=== PATIENT | male | born 1975 | race Caucasian/White ===

== ENCOUNTER 2019-10-04 15:15 | Emergency (ER) | payer OTHER, SELFPAY ==
[2019-10-04 15:29] VITALS: BP 119/69; PULSE 99; RESP 16; TEMP 37; O2SAT 97
--- NOTE | 2019-10-04 15:46 | ED.EYEPROB ---
HPI - Eye Problem General Chief complaint: Eye Problems Stated complaint: eye problems Time Seen by Provider: 10/04/19 15:33 Source: patient and RN notes reviewed Mode of arrival: ambulatory Limitations: no limitations History of Present Illness HPI Narrative: Patient presents today complaining of a possible foreign body to his right eye. Approximately 2 hours ago, he was using a saw and believes he may have gotten sawdust in his eye. Denies vision changes or photophobia. He tried to flush with Visine and water without relief of symptoms. States the area of foreign body does not change. Visual acuity: Left eye: 20/30, right eye: 20/40 chief complaint: foreign body Related Data Allergies Allergy/AdvReac Type Severity Reaction Status Date / Time No Known Allergies Allergy Verified 10/04/19 15:21 Review of Systems Review of Systems: Narrative: CONSTITUTIONAL: Denies body aches, fever, chills, or sweats. EYES: Denies visual changes, redness, or discharge. Foreign body sensation right eye ENT: Denies rhinorrhea, congestion, sore throat, or otalgia. CARDIOVASCULAR: Denies chest pain, palpitations, or edema. RESPIRATORY: Denies cough or dyspnea. GASTROINTESTINAL: Denies abdominal pain, nausea, vomiting, or diarrhea. GENITOURINARY: Denies dysuria or hematuria. SKIN: Denies rash, itching, or wounds. MUSCULOSKELETAL: Denies back pain, joint pain, or myalgia. NEUROLOGIC: Denies headache, numbness, tingling, or weakness. PSYCH: Denies depression or anxiety. PMFSH Social History Social History Gender identity (if verbalized by the patient): Male Comments At time of signature, I have reviewed and agree with nursing past medical, surgical, social and family history unless otherwise noted. Please see nursing chart for further information. There is no relevant family history pertinent to the presenting complaint Exam Narrative: Exam Narrative: GENERAL: Well-appearing, well-nourished, and in no acute distress. HEAD: Normocephalic, atraumatic. EYES: EOMI. No redness or drainage. Conjunctivae normal. Punctate corneal abrasion to 6 oclock position of iris with fluorescein uptake. No foreign body noted. See procedure note. ENT: Mucous membranes pink and moist. NECK: Normal AROM. Supple. No lymphadenopathy. CHEST: No respiratory distress. EXTREMITIES: Normal range of motion. No edema. SKIN: Warm, dry, no rash. Capillary refill normal. Normal skin turgor. NEURO: No focal deficits. Alert and oriented x3. Gait steady. PSYCH: Normal affect. No signs of depression or anxiety. Course Vital Signs Vital signs: Vital Signs Temperature 98.6 F 10/04/19 15:29 Pulse Rate 99 10/04/19 15:29 Respiratory Rate 16 10/04/19 15:29 Blood Pressure 119/69 10/04/19 15:29 Pulse Oximetry 97 10/04/19 15:29 Temperature 98.6 F 10/04/19 15:29 Pulse Rate 99 10/04/19 15:29 Respiratory Rate 16 10/04/19 15:29 Blood Pressure 119/69 10/04/19 15:29 Pulse Oximetry 97 10/04/19 15:29 Reviewed. Pt has been instructed to follow up with his PCP regarding his elevated blood pressure today. Procedures Other Procedure Procedure 1: Other Procedure: Right eye was anesthetized with 1 drop of tetracaine and anesthesia was achieved. The eye was flushed with eye wash. Lid was inverted and examined. Moistened Qtip was used to sweep underneath the upper eyelid with 0 foreign bodies resulting. Cornea was dyed with fluorescein and 1 abrasions or ulcerations were noted. Pt tolerated procedure well. MDM - Eye Problem Differential Diagnosis Differential diagnosis: Likely corneal abrasion, conjunctivitis and corneal ulcer Critical Care Time Critical Care Time Critical Care Time: No Discharge Plan Discharge Clinical Impression: Corneal abrasion Qualifiers: Encounter type: initial encounter Laterality: right Qualified Code(s): S05.01XA - Injury of conjunctiva and corneal abrasion without foreign body, right eye, ini
== END 2019-10-04 15:59 | disposition home or self-care (01) ==
PROVIDERS: Emergency Provider Nurse Practitioner
DX: S05.01XA Injury of conjunctiva and corneal abrasion without foreign body, right eye, initial encounter (principal); X58.XXXA Exposure to other specified factors, initial encounter
CPT/HCPCS: 99213; A9270; G0463

== ENCOUNTER 2021-01-06 09:37 | Emergency (ER) | payer OTHER, SELFPAY ==
[2021-01-06 09:57] VITALS: BP 133/87; PULSE 59; RESP 18; TEMP 36.2; O2SAT 98
--- NOTE | 2021-01-06 10:37 | ED.SKABFB ---
HPI - Skin/Abscess/Foreign Bdy General Chief complaint: Skin/Abscess/Foreign Body Stated complaint: Infected Groin Area Time Seen by Provider: 01/06/21 10:37 Source: patient Mode of arrival: ambulatory Limitations: no limitations History of Present Illness HPI narrative: Victor Hugo Peacock is a 45 yo male with a PMH of heroin addiction hepatitis C, HTN, high cholesterol, [facility] with complaints of odor in the genital area states that he is broken out in that area. Has has red shiny area on the left perineal/inguinal area the patient perceives being odiferous;, used an antifungal for the area and has been picking on the area; he also has a 16-day-old open track jonathan on his left inner forearm. Patient is presently in recovery and is seeking treatment for skin rash in inguinal area and urine that smells Related Data Allergies Allergy/AdvReac Type Severity Reaction Status Date / Time No Known Allergies Allergy Verified 01/06/21 10:21 Review of Systems Review of Systems: CONSTITUTIONAL: Denies fever, chills, sweats. EYES: Denies visual changes, redness, discharge. ENT: Denies rhinorrhea, congestion, sore throat, otalgia. CARDIOVASCULAR: Denies chest pain, palpitations, edema. RESPIRATORY: Denies dyspnea, wheezing, cough GASTROINTESTINAL: Denies abdominal pain, nausea, vomiting, diarrhea. GENITOURINARY: Denies dysuria, hematuria, abnormal discharge. Has odor to urine, shiny coloration of inguinal area SKIN: Denies rash or itching. NEUROLOGIC: Denies numbness, or focal weakness. PSYCHIATRIC: Denies anxiety or depression. PMFSH Past Medical History Medical History Hepatitis C Opiate addiction Social History Social History (Updated 01/06/21 @ 11:00 by Damari Palomares CNP) Smoking packs per day: 1 Smoking cigarettes per day: 20.0 Smoking status: Current every day smoker Tobacco type: cigarettes Alcohol intake: former Substance use: former Substance use type: opiates Other substance usage details: Fentanyl and other Gender identity (if verbalized by the patient): Male Comments At time of signature, I agree with nursing past medical, surgical, social and family history. There is no relevant family history pertinent to the presenting complaint. Exam Narrative: GENERAL: This is a well-nourished, well-developed patient, in moderate distress. HEAD: normocephalic, atraumatic. EYES: Sclera clear/white. Vision is grossly intact. EARS: External ears normal,. Hearing grossly intact. NOSE: External nose normal without nasal discharge, nares without redness, no rhinorrhea. THROAT: Mucous membranes moist, NECK: Neck supple, non-tender CARDIOVASCULAR: Regular rate and rhythm without murmurs, gallops, or rubs. RESPIRATORY: Coarse to auscultation. Breath sounds equal bilaterally. No wheezes, rales, or rhonchi. GASTROINTESTINAL: Abdomen soft, non-tender, SKIN: warm, intact with scaly foul-smelling rash in the left inguinal area NEURO: awake, alert, and oriented to person, place and time. There were no obvious focal neurologic abnormalities. Steady gait EXTREMITIES: Normal range of motion. BACK: Nontender without deformity Course Course Emergency Course: Patient here for skin reaction genital area smelly UA negative started on nystatin, hydrocortisone cream 2.5% Cipro twice daily Follow-up with primary care physician Vital Signs Vital signs: Vital Signs Temperature 97.2 F L 01/06/21 09:57 Pulse Rate 59 L 01/06/21 09:57 Respiratory Rate 18 01/06/21 09:57 Blood Pressure 133/87 01/06/21 09:57 Pulse Oximetry 98 01/06/21 09:57 Temperature 97.2 F L 01/06/21 09:57 Pulse Rate 59 L 01/06/21 09:57 Respiratory Rate 18 01/06/21 09:57 Blood Pressure 133/87 01/06/21 09:57 Pulse Oximetry 98 01/06/21 09:57 MDM - Skin/Abscess/Foreign Bdy Lab Data Labs: Urine Glucose Negative
== END 2021-01-06 11:35 | disposition home or self-care (01) ==
PROVIDERS: Emergency Provider Nurse Practitioner
DX: R30.0 Dysuria (principal); L20.89 Other atopic dermatitis; F17.210 Nicotine dependence, cigarettes, uncomplicated; I10 Essential (primary) hypertension; E78.00 Pure hypercholesterolemia, unspecified; Z86.19 Personal history of other infectious and parasitic diseases
CPT/HCPCS: 81003; 99213; G0463

== ENCOUNTER 2021-02-02 09:43 | Emergency (ER) | payer OTHER, SELFPAY ==
--- NOTE | ~2021-02-02 | CT_ITS ---
EXAMINATION: CT brain wo con INDICATION: Psychosis, hallucinations COMPARISON: None TECHNIQUE: Standard unenhanced head CT. The dose-length product (DLP) was 605.33 mGy-cm. The mA was a djusted according to patient size. Iterative reconstruction technique was employed. FINDINGS: There is no intracranial hemorrhage, acute infarction, or abnormal mass lesion. The ventric les are normal. There is no abnormal mass effect or midline shift. The garg-white matter differentiat ion is normal. The basal cisterns are patent. The orbits are normal. The paranasal sinuses, mastoids and calvarium are normal. IMPRESSION: 1. No acute intracranial abnormality. Reviewed, dictated and finalized at location B. GY INFRASTRUCTURE ENGINEER
--- NOTE | ~2021-02-02 | XR_ITS ---
EXAMINATION: XR chest 2V DATE: 02/02/2021 11:16 INDICATION: Psychosis. Anxiety. TECHNIQUE: Frontal and lateral views of the chest were obtained. COMPARISON: Chest 2 views 07/02/2018 FINDINGS: The chest demonstrates clear lungs without pneumonia, pleural effusion, or pneumothorax. Th e heart size is normal. IMPRESSION: 1. No acute cardiopulmonary disease. Reviewed, dictated and finalized at location A. RESS PACKER
[2021-02-02 09:59] VITALS: BP 152/105; PULSE 100; RESP 20; TEMP 36.8; O2SAT 99
--- NOTE | 2021-02-02 10:04 | ED.GENADULT ---
HPI - General Adult General Chief complaint: Psychiatric Symptoms <JOSE Faustin Last Filed: 02/02/21 22:16> Stated complaint: anxiety <JOSE Faustin Last Filed: 02/02/21 22:16> Time Seen by Provider: 02/02/21 10:02 <JOSE Faustin Last Filed: 02/02/21 22:16> History of Present Illness HPI narrative: Patient is a 45-year-old male with history of substance abuse who comes emergency room today with concerns for hallucinations. Patient reports that since yesterday he has been having auditory hallucinations. He can hear voices telling him to go places and the voices are threatening to kill him. Says that for the last 2 nights he can feel someone trying to pull down his pants. He feels like someone is trying to control his mind. He thinks someone is drugging him. He does endorse being suicidal. He says that he is feeling suicidal because the voices are driving him nuts . When asked if he has a specific plan he just says the voices . He denies any homicidal ideation. Says that he last used fentanyl about 8 weeks ago. Says he last use being about 2 weeks ago. Says his only recent drug use was marijuana. Does not use alcohol. Does smoke cigarettes. Does not have any known chronic medical conditions. <JOSE Faustin Last Filed: 02/02/21 22:16> Related Data Home medications: Home Medications Medication Instructions Recorded Confirmed No Home Medications 02/02/21 02/02/21 <JOSE Faustin Last Filed: 02/02/21 22:16> Allergies/adverse reactions: Allergies Allergy/AdvReac Type Severity Reaction Status Date / Time No Known Allergies Allergy Verified 02/02/21 10:09 <JOSE Faustin Last Filed: 02/02/21 22:16> Review of Systems Constitutional: Constitutional: Reports as per HPI, Denies fever(s), Denies night sweats and Denies weakness <JOSE Faustin Last Filed: 02/02/21 22:16> Cardiovascular: Cardiovascular: Denies chest pain, Denies edema, Denies leg edema, Denies dyspnea and Denies orthopnea <Anthony MatyTarsha Quiroga PA-C Last Filed: 02/02/21 22:16> Respiratory: Respiratory: Denies cough and Denies dyspnea <Anthony MatyTarsha Quiroga PA-C Last Filed: 02/02/21 22:16> Gastrointestinal: Gastrointestinal: Denies abdominal pain, Denies constipation, Denies diarrhea, Denies nausea and Denies vomiting <Anthony MatyTarsha Quiroga PA-C - Last Filed: 02/02/21 22:16> Musculoskeletal: Musculoskeletal: Denies abnormal gait, Denies back pain, Denies numbness and Denies tingling <Anthony MatyTarsha Quiroga PA-C Last Filed: 02/02/21 22:16> Neurologic: Denies Abnormal speech present, Denies abnormal gait, Denies numbness, Denies tingling and Denies weakness <Anthony MatyTarsha Quiroga PA-C Last Filed: 02/02/21 22:16> Psychiatric: Psychiatric: Reports as per HPI, Reports anxiety and Reports paranoia <Anthony MatyTarsha Quiroga PA-C Last Filed: 02/02/21 22:16> [facility] Past Medical History Medical History: Medical History Hepatitis C Opiate addiction <Anthony MatyTarsha Quiroga PA-C Last Filed: 02/02/21 22:16> Social History Social History: Social History (Updated 01/06/21 @ 11:00 by Damari Palomares CNP) Smoking packs per day: 1 Smoking cigarettes per day: 20.0 Smoking status: Current every day smoker Tobacco type: cigarettes Alcohol intake: former Substance use: former Substance use type: marijuana and IV drugs Other substance usage details: Fentanyl and other Gender identity (if verbalized by the patient): Male <Anthony Quiroga PA-C Last Filed: 02/02/21 22:16> Exam Const: General: cooperative, alert, awake, Physically active, anxious and other (Frequently tearful.) <Anthony Quiroga PA-C Last Filed: 02/02/21 22:16> Orientation/consciousness: patient oriented x3 <Anthony Quiroga PA-C - Last Filed: 02/02/21 22:16> H
--- NOTE | 2021-02-02 10:47 | ECG_ITS ---
Measurements Intervals [place] Rate: 99 P: 41 CO: 131 QRS: -18 QRSD: 86 T: 43 QT: 348 QTc: 447 Interpretive Statements SINUS RHYTHM VOLTAGE CRITERIA FOR LVH BASELINE ARTIFACT- I, II, V2-V3 BORDERLINE ECG Electronically Signed On 02-02-2021 15:24:41 NEWSPAPER CLIPPER by Alcides Zaman D.O.
[2021-02-02] MEDS: OLANZapine 5 MG TABLET 10 MG PO (11:17)
[2021-02-02 11:31] LABS: Basophils Percent Auto 0.3 % (0.2-1.2); Eosinophils Absolute Auto 0.1 K/mm3 (0-0.3); Eosinophils Percent Auto 0.8 % (0-4.4); Hematocrit 50.3 % (42.0-52.0); Hemoglobin 16.6 g/dL (14.0-18.0); Immature Granulocyte Absolute 0.07 K/mm3 (0.00-0.031); Immature Granulocyte Percent A 0.6 % (0-0.5); Lymphocytes Absolute Auto 2.43 K/mm3 (0.9-3.2); Lymphocytes Percent Auto 20.9 % (18.3-44.2); Mean Corpuscular Volume 84.8 fl (80-100); Mean Platelet Volume 9.1 fl (7.4-10.4); Monocytes Absolute Auto 0.7 K/mm3 (0.1-0.6); Monocytes Percent Auto 5.6 % (2.6-8.5); Neutrophils Absolute Auto 8.3 K/mm3 (1.3-6.7); Neutrophils Percent Auto 71.8 % (45.5-73.1); Platelet Count Result 317 k/mm3 (150-375); Red Blood Count 5.93 M/mm3 (4.6-6.20); Red Cell Distribution Width 14.8 % (11.5-14.5); White Blood Count 11.6 K/mm3 (4.5-10.0)
[2021-02-02 11:36] LABS: Barbiturate Screen Urine Negative (Negative); Benzodiazepines Screen Urine Negative (Negative)
[2021-02-02 11:37] LABS: Add Urine Microscopic? YES; Appearance Urine Cloudy (Clear); Bilirubin Urine Negative (Negative); Blood Urine Negative (Negative); Color Urine Amber (Yellow); Glucose Urine UA Negative (Negative); Ketones Urine Negative (Negative); Leukocyte Esterase Ur Negative LEU/UL (Negative); Mucus Urine Heavy /lpf; Nitrate Urine Negative (Negative); Protein Urine 1+ mg/dL (Negative); Specific Grav Ur 1.033 (1.001-1.035); WBC Urine 0-3 /hpf
[2021-02-02 11:38] LABS: Cannabinoid Screen Urine Positive (Negative); Cocaine Screen Urine Negative (Negative); Methadone Screen Urine Negative (Negative); Opiate Screen Urine Negative (Negative); Phencyclidine Screen Urine Negative (Negative)
[2021-02-02 11:45] LABS: Alanine Aminotransferase 94 U/L (4-50); Albumin Level 4.7 g/dL (3.5-5.1); Alkaline Phosphatase 119 U/L (38-126); Anion Gap 8 mmol/L (8-16); Aspartate Amino Transferase 53 U/L (17-59); Bilirubin,Total 0.5 mg/dL (0.2-1.3); Blood Urea Nitrogen 16 mg/dL (9-20); Calcium 9.9 mg/dL (8.4-10.2); Carbon Dioxide 29 mmol/L (22-30); Chloride 103 mmol/L (98-107); Estimated CRCL calculation 126 ml/min; Estimated Glomerular Filt Rate > 60; Glucose 106 mg/dL (65-110); Potassium 4.3 mmol/L (3.4-5.0); Sodium 140 mmol/L (137-145)
[2021-02-02 11:48] LABS: Acetaminophen < 10 ug/mL (10-30); Ethanol < 10 mg/dL (<10); Salicylate < 1.0 mg/dL (2-20)
[2021-02-02 12:13] LABS: Amphetamine Screen Urine Positive (Negative)
[2021-02-02 13:25] LABS: EDCOVIDSCREEN Negative (Negative)
--- NOTE | 2021-02-02 18:01 | PC.NURSE ---
Patient in room stating he needs something for anxiety and to help him sleep. PATY Ford notified.
[2021-02-02] MEDS: LORazepam (*CRX) 1 MG TABLET PO (18:20)
--- NOTE | 2021-02-02 19:38 | PC.NURSE ---
report received from Aguila RN, assumed care at this time. pt sleeping at this time. sitter at bedside.
[2021-02-03] MEDS: IBUPROFEN 600 MG TABLET PO (00:16)
[2021-02-03 00:19] VITALS: BP 107/58; PULSE 72; RESP 16; TEMP 36.3; O2SAT 99
--- NOTE | 2021-02-03 02:18 | PC.NURSE ---
spoke with Christ from [facility]. no capacity.
[2021-02-03 07:29] VITALS: BP 100/63; PULSE 84; RESP 18; O2SAT 98
--- NOTE | 2021-02-03 07:32 | PC.NURSE ---
ordered patient meal tray
--- NOTE | 2021-02-03 08:37 | PC.NURSE ---
Pt becoming agitated at this time. Asking where his van his and insisting that someone goes and checks on his van. pt attempting to walk out and his yelling and then starts crying. accusing staff of lying to him. VORB for 1mg PO ativan.
--- NOTE | 2021-02-03 08:46 | PC.NURSE ---
when given the medication pt insists on seeing the package. pt places pill in his mouth and then spits it out and states you lied to me, this says lorazapam not ativan! this RN explained that it is the same thing. pt finally agrees to take medication.
--- NOTE | 2021-02-03 08:50 | PC.NURSE ---
Pt attempting to leave at this time. Security following pt to the parking lot and [place] [employer] called. Pt agrees to walk back in on his own. Pt still yelling and cursing at staff, making threatening statements. VORB for 2 mg Ativan IM and 5 mg Haldol IM
[2021-02-03] MEDS: LORazepam (*CRX) 1 MG TABLET PO (08:51)
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
[2021-02-03] MEDS: HALOPERIDOL LACTATE 5 MG/ML VIAL IV PUSH (09:14)
[2021-02-03] MEDS: LORazepam INJ (*CRX) 2 MG/ML VIAL IV PUSH (09:14)
--- NOTE | 2021-02-03 09:15 | PC.NURSE ---
Pt agrees to let nurse give injection with out a fight. PD in presence at this time.
--- NOTE | 2021-02-03 09:23 | PC.NURSE ---
Pt on the phone with his mother at this time. Security near pt at this time
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
--- NOTE | 2021-02-03 11:09 | PC.NURSE ---
allie called to check status of placement. reported that [facility] is the only facility that we have heard from
--- NOTE | 2021-02-03 11:38 | PC.NURSE ---
Faxed pt chart to [facility]
[2021-02-03 13:59] VITALS: BP 103/67; PULSE 80; RESP 18; O2SAT 98
--- NOTE | 2021-02-03 13:59 | PC.NURSE ---
Pt awake, calm at this time. Pt requesting meal. Tray ordered for pt and crackers given at this time.
--- NOTE | 2021-02-03 16:52 | PC.NURSE ---
called Amrit to get an update on status of pt admission. Logan stated that he will be presenting pts chart to psychiatrist soon and will call back
--- NOTE | 2021-02-03 17:07 | PC.NURSE ---
ordered pt a dinner tray
[2021-02-03 17:13] VITALS: BP 133/96; PULSE 105; RESP 18; O2SAT 99
--- NOTE | 2021-02-03 17:32 | PC.NURSE ---
Amrit called back and states sorry for the hold up but our facility is full now full, our ER is blowing up
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
[2021-02-03] MEDS: ACETAMINOPHEN 500 MG TABLET 1000 MG PO ×2 (18:27→23:23)
--- NOTE | 2021-02-03 19:24 | PC.NURSE ---
sleeping resp even unlabored observer at door
--- NOTE | 2021-02-03 23:29 | PC.NURSE ---
c/o lower back pain 09/30 ordered hospital bed for patient tylenol 1000mg given
[2021-02-03] MEDS: MELATONIN 5 MG TABLET 10 MG PO (23:59)
--- NOTE | 2021-02-04 01:11 | PC.NURSE ---
2330 pt placed in hosp bed
--- NOTE | 2021-02-04 03:18 | PC.NURSE ---
Sleeping resp even unlabored observer at door.
--- NOTE | 2021-02-04 06:14 | PC.NURSE ---
[facility] called back unable to take patient
--- NOTE | 2021-02-04 07:39 | PC.NURSE ---
Pt given meal tray at this time
--- NOTE | 2021-02-04 07:40 | PC.NURSE ---
[facility] called and they state they will send someone out at 1230 today to reevaluate pt.
[2021-02-04 07:46] VITALS: BP 134/88; PULSE 82; RESP 18; O2SAT 98
--- NOTE | 2021-02-04 07:54 | PC.NURSE ---
Pt states he is not currently having any hallucinations and states he does not want to kill himself but when asked if he wants to hurt anyone else he states if you cross me i will
--- NOTE | 2021-02-04 08:15 | PC.NURSE ---
0800- Patients behavior escalating. Yelling, cursing very loud. Disruptive to the Dept. I need take a shit. I need to smoke, I am leaving here, and you cannot stop me . This RN attempted to de escalate the behavior, pt not rationale. Pt continues to scream, I want to smoke, I want my clothes, I want my cigarettes and you cannot stop me . Patient standing in door way of his room still. Offered pt nicotine patch, I don't want any fucking patch . Pt started to walk out of his room. you cannot fucking stop me, I need to take a shit, I want to smoke, and you cannot stop me . Told patient his room is next to a bathroom. The patient continued to walk out the EMS doors. Pt continued yelling and screaming. Pt walked towards the woman pavilion, asked pt to return to ED. He continued to yell profanities. He then came back into the ED. PD was notified that this patient again attempted to elope.
[2021-02-04] MEDS: LORazepam INJ (*CRX) 2 MG/ML VIAL IM (08:33)
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
[2021-02-04] MEDS: NICOTINE (*PBKC) 14 MG PATCH 1 PATCH TRANSDERM (09:15)
--- NOTE | 2021-02-04 10:17 | PC.NURSE ---
Pt yelling out i need something for this fucking back pain Pt states siobhan been laying here in this fucking bed for 3 fucking days and you havent done anything This RN calmly asked pt to please stop yelling. pt screams I dont' give a fuck the only way i get attention is if i fucking yell, and dont give me no naproxen or tylenol becuase it doesn't fucking work this RN notified MD of pt request. order for 30 mg IM toradol.
[2021-02-04] MEDS: KETOROLAC 30 MG/ML VIAL (*BKC) IM (10:25)
--- NOTE | 2021-02-04 10:58 | PC.NURSE ---
Pt again yelling in room. This RN to doorway to ask pt to stop yelling. Pt states Im gonna fucking leave. Im refusing treatment. you cant fucking keep my here against my will, get out out my way Pt exits rooms and walks toward ambulance doors. Pt exits ER and security follow. Antonio BALL called. Pt walked across [facility] and into the neighborhood across the street.
--- NOTE | 2021-02-04 13:14 | PC.NURSE ---
1053- Patients behavior escalating again. Pt yelling , screaming cursing at staff & sitter. you can't fucking hold me here, I am leaving. Pt. continuously restating this yelling louder. Patient ambulated out of room, screaming ' I'm getting the fuck out of here, you cannot make me stay'. ROGER Gerard attempting multiple times to de-escalate the patient, he continued to walk out the EMS doors of the ED. Pt witnessed walking across the parking lot towards [place] [address] , crossed the road , went into the neighborhood across the road , walked/ran until unable to see any longer. This RN, Rajani RN, security x 2 witness patient leaving the premises. [employer] made aware.
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
--- NOTE | 2021-02-04 14:30 | PC.NURSE ---
PT mother Arely Gordon called checking in on the patient. She was made aware the patient eloped the dept, and PD are looking for him. I told her [employer] was going to contact [employer] to do a welfare check on her & to notify her of his elopement. PT mother states she just got home.
== END 2021-02-04 21:46 ==
PROVIDERS: Emergency Medicine; Physician Assistant Medical; Emergency Provider Emergency Medicine
DX: R45.851 Suicidal ideations (principal); R44.0 Auditory hallucinations; F17.210 Nicotine dependence, cigarettes, uncomplicated; Z20.822 Contact with and (suspected) exposure to COVID-19
CPT/HCPCS: 36415; 70450; 71046; 80053; 80307; 81001; 84443; 85025; 87426; 93005; 96372; 96374; 96375; 99285; A9270; C9803; J1630; J1885; J2060

== ENCOUNTER 2021-09-27 14:03 | Emergency (ER) | payer OTHER, SELFPAY ==
[2021-09-27 14:11] VITALS: BP 138/74; PULSE 95; RESP 16; TEMP 37; O2SAT 99
--- NOTE | 2021-09-27 14:20 | ED.WOUNDLAC ---
HPI - Wound/Laceration General Chief Complaint: Wound/Laceration Stated Complaint: staph infection left arm Time Seen by Provider: 09/27/21 14:20 Source: patient Mode of arrival: ambulatory Limitations: no limitations History of Present Illness HPI narrative: 46-year-old male presents with infection to left upper arm for approximately 4 days. States he attempted to drain himself with a toothpick. Only got a small amount of drainage. Also applied. With no relief. States that pressure and pain is increased today. Denies fever chills. Range of motion normal to left arm. All systems reviewed and negative except as noted above. Related Data Allergies Allergy/AdvReac Type Severity Reaction Status Date / Time No Known Allergies Allergy Verified 02/02/21 10:09 Review of Systems Review of Systems: CONSTITUTIONAL: Denies fever, chills, or sweats. EYES: Denies visual changes, redness, or discharge. ENT: Denies rhinorrhea, congestion, sore throat, or otalgia. CARDIOVASCULAR: Denies chest pain, palpitations, or edema. RESPIRATORY: Denies cough or dyspnea. GASTROINTESTINAL: Denies abdominal pain, nausea, vomiting, or diarrhea. GENITOURINARY: Denies dysuria or hematuria. SKIN: Reports pain, redness, swelling to L upper arm. MUSCULOSKELETAL: Denies back pain, joint pain, or myalgia. NEUROLOGIC: Denies headache, numbness, or weakness. PSYCHIATRIC: Denies anxiety or depression. All other systems reviewed are negative, except as documented in HPI. PMFSH Past Medical History Medical History Hepatitis C Opiate addiction Social History Social History (Updated 01/06/21 @ 11:00 by Damari Palomares CNP) Smoking packs per day: 1 Smoking cigarettes per day: 20.0 Smoking status: Current every day smoker Tobacco type: cigarettes Alcohol intake: former Substance use: former Substance use type: marijuana and IV drugs Other substance usage details: Fentanyl and other Gender identity (if verbalized by the patient): Male Comments At time of signature, agree with nursing past medical, surgical, social and family history. There is no relevant family history pertinent to the presenting complaint. Exam Narrative: GENERAL: This is a well-nourished, well-developed patient, in no apparent distress. HEAD: normocephalic, atraumatic. EYES: PERRL. Sclera clear/white. Vision is grossly intact. EARS: External ears normal NOSE: External nose normal NECK: Neck supple, non-tender without lymphadenopathy, masses or thyromegaly. CARDIOVASCULAR: Regular rate and rhythm without murmurs, gallops, or rubs. RESPIRATORY: Clear to auscultation. Breath sounds equal bilaterally. No wheezes, rales, or rhonchi. SKIN: warm, Dry, intact with no suspicious lesions or rash, good texture and turgor. abscess L upper arm approx. 14cm x 11cm. fluctuant. NEURO: awake, alert, and oriented to person, place and time. There were no obvious focal neurologic abnormalities. EXTREMITIES: No joint tenderness, effusion, or edema noted. No calf tenderness. Negative Homans sign bilaterally. Course Course Level of Care: Express Care Visit Vital Signs Vital signs: Vital Signs Temperature 37.0 C 09/27/21 14:11 Pulse Rate 95 09/27/21 14:11 Respiratory Rate 16 09/27/21 14:11 Blood Pressure 138/74 09/27/21 14:11 Pulse Oximetry 99 09/27/21 14:11 Oxygen Delivery Room Air 09/27/21 14:11 Temperature 37.0 C 09/27/21 14:11 Pulse Rate 95 09/27/21 14:11 Respiratory Rate 16 09/27/21 14:11 Blood Pressure 138/74 09/27/21 14:11 Pulse Oximetry 99 09/27/21 14:11 Oxygen Delivery Room Air 09/27/21 14:11 reviewed Procedures Abscess I/D upper extremity: Date of Incision: 09/27/21 Time of Incision: 15:00 Side (if applicable): left Sedation/analgesia: none Local Anesthetic: lidocaine 2% (5ml) Amount of anesthesia used (mL): 5 Techn
--- NOTE | 2021-09-27 14:50 | PC.NURSE ---
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 wound cx obtained.
== END 2021-09-27 15:08 | disposition home or self-care (01) ==
PROVIDERS: Emergency Provider Nurse Practitioner Family
DX: L02.414 Cutaneous abscess of left upper limb (principal); F17.210 Nicotine dependence, cigarettes, uncomplicated
CPT/HCPCS: 10060; 87070; 87075; 87076; 87205; 99213; G0463

== ENCOUNTER 2021-09-29 08:26 | Emergency (ER) | payer OTHER, SELFPAY ==
--- NOTE | 2021-09-29 08:29 | ED.GENADULT ---
HPI - General Adult General Chief complaint: Wound/Laceration Stated complaint: wound care Time Seen by Provider: 09/29/21 08:28 History of Present Illness HPI narrative: 46-year-old male patient presents to the [facility] for a follow-up of the abscess to the left upper arm. Patient states about 2 days ago he came in and the abscess was opened and drained and packed he was instructed to take out the packing and repacking in 48 hours. Patient states he came in today because he was unable to reach the wound and pack it himself. Patient states his pain is gone and states he is feeling much better. Denies taking anything for pain. Continues to take the clindamycin and did call the surgeon for follow-up but cannot get in until towards the end of September. Patient denies any fevers, body aches or chills. Related Data Allergies Allergy/AdvReac Type Severity Reaction Status Date / Time No Known Allergies Allergy Verified 02/02/21 10:09 Review of Systems Review of Systems: CONSTITUTIONAL: Denies fever, chills, or sweats. EYES: Denies visual changes, redness, or discharge. ENT: Denies rhinorrhea, congestion, sore throat, or otalgia. CARDIOVASCULAR: Denies chest pain, palpitations, or edema. RESPIRATORY: Denies cough or dyspnea. GASTROINTESTINAL: Denies abdominal pain, nausea, vomiting, or diarrhea. GENITOURINARY: Denies dysuria or hematuria. SKIN: Denies rash or itching. Positive abscess to left upper arm MUSCULOSKELETAL: Denies back pain, joint pain, or myalgia. NEUROLOGIC: Denies headache, numbness, or weakness. PSYCHIATRIC: Denies anxiety or depression. [facility] Past Medical History Medical History Hepatitis C Opiate addiction Social History Social History Smoking packs per day: 1 Smoking cigarettes per day: 20.0 Smoking status: Current every day smoker Tobacco type: cigarettes Alcohol intake: former Substance use: former Substance use type: marijuana and IV drugs Other substance usage details: Fentanyl and other Gender identity (if verbalized by the patient): Male Comments At the time of my signature I agree with nursing past medical history, surgical, social, and family history. There is no relevant family history pertinent to the presenting complaint. Exam Narrative: GENERAL: Well-appearing, well-nourished, and in no acute distress. HEAD: Normocephalic, atraumatic. EYES: PERRLA and EOMI. ENT: Nares clear, no rhinorrhea or epistaxis. Mucous membranes moist. NECK: Supple. No lymphadenopathy CHEST: Clear to auscultation. No respiratory distress. HEART: Regular rate and rhythm. No murmur heard. Normal peripheral pulses. ABDOMEN: Soft, nontender, nondistended, normal active bowel sounds. EXTREMITIES: Normal range of motion. No edema. SKIN: Warm, dry, no rash. Patient has small incision noted to the left upper bicep area. The packing was removed and there was still some brownish and yellowish discharge noted that was removed. The area around redness measures approximately 7 x 3 cm. No warmth noted to the touch. NEURO: No focal deficits. Alert and oriented x3. Course Course Level of Care: Express Care Visit Vital Signs Vital signs: Vital Signs Temperature 36.5 C 09/29/21 08:43 Pulse Rate 88 09/29/21 08:43 Respiratory Rate 20 09/29/21 08:43 Blood Pressure 110/65 09/29/21 08:43 Pulse Oximetry 96 09/29/21 08:43 Oxygen Delivery Room Air 09/29/21 08:43 Temperature 36.5 C 09/29/21 08:43 Pulse Rate 88 09/29/21 08:43 Respiratory Rate 20 09/29/21 08:43 Blood Pressure 110/65 09/29/21 08:43 Pulse Oximetry 96 09/29/21 08:43 Oxygen Delivery Room Air 09/29/21 08:43 Vital signs reviewed Procedures Other Procedure Procedure 1: Other Procedure: Packing was removed from the wound to the left upper arm. There was some discharge that was removed from th
[2021-09-29 08:43] VITALS: BP 110/65; PULSE 88; RESP 20; TEMP 36.5; O2SAT 96
--- NOTE | 2021-09-29 09:09 | PC.NURSE ---
provider cleaned wound and removed and replaced packing and redressed wound with gauze and clark.
== END 2021-09-29 09:14 | disposition home or self-care (01) ==
PROVIDERS: Emergency Provider Nurse Practitioner Family
DX: Z48.01 Encounter for change or removal of surgical wound dressing (principal); F17.210 Nicotine dependence, cigarettes, uncomplicated; Z86.19 Personal history of other infectious and parasitic diseases
CPT/HCPCS: 99212; G0463

== ENCOUNTER 2022-01-23 10:08 | Emergency (ER) | payer OTHER, SELFPAY ==
[2022-01-23 10:17] VITALS: BP 117/71; PULSE 100; RESP 18; TEMP 36.6; O2SAT 99
--- NOTE | 2022-01-23 10:38 | ED.SKABFB ---
HPI - Skin/Abscess/Foreign Bdy General Chief complaint: Extremity Problem,Nontraumatic Stated complaint: left swollen leg Time Seen by Provider: 01/23/22 10:25 Source: patient Mode of arrival: ambulatory Limitations: no limitations History of Present Illness HPI narrative: Patient presents today complaining of redness and swelling to his left foot, lower leg, and portion of his upper leg. States that for 1 week he scrubbed his leg with a scouring pad of coal tar, causing some abrasions. Yesterday he noted some swelling to the leg him today that swelling and redness was significantly worse. Reports pain radiates into the groin area. History of MRSA. Currently rates his pain 07/01. Related Data Home Medications Medication Instructions Recorded Confirmed No Home Medications 01/23/22 01/23/22 Allergies Allergy/AdvReac Type Severity Reaction Status Date / Time No Known Allergies Allergy Verified 01/23/22 10:14 Review of Systems Review of Systems: CONSTITUTIONAL: Denies body aches, fever, chills, or sweats. EYES: Denies visual changes, redness, or discharge. ENT: Denies rhinorrhea, congestion, sore throat, or otalgia. CARDIOVASCULAR: Denies chest pain, palpitations, or edema. RESPIRATORY: Denies cough or dyspnea. GASTROINTESTINAL: Denies abdominal pain, nausea, vomiting, or diarrhea. GENITOURINARY: Denies dysuria or hematuria. SKIN: + Redness and swelling to the left leg MUSCULOSKELETAL: Denies back pain, joint pain, or myalgia. NEUROLOGIC: Denies headache, numbness, tingling, or weakness. PSYCH: Denies depression or anxiety. [facility] Past Medical History Medical History Hepatitis C Opiate addiction Social History Social History Smoking packs per day: 1 Smoking cigarettes per day: 20.0 Smoking status: Current every day smoker Tobacco type: cigarettes Alcohol intake: former Substance use: former Substance use type: marijuana and IV drugs Other substance usage details: Fentanyl and other Gender identity (if verbalized by the patient): Male Comments At time of signature, I have reviewed and agree with nursing past medical, surgical, social and family history unless otherwise noted. Please see nursing chart for further information. There is no relevant family history pertinent to the presenting complaint Exam Narrative: GENERAL: Well-appearing, well-nourished, and in no acute distress. HEAD: Normocephalic, atraumatic. EYES: EOMI. No redness or drainage. Conjunctivae normal. ENT: Mucous membranes pink and moist. NECK: Normal AROM. CHEST: No respiratory distress. EXTREMITIES: Left le to 4+ pedal edema. 2+ pitting to the lower leg with weeping. Ulceration with purulent discharge to the medial ankle. Erythema from the mid thigh to the toes. Distal sensation intact. Capillary refill normal. Pedal pulses strong with Doppler. Difficult to palpate due to edema. Range of motion of toes and ankle limited due to edema. SKIN: Warm, dry, no rash. Capillary refill normal. Normal skin turgor. NEURO: No focal deficits. Alert and oriented x3. Gait steady. PSYCH: Normal affect. No signs of depression or anxiety. Course Course Emergency Course: Patient will transfer to the emergency department for further evaluation. Level of Care: Express Care Visit Vital Signs Vital signs: Vital Signs Temperature 97.8 F 01/23/22 10:17 Pulse Rate 100 01/23/22 10:17 Respiratory Rate 18 01/23/22 10:17 Blood Pressure 117/71 01/23/22 10:17 Pulse Oximetry 99 01/23/22 10:17 Oxygen Delivery Room Air 01/23/22 10:17 Temperature 97.8 F 01/23/22 10:17 Pulse Rate 100 01/23/22 10:17 Respiratory Rate 18 01/23/22 10:17 Blood Pressure 117/71 01/23/22 10:17 Pulse Oximetry 99 01/23/22 10:17 Oxygen Delivery Room Air 01/23/22 10:17 Revi
== END 2022-01-23 10:51 | disposition short-term general hospital (02) ==
PROVIDERS: Emergency Provider Nurse Practitioner
DX: L03.116 Cellulitis of left lower limb (principal); F17.210 Nicotine dependence, cigarettes, uncomplicated; Z86.19 Personal history of other infectious and parasitic diseases
CPT/HCPCS: 99212; G0463

== ENCOUNTER 2022-01-23 13:11 | Observation (INO) | payer OTHER, SELFPAY ==
--- NOTE | ~2022-01-23 | US_ITS ---
EXAMINATION: US venous doppler [facility] DATE: 01/23/2022 17:20 INDICATION: swelling, redness . TECHNIQUE: Grayscale images without and with compression and Doppler images of the left lower extremi ty veins were obtained. COMPARISON: None FINDINGS: The left common femoral vein, profunda femoral vein, femoral vein, popliteal vein and greater sapheno us vein are patent. Subcutaneous edema in the leg. Posterior tibial and peroneal veins not visualized . Enlarged left inguinal lymph nodes. IMPRESSION: 1. Posterior tibial and peroneal veins not visualized. 2. Otherwise patent left lower extremity veins. No evidence of deep venous thrombosis in visualized v eins. 3. Left inguinal lymphadenopathy. 4. Leg edema. Reviewed, dictated and finalized at location K. IMPRESSION: 1. Posterior tibial and peroneal veins not visualized. 2. Otherwise patent left lower extremity veins. No evidence of deep venous thro mbosis in visualized veins. 3. Left inguinal lymphadenopathy. 4. Leg edema.
[2022-01-23 14:11] VITALS: BP 121/86; PULSE 107; RESP 18; TEMP 36.5; O2SAT 100
[2022-01-23 14:54] LABS: Basophils Percent Auto 0.3 % (0.2-1.2); Eosinophils Percent Auto 0.4 % (0-4.4); Hematocrit 40.6 % (42.0-52.0); Immature Granulocyte Absolute 0.05 K/mm3 (0.00-0.031); Immature Granulocyte Percent A 0.5 % (0-0.5); Lymphocytes Absolute Auto 1.07 K/mm3 (0.9-3.2); Lymphocytes Percent Auto 10.3 % (18.3-44.2); Mean Corpuscular Volume 84.2 fl (80-100); Monocytes Absolute Auto 0.6 K/mm3 (0.1-0.6); Monocytes Percent Auto 5.9 % (2.6-8.5); Neutrophils Absolute Auto 8.5 K/mm3 (1.3-6.7); Neutrophils Percent Auto 82.6 % (45.5-73.1); Platelet Count Result 232 k/mm3 (150-375); Red Blood Count 4.82 M/mm3 (4.6-6.20); Red Cell Distribution Width 13.5 % (11.5-14.5); White Blood Count 10.3 K/mm3 (4.5-10.0)
[2022-01-23 15:12] LABS: Alanine Aminotransferase 41 U/L (6-50); Albumin Level 3.9 g/dL (3.5-5.1); Alkaline Phosphatase 109 U/L (38-126); Anion Gap 11 mmol/L (8-16); Aspartate Amino Transferase 43 U/L (17-59); Bilirubin,Total 0.4 mg/dL (0.2-1.3); Blood Urea Nitrogen 25 mg/dL (9-20); Calcium 8.6 mg/dL (8.4-10.2); Carbon Dioxide 27 mmol/L (22-30); Chloride 94 mmol/L (98-107); Estimated CRCL calculation 100 ml/min; Estimated Glomerular Filt Rate > 60; Glucose 113 mg/dL (65-110); Potassium 3.9 mmol/L (3.4-5.0); Sodium 132 mmol/L (137-145)
[2022-01-23 15:22] LABS: CRP 21.7 mg/dL (<1.0)
[2022-01-23 16:43] VITALS: BP 132/72; PULSE 104; RESP 18; TEMP 37.2; O2SAT 97
--- NOTE | 2022-01-23 17:07 | ED.EXTPRO ---
HPI - Extremity Problem General Chief complaint: Extremity Problem,Nontraumatic <JOSE Leroy Last Filed: 01/23/22 20:29> Stated complaint: SWELLING LEFT LOWER LEG <JOSE Leroy Last Filed: 01/23/22 20:29> Time Seen by Provider: 01/23/22 16:44 <JOSE Leroy Last Filed: 01/23/22 20:29> History of Present Illness HPI Narrative: Patient is a 46-year-old male with a history of MRSA here for evaluation of left lower extremity pain, swelling and redness over the past several days. Patient states that he was working out on a roof and got cold tar on his legs, he was scrubbing the areas with steel wool trying to get the tar off, resulting in several small abrasions to his leg. Over the past week, he has noticed redness and swelling to his leg develop around the abrasions in addition to fluid weeping out of the abrasions. He was sent here from urgent care due to severity of cellulitis. Denies fevers or chills, nausea or vomiting. He has a history of MRSA cellulitis and sepsis; reportedly required 3 weeks of IV vancomycin. <JOSE Leroy Last Filed: 01/23/22 20:29> Related Data Home medications: Home Medications Medication Instructions Recorded Confirmed No Home Medications 01/23/22 01/23/22 <JOSE Leroy Last Filed: 01/23/22 20:29> Allergies/Adverse reactions: Allergies Allergy/AdvReac Type Severity Reaction Status Date / Time No Known Allergies Allergy Verified 01/23/22 10:14 <JOSE Leroy Last Filed: 01/23/22 20:29> Review of Systems Review of Systems: Gen: Denies fevers or chills Eyes: Denies eye pain or visual change ENT: Denies congestion Respiratory: Denies shortness of breath or cough CV: Denies chest pain or palpitations GI: Denies abdominal pain nausea, emesis or diarrhea denies burning, urgency, frequency or hematuria Musculoskeletal: Reports left lower extremity pain redness and swelling. Neuro: Denies numbness, tingling, weakness or focal weakness Skin: Denies rash Except as documented, all other systems reviewed and negative <Amanda Garay PA-C - Last Filed: 01/23/22 20:29> [facility] Past Medical History Medical History: Medical History (Updated 01/23/22 @ 18:17 by Amanda Garay PA-C) Hepatitis C Opiate addiction <Amanda Garay PA-C - Last Filed: 01/23/22 20:29> Surgical History Surgical History: Surgical History H/O arthroscopic knee surgery <Amanda Garay PA-C - Last Filed: 01/23/22 20:29> Family History Family History: Family History (Updated 01/23/22 @ 19:14 by Nicky Hardwick NP) Father Hypertension <Amanda Garay PA-C - Last Filed: 01/23/22 20:29> Social History Social History: Social History (Updated 01/23/22 @ 19:15 by Nicky Hardwick NP) 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 Smoking packs per day: 1 Smoking cigarettes per day: 20.0 Years smoked: 30 Smoking pack-years: 30.00 Smoking status: Current some day smoker Tobacco type: cigarettes Alcohol intake: never Substance use: former Substance use type: opiates Other substance usage details: Fentanyl and other Has the Lack of Transportation Kept You From Medical Appointments or From Getting Medications?: No Within the Past 12 Months, Were You Worried Whether Your Food Would Run Out Before You Got Money to Buy More?: Never True What is Your Housing Situation Today?: I Have Housing Are You Worried That in the Next 2 Months, You May Not Have Your Own Housing to Live In?: Decline to Answer Do You Have Trouble Paying Your Heating Or Electricity Bill?: Decline to Answer Do You Have Trouble Paying For Medicines?: Decline to Answer Are You Currently Unemployed and Looking for Work?: Decline to Answer Highest Level of Educat
[2022-01-23] MEDS: SODIUM CHLORIDE 0.9% IV 1,000 ML 999 ML IV CONT (17:30)
[2022-01-23 17:53] LABS: Lactic Acid Reflex 1.4 mmol/L (0.7-2.0)
[2022-01-23 18:04] LABS: SARS-CoV-2 RNA PCR Negative
[2022-01-23 18:37] VITALS: BP 143/77; PULSE 98; RESP 18; TEMP 36.9; O2SAT 98
--- NOTE | 2022-01-23 19:13 | PM.IMHP ---
H&P: HPI History of Present Illness Date/Time: 01/23/22 19:13 Chief Complaint: Swelling to left leg Narrative: This is a 46-year-old male patient who has a history of MRSA and has had multiple abscesses. The patient has a history of IV drug use. The patient came to the emergency room today because of left lower extremity pain swelling and redness over the last several days. The patient stated he was working on a roof and got coal tar on his legs. The patient was rubbing the areas with steel wool trying to get them off. The patient stated that he also used other chemicals to get the tore off. The patient stated it was doing well and then he had stepped on a tack. The patient's was sent here from urgent care due to the severity of the cellulitis. Patient's white count was 10.3. H&H is 13.0 and 40.6. C reactive protein is 21.7. The patient is afebrile. Venous Doppler study was read as following 1. Posterior tibial and peroneal veins not visualized. 2. Otherwise patent left lower extremity veins. No evidence of deep venous thrombosis in visualized veins. 3. Left inguinal lymphadenopathy. 4. Leg edema. The patient was started on vancomycin. The patient is being admitted to observation status on the date of service of 01/23/2022 Review of Systems Review of Systems: see hpi All systems reviewed & are unremarkable except as noted in HPI and below Constitutional: Constitutional: Reports as per HPI and Reports no additional constitutional complaints Eyes: Eyes: Reports as per HPI and Reports no additional eye complaints ENT: Reports system reviewed and no additional complaints, except as documented and Reports Normal hearing present Cardiovascular: Cardiovascular: Reports no additional cardiovascular complaints Respiratory: Respiratory: Reports no additional respiratory complaints and Reports no additional respiratory complaints Gastrointestinal: Gastrointestinal: Reports as per HPI and Reports no additional gastrointestinal complaints Musculoskeletal: Musculoskeletal: Reports no additional musculoskeletal complaints Integumentary/Breasts: Skin/Breast: Reports system reviewed and no additional complaints, except as docu and Reports as per HPI Neurologic: Reports system reviewed and no additional complaints, except as documented, Reports as per HPI and Reports Normal hearing present Psychiatric: Psychiatric: Reports no additional psychiatric complaints and Reports as per HPI Endocrine: Endocrine: Reports no additional endocrine complaints Hematologic/Lymphatic: Hematologic/Lymphatic: Reports no additional hematologic/lymphatic complaints Allergic/Immunologic: Allergic/Immunologic: Reports no additional allergic/immunologic complaints PMFSH Past Medical History Medical History (Updated 01/24/22 @ 00:15 by Nicky Hardwick NP) Hepatitis C Opiate addiction Surgical History Surgical History H/O arthroscopic knee surgery Family History Family History Father Hypertension Social History Social History (Updated 01/24/22 @ 00:10 by Nicky Hardwick NP) Social History: The patient smoked 1 pack a cigarettes a day. He is single and does not have any children. 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 The patient has a history of IV drug use. 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 Code status full code Smoking packs per day: 1 Smoking cigarettes per day: 20.0 Years smoked: 30 Smoking pack-years: 30.00 Smoking status: Current some day smoker Tobacco type: cigarettes Alcohol intake: never Substance use: former Substance use type: opiates Other substance usage details: Fentanyl and other Has the Lack of Transportation Kept You From Medical Appointments or From Getting Medications?: No Within the Past 12 Months, Were You Worried Whether Your Food Would Run Out Before You
[2022-01-23 20:49] VITALS: PULSE 88; RESP 18; O2SAT 98
--- NOTE | 2022-01-23 21:36 | PC.NURSE ---
This patient, Victor Hugo Peacock, was admitted to Medical Room 341-01. Patient/family oriented to hospital policies and general routines including ID bracelet, bed and alarms, visiting hours, pain management, procedures, bathroom and other care routines, personal items, smoking policy, room service/diet, and visiting hours. Information on how to activate the Rapid Response Team has been discussed. Patient/Family are encouraged to report perceived risks to care and to ask questions if they do not understand what they are told or what they should do.
[2022-01-23 21:59] VITALS: BP 102/52; PULSE 92; RESP 20; TEMP 37.1; O2SAT 100
[2022-01-23 22:01] VITALS: BMI 41.3
[2022-01-24 05:47] VITALS: BP 146/89; PULSE 84; RESP 18; TEMP 36.6; O2SAT 95
[2022-01-24 06:15] LABS: Basophils Percent Auto 0.3 % (0.2-1.2); Eosinophils Percent Auto 0.4 % (0-4.4); Hematocrit 35.8 % (42.0-52.0); Hemoglobin 11.6 g/dL (14.0-18.0); Immature Granulocyte Absolute 0.04 K/mm3 (0.00-0.031); Immature Granulocyte Percent A 0.5 % (0-0.5); Lymphocytes Absolute Auto 0.98 K/mm3 (0.9-3.2); Lymphocytes Percent Auto 12.4 % (18.3-44.2); Mean Corpuscular HGB Conc 32.4 g/dl (32-36); Mean Corpuscular Hemoglobin 26.5 pg (26-34); Mean Corpuscular Volume 81.9 fl (80-100); Mean Platelet Volume 9.2 fl (7.4-10.4); Monocytes Absolute Auto 0.6 K/mm3 (0.1-0.6); Monocytes Percent Auto 8.1 % (2.6-8.5); Neutrophils Absolute Auto 6.2 K/mm3 (1.3-6.7); Neutrophils Percent Auto 78.3 % (45.5-73.1); Platelet Count Result 207 k/mm3 (150-375); Red Blood Count 4.37 M/mm3 (4.6-6.20); Red Cell Distribution Width 13.4 % (11.5-14.5); White Blood Count 7.9 K/mm3 (4.5-10.0)
[2022-01-24 06:41] LABS: Alanine Aminotransferase 32 U/L (6-50); Albumin Level 3.1 g/dL (3.5-5.1); Alkaline Phosphatase 77 U/L (38-126); Anion Gap 10 mmol/L (8-16); Aspartate Amino Transferase 30 U/L (17-59); Bilirubin,Total 0.3 mg/dL (0.2-1.3); Blood Urea Nitrogen 11 mg/dL (9-20); Calcium 7.8 mg/dL (8.4-10.2); Carbon Dioxide 26 mmol/L (22-30); Chloride 96 mmol/L (98-107); Estimated CRCL calculation 129 ml/min; Estimated Glomerular Filt Rate > 60; Glucose 141 mg/dL (65-110); Magnesium 1.7 mg/dL (1.6-2.3); Potassium 3.1 mmol/L (3.4-5.0); Sodium 132 mmol/L (137-145)
[2022-01-24 09:04] LABS: Barbiturate Screen Urine Negative (Negative); Benzodiazepines Screen Urine Negative (Negative)
[2022-01-24 09:09] LABS: Amphetamine Screen Urine Positive (Negative); Cannabinoid Screen Urine Negative (Negative); Cocaine Screen Urine Negative (Negative); Methadone Screen Urine Negative (Negative); Opiate Screen Urine Negative (Negative); Phencyclidine Screen Urine Negative (Negative)
[2022-01-24] MEDS: POTASSIUM CHLORIDE 20 MEQ PACKET (FOR LIQUID) 40 MEQ PO (09:29)
--- NOTE | 2022-01-24 13:27 | PM.IMPN ---
Progress Note: A&P Assessment and Plan (1) Cellulitis of left leg: Code(s): L03.116 - Cellulitis of left lower limb Status: Acute Assessment and Plan: -the patient was started on Zosyn and vancomycin. The patient has had a history of MRSA in the past. And he has a history of IV drug use. -blood cultures are pending -the patient has mild leukocytosis. -he is afebrile. He is nontoxic-appearing 01/24/2022 interval history: 46-year-old male with history of MRSA, please see drug abuse patient is positive for methamphetamine and cannabis, also has had multiple abscesses presented with a redness swelling of left lower extremity and diagnosed with cellulitis, lower extremity Doppler negative for DVT and patient is being treated with Zosyn and vancomycin, blood culture have drawn, patient has erythema is receding as well as swelling has improved, states the pain is better compared to when he arrived, will continue to monitor and further recommendation to follow (2) Hepatitis C: Code(s): B19.20 - Unspecified viral hepatitis C without hepatic coma Status: Acute Assessment and Plan: -the patient stated that he started the treatment but never completed it. A urine drug screen has been ordered. Subjective Date/time seen: 01/24/22 13:27 Swelling to left leg HPI-Narrative: This is a 46-year-old male patient who has a history of MRSA and has had multiple abscesses.? The patient has a history of IV drug use.? The patient came to the emergency room today because of left lower extremity pain swelling and redness over the last several days.? 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 The patient was rubbing? the areas with? steel wool trying to get them off.? The patient stated that he also used other chemicals to get the tore off.? The patient stated it was doing well and then he had stepped on a tack.? The patient's was sent here from urgent care due to the severity of the cellulitis.? Patient's white count was 10.3.? H&H is 13.0 and 40.6.? C reactive protein is 21.7.? The patient is afebrile.? Venous Doppler study was read as following 1. Posterior tibial and peroneal veins not visualized. 2. Otherwise patent left lower extremity veins. No evidence of deep venous thrombosis in visualized veins. 3. Left inguinal lymphadenopathy. 4. Leg edema. The patient was started on vancomycin. The patient is being admitted to observation status on the date of service of 01/23/2022 01/24/2022 interval history: 46-year-old male with history of MRSA, please see drug abuse patient is positive for methamphetamine and cannabis, also has had multiple abscesses presented with a redness swelling of left lower extremity and diagnosed with cellulitis, lower extremity Doppler negative for DVT and patient is being treated with Zosyn and vancomycin, blood culture have drawn, patient has erythema is receding as well as swelling has improved, states the pain is better compared to when he arrived, will continue to monitor and further recommendation to follow Review of Systems Review of Systems: All systems reviewed & are unremarkable except as noted in HPI and below Constitutional: Constitutional: Reports as per HPI and Reports no additional constitutional complaints Objective Data Vital Signs Vital Signs: Vital Signs - 24 hr 01/23/22 14:11 01/23/22 16:43 01/23/22 18:37 Temperature 97.7 F 98.9 F 98.4 F Pulse Rate 107 H 104 H 98 Respiratory Rate 18 18 18 Blood Pressure 121/86 132/72 143/77 H Pulse Oximetry 100 97 98 Oxygen Delivery Room Air 01/23/22 20:49 01/23/22 21:34 01/23/22 21:59 Temperature 98.8 F Pulse Rate 88 92 Respiratory Rate 18 20 Blood Pressure 102/52 L Pulse Oximetry 98 100 Oxygen Delivery Room Air 01/24/22 05:47 01/24/22 08:00 Temperature 97.8 F Pulse Rate 84 Respiratory Rate 18 Blood Pressure 146/89 H Pulse Oximetry 95 Oxygen Delivery Room Air In
[2022-01-24 14:00] VITALS: BP 122/72; PULSE 88; RESP 20; TEMP 36.7; O2SAT 99
[2022-01-24 19:57] VITALS: BP 117/63; PULSE 85; RESP 18; TEMP 37.1; O2SAT 99
[2022-01-24 20:00] VITALS: PULSE 85; RESP 18; O2SAT 99
[2022-01-24 20:02] VITALS: O2SAT 99
[2022-01-25 05:17] VITALS: BP 123/75; PULSE 74; RESP 20; TEMP 36.6; O2SAT 97
--- NOTE | 2022-01-25 08:30 | PM.DS ---
DS: Admitting Diagnosis Discharge Date 01/25/22 Admitting Diagnosis lower extremity cellulitis DS: Summary Hospital Course Reason for hospitalization: Swelling to left leg Narrative: This is a 46-year-old male patient who has a history of MRSA and has had multiple abscesses.? The patient has a history of IV drug use.? The patient came to the emergency room today because of left lower extremity pain swelling and redness over the last several days.? 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 The patient was rubbing? the areas with? steel wool trying to get them off.? The patient stated that he also used other chemicals to get the tore off.? The patient stated it was doing well and then he had stepped on a tack.? The patient's was sent here from urgent care due to the severity of the cellulitis.? Patient's white count was 10.3.? H&H is 13.0 and 40.6.? C reactive protein is 21.7.? The patient is afebrile.? Venous Doppler study was read as following 1. Posterior tibial and peroneal veins not visualized. 2. Otherwise patent left lower extremity veins. No evidence of deep venous thrombosis in visualized veins. 3. Left inguinal lymphadenopathy. 4. Leg edema. The patient was started on vancomycin. The patient is being admitted to observation status on the date of service of 01/23/2022 Hospital Course: ?46-year-old male with history of MRSA,? please see drug abuse patient is positive for methamphetamine and cannabis, also? has had multiple abscesses presented with a redness swelling of left lower extremity and diagnosed with cellulitis, lower extremity Doppler negative for DVT and patient is being treated with Zosyn and vancomycin,? blood culture have drawn,? patient has erythema is receding as well as swelling has improved, states the pain is better compared to when he arrived, will continue to monitor and further recommendation to follow Patient insisting to be discharged it is my is persistent and blood culture preliminary positive for Gram-positive cocci in cluster this can vegitate to heart, and may need IV abx, however patient does not want to be treated and left AMA Time Spent with Patient Time attestation: Total time spent providing and/or coordinating discharge services: Exam Narrative: left AMA DS: Data Data Completed and Pending Labs on day of discharge: Labs from last 24 hours 01/24/22 08:41 Urine Opiates Screen Negative Urine Methadone Screen Negative Ur Barbiturates Screen Negative Ur Phencyclidine Scrn Negative Ur Amphetamine Screen Positive A U Benzodiazepines Scrn Negative Urine Cocaine Screen Negative U Cannabinoids Screen Negative Preliminary micro results at discharge 01/23/22 17:31 Blood Culture - Preliminary Blood 01/23/22 17:31 Blood Culture - Preliminary Blood Discharge Plan Discharge Consulting providers: Amanda Garay Patient Disposition: Left Against Medical Advice Patient Instructions: How to Stop Smoking (DC) Discharge Medications: No Action No Home Medications Date of admission: 01/23/22 18:03 Primary Care Provider: PHYSICIAN NOT ON STAFF,NONSTAFF Admitting Provider: Marleni Carmen Attending physician on admission: Marleni Carmen Condition: Serious
== END 2022-01-25 08:00 | disposition left against medical advice (07) ==
LOC: ANHED 18:17 → ANH3MED 22:02
PROVIDERS: Emergency Medicine; Nurse Practitioner; Physician Assistant; Admitting Provider Hospitalist; Emergency Provider Emergency Medicine; Visit Provider Family Medicine
DX: L03.116 Cellulitis of left lower limb (principal); B95.8 Unspecified staphylococcus as the cause of diseases classified elsewhere; B19.20 Unspecified viral hepatitis C without hepatic coma; R59.0 Localized enlarged lymph nodes; F11.21 Opioid dependence, in remission; F15.90 Other stimulant use, unspecified, uncomplicated; F12.90 Cannabis use, unspecified, uncomplicated; F17.210 Nicotine dependence, cigarettes, uncomplicated; Z20.822 Contact with and (suspected) exposure to COVID-19; Z86.14 Personal history of Methicillin resistant Staphylococcus aureus infection; Z86.19 Personal history of other infectious and parasitic diseases
CPT/HCPCS: 36415; 80053; 80307; 83605; 83735; 84443; 85025; 86140; 87040; 87147; 87181; 87186; 93971; 96361; 96365; 96366; 96367; 99285; A9270; G0378; G0379; J2543; J3370; J7030; U0003; U0005

== ENCOUNTER 2022-11-02 08:15 | Emergency (ER) | payer OTHER, SELFPAY ==
[2022-11-02 08:24] VITALS: BP 143/87; PULSE 76; RESP 16; TEMP 35.6; O2SAT 98
--- NOTE | 2022-11-02 08:40 | ED.SKABFB ---
HPI - Skin/Abscess/Foreign Bdy General Chief complaint: Skin/Abscess/Foreign Body Stated complaint: skin rash Time Seen by Provider: 11/02/22 08:39 Source: patient and RN notes reviewed Mode of arrival: ambulatory Limitations: no limitations History of Present Illness HPI narrative: 47-year-old male presents with concern for rash in itchy eyes. Reports 2 days ago he was weed eating in an area that had poison darron and he then developed an itchy face, eyes, watery eyes. Reports for small amount time he felt itchy throat, nose. Reports he took bleach back today which helps with some of the itching. He otherwise denies [id number] intervention. Denies any wheezing or shortness of breath MD complaint: rash Related Data Allergies Allergy/AdvReac Type Severity Reaction Status Date / Time No Known Allergies Allergy Verified 11/02/22 08:40 Review of Systems Review of Systems: CONSTITUTIONAL: Denies malaise, chills, sweats, or fever. EYES: Reports red itchy eyes ENT: Denies rhinorrhea, congestion, swollen lips, swollen tongue CARDIOVASCULAR: Denies chest pain, palpitations, or edema. RESPIRATORY: Denies cough or dyspnea. GASTROINTESTINAL: Denies abdominal pain, nausea, vomiting SKIN: Reports itchy face MUSCULOSKELETAL: Denies joint pain or myalgia. NEUROLOGIC: Denies headache. All systems reviewed & are unremarkable except as noted in HPI and below PMFSH Past Medical History Medical History (Updated 11/02/22 @ 08:47 by Priscilla Martinez NP) Hepatitis C Opiate addiction Surgical History Surgical History H/O arthroscopic knee surgery Family History Family History Father Hypertension Social History Social History (Updated 01/24/22 @ 00:10 by Nicky Hardwick NP) Social History: The patient smoked 1 pack a cigarettes a day. He is single and does not have any children. 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 The patient has a history of IV drug use. He does not have a durable power bankruptcy attorney for healthcare. Code status full code Smoking packs per day: 1 Smoking cigarettes per day: 20.0 Years smoked: 30 Smoking pack-years: 30.00 Smoking status: Current some day smoker Tobacco type: cigarettes Alcohol intake: never Substance use: former Substance use type: opiates Other substance usage details: Fentanyl and other Lack of Transportation: No Lack of Food: Never True Current Housing: I Have Housing Concerned About Future Housing: Decline to Answer Difficulty Paying Gas/Electric Bills: Decline to Answer Difficulty Paying for Meds: Decline to Answer Currently Unemployed: Decline to Answer Education: Decline to Answer Difficulty w/ Childcare or Family Care: No Gender identity (if verbalized by the patient): Male Spiritual care concerns: No Comments At time of signature, agree with nursing past medical, surgical, social and family history. There is no relevant family history pertinent to the presenting complaint Exam Narrative: GENERAL: Well-appearing, well-nourished, and in no acute distress. HEAD: Normocephalic, atraumatic. EYES: PERRLA and EOMI. Sclera and conjunctivae mildly injected without drainage ENT: Mucous membranes moist. Oropharynx without edema, erythema or lesions. NECK: Supple. No lymphadenopathy CHEST: Clear to auscultation. No respiratory distress. HEART: Regular rate and rhythm. SKIN: Warm, dry. Mild red rash noted to the face NEURO: Alert and oriented x3. PSYCH: Normal mood and affect Course Course Emergency Course: Patient is aware of diagnosis, understands and agrees to treatment plan. Anticipatory guidance given. Patient agrees to follow-up as directed and is aware of reasons to seek care at the emergency department. Portions of this record may have been created with voice recognition software Level of Care: Express Car
== END 2022-11-02 09:01 | disposition home or self-care (01) ==
PROVIDERS: Emergency Provider Nurse Practitioner; PCP Family Medicine
DX: L25.9 Unspecified contact dermatitis, unspecified cause (principal); H57.89 Other specified disorders of eye and adnexa; F17.210 Nicotine dependence, cigarettes, uncomplicated
CPT/HCPCS: 99213; G0463

== ENCOUNTER 2022-11-03 02:47 | Emergency (ER) | payer OTHER, SELFPAY ==
[2022-11-03 02:51] VITALS: BP 149/91; PULSE 97; RESP 18; TEMP 36.7; O2SAT 97
--- NOTE | 2022-11-03 03:13 | ED.GENADULT ---
HPI - General Adult General Chief complaint: Eye Problems Stated complaint: poison darron in eye History of Present Illness HPI narrative: This is a 47-year-old male presenting ED with chief complaint of itchiness. Patient was weeding 3 days ago he believes he was exposed to some sort of poison darron or sumac. He has severe itching along his face eyes and nose. He has seen in urgent care earlier today and was given a 5 day course of prednisone. Patient is requesting eyedrops and a longer taper of steroids which she has received in the past with good effect. The patient denies visual changes or eye pain. No chest pain difficulty breathing abdominal pain or evidence of infection. Related Data Allergies Allergy/AdvReac Type Severity Reaction Status Date / Time No Known Allergies Allergy Verified 11/03/22 02:50 PMFSH Past Medical History Medical History Hepatitis C Opiate addiction Surgical History Surgical History H/O arthroscopic knee surgery Family History Family History Father Hypertension Social History Social History Social History: The patient smoked 1 pack a cigarettes a day. He is single and does not have any children. 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 The patient has a history of IV drug use. He does not have a durable power contracts attorney for healthcare. Code status full code Smoking packs per day: 1 Smoking cigarettes per day: 20.0 Years smoked: 30 Smoking pack-years: 30.00 Smoking status: Current some day smoker Tobacco type: cigarettes Alcohol intake: never Substance use: former Substance use type: opiates Other substance usage details: Fentanyl and other Lack of Transportation: No Lack of Food: Never True Current Housing: I Have Housing Concerned About Future Housing: Decline to Answer Difficulty Paying Gas/Electric Bills: Decline to Answer Difficulty Paying for Meds: Decline to Answer Currently Unemployed: Decline to Answer Education: Decline to Answer Difficulty w/ Childcare or Family Care: No Gender identity (if verbalized by the patient): Male Spiritual care concerns: No Exam Narrative: APPEARANCE: No apparent distress. Head: atraumatic. EYES: EOMI, No conjunctival injection NOSE: Atraumatic NECK: Trachea midline RESPIRATORY: No increased rate of breathing CARDIOVASCULAR: RRR, ABDOMINAL: Non-distended MUSCULOSKELETAl: No obvious deformities NEURO: Alert. Moving 4/4 extremities SKIN:: Mild erythema around the eyes and nose without blisters, induration or evidence of infection. PSYCHIATRIC: Normal affect Course Vital Signs Vital signs: Vital Signs Temperature 98.1 F 11/03/22 02:51 Pulse Rate 97 11/03/22 02:51 Respiratory Rate 18 11/03/22 02:51 Blood Pressure 149/91 H 11/03/22 02:51 Pulse Oximetry 97 11/03/22 02:51 Temperature 98.1 F 11/03/22 02:51 Pulse Rate 97 11/03/22 02:51 Respiratory Rate 18 11/03/22 02:51 Blood Pressure 149/91 H 11/03/22 02:51 Pulse Oximetry 97 11/03/22 02:51 Medical Decision Making MDM Narrative Medical decision making narrative: -Presentation: 47-year-old presenting with itchiness the face. 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
== END 2022-11-03 03:56 | disposition home or self-care (01) ==
PROVIDERS: Emergency Provider Emergency Medicine
DX: L23.7 Allergic contact dermatitis due to plants, except food (principal); Z86.19 Personal history of other infectious and parasitic diseases; F17.210 Nicotine dependence, cigarettes, uncomplicated
CPT/HCPCS: 99283

== ENCOUNTER 2023-08-29 10:34 | Emergency (ER) | payer OTHER, SELFPAY ==
[2023-08-29 10:42] VITALS: BP 129/73; PULSE 80; RESP 20; TEMP 36.6; O2SAT 97
--- NOTE | 2023-08-29 10:53 | ED.SKABFB ---
HPI - Skin/Abscess/Foreign Bdy General Chief complaint: Eye Problems Stated complaint: Wasp Sting on Eye Time Seen by Provider: 08/29/23 10:50 Source: patient and RN notes reviewed Mode of arrival: ambulatory Limitations: no limitations History of Present Illness HPI narrative: 48-year-old male presents concern for wasp sting to his left eye. He reports he got stung yesterday. Reports redness, swelling, stinging. Denies vision changes. Denies swollen lips, swollen tongue, trouble breathing. He took Viri LEARY complaint: insect bite/sting Related Data Home Medications Medication Instructions Recorded Confirmed glecaprevir 100 mg-pibrentasvir 40 1 tablet PO DAILY 08/29/23 08/29/23 mg tablet (Mavyret) omeprazole 40 mg capsule,delayed 40 mg PO DAILY 08/29/23 08/29/23 release varenicline 0.5 mg tablet 0.5 mg PO BID 08/29/23 08/29/23 Allergies Allergy/AdvReac Type Severity Reaction Status Date / Time No Known Allergies Allergy Verified 11/03/22 02:50 Review of Systems Review of Systems: CONSTITUTIONAL: Denies malaise, chills, sweats, or fever. EYES: Denies vision changes or discharge. ENT: Denies rhinorrhea, congestion, swollen lips, swollen tongue CARDIOVASCULAR: Denies chest pain, palpitations, or edema. RESPIRATORY: Denies cough or dyspnea. GASTROINTESTINAL: Denies abdominal pain, nausea, vomiting SKIN: Reports redness, swelling, itching to the right eye MUSCULOSKELETAL: Denies joint pain or myalgia. NEUROLOGIC: Denies headache. All systems reviewed & are unremarkable except as noted in HPI and below PMFSH Past Medical History Medical History Hepatitis C Opiate addiction Surgical History Surgical History H/O arthroscopic knee surgery Family History Family History Father Hypertension Social History Social History Social History: The patient smoked 1 pack a cigarettes a day. He is single and does not have any children. 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 The patient has a history of IV drug use. He does not have a durable power business attorney for healthcare. Code status full code Smoking packs per day: 1 Smoking cigarettes per day: 20.0 Years smoked: 30 Smoking pack-years: 30.00 Smoking status: Current some day smoker Tobacco type: cigarettes Alcohol intake: never Substance use: former Substance use type: opiates Other substance usage details: Fentanyl and other Lack of Transportation: No Lack of Food: Never True Current Housing: I Have Housing Concerned About Future Housing: Decline to Answer Difficulty Paying Gas/Electric Bills: Decline to Answer Difficulty Paying for Meds: Decline to Answer Currently Unemployed: Decline to Answer Education: Decline to Answer Difficulty w/ Childcare or Family Care: No Gender identity (if verbalized by the patient): Male Spiritual care concerns: No Comments At time of signature, agree with nursing past medical, surgical, social and family history. There is no relevant family history pertinent to the presenting complaint Exam Narrative: GENERAL: Well-appearing, well-nourished, and in no acute distress. HEAD: Normocephalic, atraumatic. EYES: PERRLA, conjunctivae and sclera clear bilaterally, and EOMI. Left upper and lower eyelid is erythematous, slightly edematous ENT: Mucous membranes moist. Oropharynx without edema, erythema or lesions. NECK: Supple. No lymphadenopathy CHEST: Clear to auscultation. No respiratory distress. HEART: Regular rate and rhythm. SKIN: Warm, dry. Patches of erythema and edema NEURO: Alert and oriented x3. PSYCH: Normal mood and affect Course Course Emergency Course: IM methylprednisolone given Patient is aware of diagnosis, understands and agrees to kaila
[2023-08-29] MEDS: methylPREDNISolone SOD SUCC 125 MG VIAL IM (11:06)
== END 2023-08-29 11:20 | disposition home or self-care (01) ==
PROVIDERS: Emergency Provider Nurse Practitioner; PCP Internal Medicine
DX: T63.461A Toxic effect of venom of wasps, accidental (unintentional), initial encounter (principal); F17.210 Nicotine dependence, cigarettes, uncomplicated
CPT/HCPCS: 96372; 99213; G0463; J2919

== ENCOUNTER 2024-06-14 05:07 | Emergency (ER) | payer OTHER, SELFPAY ==
--- NOTE | ~2024-06-14 | CT_ITS ---
CT facial bones w con Ordering provider: Austin Montoya III, DO History: . abscess . Comparison: None. Technique: Thin slice axial CT of the facial bones was performed without contrast. Coronal and sagit sofía reformatted images were also obtained. . Automated exposure control and iterative reconstruction technique were employed. The dose-length product was 717.93 mGy-cm. 75 mL Omnipaque 350 was given IV . FINDINGS: PARANASAL SINUSES: Mucosal thickening of both maxillary sinuses is noted. Otherwise, Well aerated. BONES: .Dental caries is seen in multiple teeth which include the left third and 6th in the upper ja w and right last tooth in the upper jaw. Dental care is is also seen in the lower jaw involving the t hird, fifth, 6 and seventh teeth on the left side and the second and fourth teeth on the right side. The largest cavity is seen in the upper jaw in the 3rd tooth on the left side which may be an abscess . Old fracture in the right nasal bone is noted. ORBITS AND SUPERFICIAL SOFT TISSUES: The optic globes and orbits are normal. Subcutaneous edema is se en anterior to the lower residual and the left side of the face and upper neck which is most likely i nflammatory. Small abscess formation is seen in the subcutaneous tissues seen anterior to the left th ird tooth otherwise, which measures 1.8 x 1 x 1.5 cm. Otherwise, The superficial soft tissues are nor mal. Left submandibular lymph nodes are seen with the largest measures 1.2 x 0.8 cm. Slightly enlarged lym ph nodes are also seen in the right submandibular area measures 1.1 cm. VISUALIZED MASTOIDS: Well aerated. LIMITED VISUALIZED BRAIN PARENCHYMA: Normal. IMPRESSION: Old right nasal bone fracture. An abscess is seen in the lower jaw subcutaneous tissue area adjacent to the tooth #3 with inflammato ry changes in the subcutaneous tissue. Multiple tooth caries are noted in both upper and lower jaws. Enlarged submandibular lymph nodes. Reviewed, dictated and finalized at location A. IMPRESSION: Old right nasal bone fracture. An abscess is seen in the lower jaw subcutaneous tissue area adjacent to the to oth #3 with inflammatory changes in the subcutaneous tissue. Multiple tooth car ies are noted in both upper and lower jaws. Enlarged submandibular lymph nodes.
[2024-06-14 05:08] VITALS: BP 175/103; PULSE 99; RESP 17; TEMP 36.6; O2SAT 99
--- OUTSIDE RECORDS SUMMARY | 2024-06-14 05:09 | XMS_ITS | Clinical Summary ---
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 Role Phone Unavailable Primary Care Provider Unavailabl e Allergies No known active allergies Medications No known medications Encounters Date Type Department Care Team Description 06/09/2024 External Device Data [facility] Provider, Abstract 05/31/2024 External Device Data [facility] Provider, Abstract 05/18/2024 External Device Data [facility] Provider, Abstract 04/27/2024 External Device Data [facility] Provider, Abstract 04/20/2024 External Device Data [facility] Provider, Abstract 04/14/2024 External Device Data [facility] Provider, Abstract 04/14/2024 External Device Data [facility] Provider, Abstract 04/07/2024 External Device Data [facility] Provider, Abstract from Last 3 Months Social History Tobacco Use Types Packs/Day Years Used Date Smoking Tobacco: Every Day Cigarettes Smokeless Tobacco: Never Tobacco Cessation:Ready to Q uit: Not Asked; Counseling Given: Not Answered Alcohol Use Standard Drinks/Week Comments Never 0 (1 standard drink = 0.6 oz pur e alcohol) Feeling Safe Answer Date Recorded Are you in a relationship wi th someone who hurts you emotionally and/or physically? No 07/17/2023 Sex and Gender Information Value Date Recorded Sex Assigned at Not on file Legal Sex Male 9:51 AM CDT Gender Identity Not on file Sexual Orientation Not on file Last Filed Vital Signs Vital Sign Reading Time Taken Comments Blood Pressure 101/84 07/17/2023 11:15 AM CDT Pulse 86 07/17/2023 11:15 AM CDT Temperature 36.9 C (98.5 F) 07/17/2023 9:56 AM CDT Respiratory Rate 14 07/17/2023 11:15 AM CDT Oxygen Saturation 99% 07/17/2023 11:15 AM CDT Inhaled Oxygen Concentration - - Weight 104.3 kg (230 lb) 07/17/2023 9:55 AM CDT Height 166.4 cm (5' 5.5) 07/17/2023 9:55 AM CDT Body Mass Index 37.69 07/17/2023 9:55 AM CDT Plan of Treatment Health Maintenance Due Date Last Done Comments Pre-Diabetes and Diabetes Screening 1973 DTAP/TDAP/TD VACCINES (1 - Tdap) 1992 HEPATITIS B VACCINES (1 of 3 - 19+ 3-dose series) 06/23 COLORECTAL SCREENING 2018 Colorectal Cancer Screening 2018 FIT-DNA Q 3 years 2018 FIT/FOBT Q 1 year 2018 Flex Sig/CT Colonography Q 5 years 2018 ZOSTER VACCINE (1 of 2) 07/14/2023 INFLUENZA VACCINE (#1) 2023 Insurance [facility] MEDICAID
--- OUTSIDE RECORDS SUMMARY | 2024-06-14 05:09 | XMS_ITS | Clinical Summary ---
Author Organization [facility]6 Address [address] [place] [address] Care Team Providers Care Hot Braider Name Role Phone Marychuy Lambert WINE MANAGER-SAND TECHNICIAN Primary Care Provider + Source Comments [facility],non-owned Affiliates and Associated Physician Practices is amultiple site organization consisting of ambulatory clinics and hospital sitesin [place], [place], [place] and [place]. This disclosure is being madepursuant to the Care Everywhere program and may not contain all information available regarding this patient. Last updated 17.[facility] Allergies No known active allergies Medications * Be aware that medications may not be up to date on this document. Alwaysverify current medications with the patient. Medication Sig Dispensed Refills Start Date End Date Status AMINO ACIDS PO Take by mouth once daily Active Active Problems Problem Noted Date Diagnosed Date Metabolic dysfunction-associated steatohepatitis (MASH) 01/12/2024 Cigarette nicotine dependence without complicati on 11/10/2023 Class 2 severe obesity with serious comorbidity and body mass index (BMI) of 39.0 to 39.9 in adult 11/10/2023 Osteoarthritis of right knee 11/10/2023 Chronic hepatitis C without hepatic coma 024 Overview (01/12/2024): 07/25/23 Fibroscan CAP 312, LSM 5.9 kPa completed 8 weeks of mavyret 10/03/23 01/12/2024 Fibroscan CAP 284 LSM 4.6 kPa Family History Medical History Relation Name Comments Arthritis - Osteo Father Dementia Father High Blood Pressure Mother Relation Name Status Comments Father Alive Mother Alive Social History Tobacco Use Types Packs/Day Years Used Date Smoking Tobacco: Every Day Cigarettes Smokeless Tobacco: Never Tobacco Cessation:Ready to Q uit: Not Asked; Counseling Given: Not Answered Alcohol Use Standard Drinks/Week Comments Not Currently 0 (1 standard drink = 0.6 oz pur e alcohol) Sex and Gender Information Value Date Recorded Sex Assigned at Not on file Gender Identity Not on file Sexual Orientation Not on file Last Filed Vital Signs Vital Sign Reading Time Taken Comments Blood Pressure 136/89 01/12/2024 8:48 AM CDT Pulse 80 01/12/2024 8:48 AM CDT Temperature 36.8 C (98.3 F) 01/12/2024 8:48 AM CDT Respiratory Rate 18 01/12/2024 8:48 AM CDT Oxygen Saturation 96% 01/12/2024 8:48 AM CDT Inhaled Oxygen Concentration - - Weight 112 kg (247 lb) 01/12/2024 8:48 AM CDT Height 165.1 cm (5' 5) 01/12/2024 8:48 AM CDT Body Mass Index 41.1 01/12/2024 8:48 AM CDT Plan of Treatment Upcoming Encounters Date Type Department Care Team (Late st Contact Info) Description 07/12/2024 9:30 AM CDT Procedure visit [facility] [address] [place] [address] [phone] 07/12/2024 10:00 AM CDT Office Visit [facility] [address] [place] [address] [phone] Dolores Marrero M, WINE MANAGER-SAND TECHNICIAN [address] [place] [address] [place] [address] Health Maintenance Due Date Last Done Comments COLOGUARD (AGES 45-75) - COLON CA SCREENING 1973 COLON MONITORING 1973 COLONOSCOPY - COLON CA SCREENING 1973 CT COLONOGRAPHY - COLON CA SCREENING 1973 Colorectal Cancer Screening 1973 FIT - COLON CA SCREENING 1973 FLEX SIG - COLON CA SCREENING 1973 LIPID TESTING 1973 DTAP/TDAP/TD VACCINES (1 - Tdap) 1992 HEPATITIS B VACCINE (1 of 3 - 19+ 3-dose series) 1992 PNEUMOCOCCAL VACCINE 50+ (1 of 2 - PCV) 1992 ZOSTER VACCINE (1 of 2) 07/14/2023 COVID-19 VACCINE (2 - season) 2023 10/02/2020 INFLUENZA VACCINE (#1) 2023 DEPRESSION SCREENING 03/24/2024 SCREENING FOR DIABETES 10/05/2026 10/06/2023, 2023 HIV SCREENING Completed 07/25/2023 HEPATITIS C SCREENING Completed 01/12/2024 , 01/12/2024, 01/12/2024, Additional history exists HIB VACCINE Aged Out No longer eligi ble based on patient's age to complete this topic HPV VACCINE Aged Out No longer eligi ble based on patient's age to complete this topic MENINGOCOCCAL (Group B) VACCINE SHARED DECISION-MAKING Aged Out No longer eligible based on patient's age to complete this topic MENINGOCOCCAL GROUPS A/C/Y/W VACCINE Aged Out No longer eligible based on patient's age to complete this topic Goals Goal Patient Goal Type Associated Problems Recent Progress Patient-Stated? Author Medication Management General On track( 024 9:13 AM CDT) Diandra Donovan, RN Note: Expected end date: Ongoing Interventions: Take all medications as prescribed Let your doctor know right away about any changes in your medications Make sure to request a refill of your medication at least one week prior to your last dose Procedures Procedure Name Priority Date/Time Associated Diagnosis Comments COMPREHENSIVE METABOLIC PANEL Routine 10/06/2023 10:38 AM CDT Chronic hepatitis C without hepatic coma HEPATITIS C RNA QUANTITATIVE Routine 10/06/2023 10:38 AM CDT Chronic hepatitis C without hepatic coma HIV-1 HIV-2 ANTIBODY + HIV P24 AG PANEL Routine 07/25/2023 1:13 PM CDT Chronic hepatitis C without hepatic coma from Last 3 Months or Most Recently Relevant to Health Maintenance Results * HEPATITIS C RNA QUANTITATIVE (10/06/2023 10:38 AM CDT) Hepatitis C RNA PCR, Interp Not detected Not detected 10/07/2023 5:24 AM CDT [facility] Blood BLOOD SPECIMEN / Unknown Lab Venipuncture / Unknown 10/06/2023 10:38 AM CDT 10/06/2023 11:03 AM CDT Narrative [facility] - 10/07/2023 5:24 AM CDT The Hepatitis C viral (HCV) RNA analysis utilized a serum sample, real-time reverse fundraising coordinator PCR, and is reported as Not Detected, Detected (<12 IU/mL), Quantity (IU/mL) or >30,000,000 IU/mL. The limit of quantitation of the assay is 12 IU/mL (100% of samples with this HCV RNA level were detected). The linear range is from 12 IU/mL to 30,000,000 IU/mL. Values less than 12 IU/mL are reported as Detected (<12 IU/mL). Values greater than 30,000,000 IU/mL are reported as >30,000,000 IU/mL. The detection/quantitation of HCV RNA in serum is based on the isolation of HCV RNA with reverse fundraising coordinator of genomic HCV RNA followed by real-time PCR in the presence of an unrelated RNA internal control. The internal control ensures that RNA is isolated, and that no general significant inhibitors of the RT-PCR process are present. The analysis was performed using a U.S. FDA approved test methodology. Dolores Marrero WINE MANAGER-SAND TECHNICIAN LAB - CHEMIS TRY ORDERABLES [facility] [address] [place] [address], [facility] [phone] * (ABNORMAL) COMPREHENSIVE METABOLIC PANEL (10/06/2023 10:38 AM CDT) BUN 24 7 - 26 mg/dL 10/06/2023 12:09 PM [facility] Creatinine 1.00 0.71 - 1.16 mg/dL 10/06/2023 12:09 PM [facility] Sodium 140 136 - 145 mmol/L 10/06/2023 12:09 PM [facility] Potassium 4.2 3.5 - 4.5 mmol/L 10/06/2023 12:09 PM [facility] Chloride 107 98 - 107 mmol/L 10/06/2023 12:09 PM [facility] CO2 21(L) 22 - 29 mmol/L 10/06/2023 12:09 PM [facility] Glucose 99 70 - 115 mg/dL 10/06/2023 12:09 PM [facility] Calcium 9.7 8.4 - 10.2 mg/dL 10/06/2023 12:09 PM [facility] Protein Total 7.6 6.0 - 8.3 g/dL 10/06/2023 12:09 PM [facility] Albumin 4.1 3.4 - 5.0 g/dL 10/06/2023 12:09 PM [facility] Bilirubin Total 0.3 0.2 - 1.2 mg/dL 10/06/2023 12:09 PM [facility] Alkaline Phosphatase 93 40 - 150 U/L 10/06/2023 12:09 PM [facility] ALT 12 5 - 55 U/L 10/06/2023 12:09 PM [facility] AST 14 5 - 34 U/L 10/06/2023 12:09 PM [facility] Anion Gap 12 6 - 16 10/06/2023 12:09 PM [facility] BUN/Creatinine Ratio 24(H) 7 - 23 10/06/2023 12:09 PM [facility] Osmolality Calculated 294 275 - 295 mOsm/kg 10/06/2023 12:09 PM [facility] Albumin/Globulin Ratio 1.2 1.1 - 2.3 10/06/2023 12:09 PM [facility] eGFR by CKD-EPI >90 >=90 mL/min/1.7 3 m2 10/06/2023 12:09 PM [facility] Blood BLOOD SPECIMEN / Unknown Lab Venipuncture / Unknown 10/06/2023 10:38 AM T 10/06/2023 11:30 AM [facility] [place] Dolores Marrero WINE MANAGER-SAND TECHNICIAN LAB - CHEMIS TRY ORDERABLES [facility] [address] [place] [id number], [facility] [phone] * HIV-1 HIV-2 ANTIBODY + HIV P24 AG PANEL (07/25/2023 1:13 PM CDT) HIV Antigen/Antibod y 1 & 2 Non-reacti ve Non-react siobhan 07/25/2023 3:36 PM CDT [facility] Comment:No Laboratory eviden ce of HIV infection. Blood BLOOD SPECIMEN / Unknown Lab Venipuncture / Unknown 07/25/2023 1:13 PM CDT 07/25/2023 1:36 PM CDT Dolores Marrero APRN-SAND TECHNICIAN LAB - CHEMIS TRY ORDERABLES [facility] [address] [place] [address], [facility] [phone] from Last 3 Months or Most Recently Relevant to Health Maintenance Care Teams Hot Braider Relationship Specialty Start Date End Date Marychuy Lambert APRN-SAND TECHNICIAN [facility] , [address] [place] [address] PCP - General 01/12/24
--- OUTSIDE RECORDS SUMMARY | 2024-06-14 05:09 | XMS_ITS | Patient Health Record ---
Author Organization [facility] Address [address] [place] [address] Care Team Providers Care Applied Psychology Professor Name Role Phone Pamela Barraza Primary Care Provider Reason For Referral No Information Immunizations Vaccine Route Administration Date Status Comme nts PPD SC Subcutaneous 10/06/2018 Administered Tolerat ed well Social History Tobacco Use: Social History Observation Description Date Details (start date - stop date) Current Smoker NA - NA Tobacco Use/Smoking Question Answer Notes Are you a current smoker How often do you smoke cigarettes? every day How many cigarettes a day do you smoke? 6-10 How soon after you wake up do you smoke your fir st cigarette? 31-60 minutes Alcohol Screen (Audit-C) Question Answer Notes Did you have a drink containing alcohol in the p ast year? 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) Active confirmed Problem Sciatica (01597471) Low back pain with right-sided sciatica, unspecified back pain laterality, unspecified chronicity (M54.41) Active confirmed Plan Of Treatment Pending Test Test Name Order Date BLOOD COUNT WITH DIFF * 10/06/2018 COMPREHENSIVE METABOLIC PANEL (CMP) * ESTIMATED GFR * 10/06/2018 HEP C ANTIBODY * 10/06/2018 HCV QUANT REAL TIME PCR * 10/06/2018 LIPID PANEL * 10/06/2018 Insurance Providers Payer Name Payer Address Payer Phone Subscriber Number Group Number Insured Name Patient Relationship to Insured Coverage Start Date Coverage End Date KRISHNA Francisco [address] [place] [phone] [id number] Victor Hugo Peacock Self - patient is the insured Medical (General) History Medical History History ICD Code MRSA in leg Hep [id number] Surgical History Surgery Date(Month/Year) surgery to leg for MRSA 2013? [facility]
--- OUTSIDE RECORDS SUMMARY | 2024-06-14 05:09 | XMS_ITS | Continuity of Care Document ---
Author Organization [facility] Address [address] [place] [address] [place] [address] Phone Care Team Providers Care Jewelry Mold Maker Name Role Phone Wally Thorpe MD Unavailable Unavailable Allergies, Adverse Reactions, Alerts Substance Reaction Status Criticality No Known Allergies Active No Inform ation Medications Medication Instructions Dosage Effective Dates (start - stop) Status Comments Vicoprofen 7.5 mg-200 mg tablet take 1 tablet by oral route every 6 hours as needed 1 tablet - Active PRN for pain, avoid driving or operate machines Procedures Procedure Date PREV VISIT, NEW, AGE 40-64 Advance Directives Directive Yes / No Effective Date File Name No Information Encounters Encounter Description Practice Location Reason(s) For Visit Diagnoses Date Provider Providers Copied on Encounter [facility], [address] [place] [place], [place], [id number], tel:[phone] [facility] No Information [address] Maur[address] Lo. [address], [id number] , [place]. tel:[phone] PREV VISIT, NEW, AGE 40-64 [facility], [address] [place], [place], [id number], [place] tel:[phone] [facility] Medicine Physical (chief complaint) Dietary surveillance and counselingRoutine Medical ExamRoutine Medical Exam 4 Maur[address] Lo. [address] [employer] [address] [facility] [place], [place], [id number] , [place]. tel:[phone] Family History Family Member Type Diagnosis Age At Onset Father Problem (finding) Hypertension Brother Problem (finding) Alive and well Mother Problem (finding) Alive and well Father Problem (finding) Obesity Payers Payer name Insurance type Covered green party ID Authoriza tion(s) No Information Social History Type Description Quantity Date Captured Comments Sex Male Smoking Status No Information Chief Complaint And Reason For Visit No Information Plan Of Treatment Date Type Action Status Referral Ordered: Ortho Surg ordered Referral Ordered: FOOT XRAY, TWO VIEW Bilateral ordered Referral Ordered: Referral: Ortho Surg. ordered History Of Present Illness Encounter Date Complaint History Of Prese nt Illness No Information Instructions Date Instruction Additional Infor mation Dietary counseling Related to Di etary surveillance counseling Decrease caloric intake Related to Dietary surveillance counseling Assessments Type Assessment Date No Information
--- OUTSIDE RECORDS SUMMARY | 2024-06-14 05:09 | XMS_ITS | Clinical Summary ---
Author Organization [facility] Address [facility] [place] [address] Care Team Providers Care Glass Lathe Operator Name Role Phone Marychuy Lambert NP Primary Care Provider [phone] Allergies No known active allergies Medications nicotine polacrilex (NICORETTE) 4 mg gum Take 1 each (4 mg total) by mouth as needed 07/23/2023 Active Mavyret 100-40 mg tablet per tablet Take 3 tablets by mouth daily 07/29/2023 Active baclofen (LIORESAL) 10 mg tablet Take 1 tablet (10 mg total) by mouth daily 07/23/2023 Active cetirizine (ZyrTEC) 10 mg tablet Take 1 tablet (10 mg total) by mouth daily 08/31/2018 Active ibuprofen 200 mg tab/cap Take 2 tablet/capsu le (400 mg total) by mouth every 6 (six) hours as needed for pain Active naproxen sodium (Aleve) 220 mg capsule Take 440 mg by mouth every 12 (twelve) hours Active Active Problems Problem Noted Date Diagnosed Date Metabolic dysfunction-associated steatohepatitis (MASH) 01/12/2024 Primary osteoarthritis of right knee 12/10/2023 Class 2 severe obesity with serious comorbidity and body mass index (BMI) of 39.0 to 39.9 in adult 11/10/2023 Assessment & Plan (11/10/2023 5:25 PM CDT): HPI: Condition is not at/near goal. Goal BMI <30. A&P: Healthy, high-protein, lower carbohydrate, lower fat lifestyle and exercise for 150min/week recommended. Recommend and encourage CHIP weight loss program with me - handout given and patient to call and schedule. Cigarette nicotine dependence without complicati on 11/10/2023 Assessment & Plan (11/10/2023 5:25 PM CDT): HPI: Condition is not at/near goal. Has trialed nicotine and Chantix in the past without success. Smoking 15-20 cigarettes daily. A&P: Encouraged and recommend smoking cessation. Tricompartment osteoarthritis of right knee 10/22 Assessment & Plan (11/10/2023 5:27 PM CDT): HPI: Condition is not at/near goal. Imaging from 07/17/2023 shows moderate tricompartmental right knee joint osteoarthritis. A&P: Discussed/ordered labs. Recommend and encourage weight loss - discuss CHIP weight loss program with me. Also recommend and encourage physical therapy. We will place referral for orthopedics. Chronic hepatitis C without hepatic coma 024 Overview (11/10/2023): 07/25/23 Fibroscan CAP 312, LSM 5.9 kPa completed 8 weeks of mavyret 10/03/23 Encounters Date Type Department Care Team Description 04/25/2024 2:01 PM TIRE WORKER - 04/25/2024 3:38 PM TIRE WORKER Emergency [place] [phone] Chapin Sprague MD Supraumbilical hernia (Primary Dx) Discharge Disposition: Discharge to home or self care from Last 3 Months Surgical History Surgery Date Site/Laterality Comments KNEE SURGERY Left Medical History Medical History Date Comments Morbid obesity (HCC) History of hepatitis C finished treatment History of MRSA infection left k nee less than 10 years ago Wears reading glasses Tinnitus Arthritis Sciatica History of gout Anxiety Depression Chipped teeth and missing teeth Family History Medical History Relation Name Comments Diabetes Brother Hypertension Brother Diabetes Father Hypertension Father Relation Name Status Comments Brother Father Social History Tobacco Use Types Packs/Day Years Used Date Smoking Tobacco: Every Day Cigarettes Passive Smoke Exposure: Current Smokeless Tobacco: Never Tobacco Cessation:Ready to Q uit: No; Counseling Given: Yes Comments:Smoking 5-7 cigarettes a day Alcohol Use Standard Drinks/Week Comments Not Currently 0 (1 standard drink = 0.6 oz pur e alcohol) AUDIT-C Answer Date Recorded Q1: How often do you have a drink containing alcohol? Never 01/22/2024 Q2: How many drinks containi ng alcohol do you have on a typical day when you are drinking? Patient does not drink Q3: How often do you have si x or more drinks on one occasion? Never 01/22/2024 PHQ-2 Answer Date Recorded PHQ-2 Total Score (If total score is 3 or more points, staff should administer the PHQ-9) 0 11/10/2023 Personal Safety Answer Date Recorded Have you ever been in or are you currently in a harmful physical or emotional relationship or is someone making you feel afraid or unsafe? Denies 04/25/2024 Sex and Gender Information Value Date Recorded Sex Assigned at Not on file Legal Sex Male 9:06 AM TIRE WORKER Gender Identity Not on file Sexual Orientation Not on file Obstetrics History Last Filed Vital Signs Vital Sign Reading Time Taken Comments Blood Pressure 154/89 04/25/2024 3:30 PM TIRE WORKER Pulse 72 04/25/2024 3:30 PM TIRE WORKER Temperature 36.6 C (97.8 F) 04/25/2024 10:03 AM TIRE WORKER Respiratory Rate 18 04/25/2024 3:30 PM TIRE WORKER Oxygen Saturation 96% 04/25/2024 3:30 PM TIRE WORKER Inhaled Oxygen Concentration - - Weight 136.1 kg (300 lb) 04/25/2024 10:03 AM TIRE WORKER Height 165.1 cm (5' 5) 04/25/2024 10:03 AM TIRE WORKER Body Mass Index 49.92 04/25/2024 10:03 AM TIRE WORKER Plan of Treatment Health Maintenance Due Date Last Done Comments Colon Cancer Screening-Colonoscopy 1973 Prostate Cancer Screening-PSA 1973 Hepatitis B Screening 07/14/1991 Regular Well Visit/Exam 18-64 07/14/1991 Pneumococcal vaccine <65 (1 of 2 - PCV) 1992 Zoster Vaccine (1 of 2) 07/14/2023 Covid-19 Vaccine (2 - 2023- season) 11/23/202302/2021 Influenza Vaccine (#1) 2023 Depression Screening 11/09/2024 11/10/2023 DTaP/Tdap/Td Vaccine (2 - Tdap) 01/26/2027 7 Hepatitis C Screening Completed 07/25/2023 , 01/27/2017, 01/26/2017 Procedures Procedure Name Priority Date/Time Associated Diagnosis Comments SEPSIS LACTATE WITH REFLEX STAT 04/25/2024 1:[address] ABDOMEN PELVIS W CONTRAST ED 04/25/2024 11:46 AM TIRE WORKER URINALYSIS AND REFLEX TO MICROSCOPIC AND CULTURE STAT 04/25/2024 10:39 AM TIRE WORKER EGFR STAT 04/25/2024 10:35 AM TIRE WORKER DIFFERENTIAL AUTO STAT 04/25/2024 10: 35 AM TIRE WORKER LIPASE STAT 04/25/2024 10:35 AM TIRE WORKER COMPREHENSIVE METABOLIC PANEL STAT 04/25/2024 10:35 AM TIRE WORKER CBC WITH AUTO DIFFERENTIAL STAT 04/25/2024 10:35 AM TIRE WORKER HEPATITIS PANEL, ACUTE Routine 7 11:07 AM TIRE WORKER from Last 3 Months or Most Recently Relevant to Health Maintenance Results * Sepsis Lactate w/ Reflex (04/25/2024 1:45 PM TIRE WORKER) Sepsis Lactate 0.9 0.7 - 2.0 mmol/L Blood 04/25/2024 1:45 PM TIRE WORKER 04/25/2024 1:49 PM TIRE WORKER us Candace [facility] LAB BLOOD ORDERABLES Final Resu lt [facility] [address] [facility] Department [place] [address] * CT Abdomen Pelvis W Contrast (04/25/2024 11:46 AM TIRE WORKER) Anatomical Region Laterality Modality Body N/A Computed Tomogra phy 04/25/2024 11:5 0 AM TIRE WORKER Narrative 04/25/2024 12:06 PM TIRE WORKER EXAM DESCRIPTION: CT ABDOMEN PELVIS W CONTRAST REASON FOR STUDY: Abdominal pain, acute, nonlocalized Pt. To ED with c/o abdominal cramping and bloating. Pt. Repots hernia or bulge in RUQ. States he has been pushing it in for some time. States he has also noticed blood coming from belly button for a while. Denies NVD. Reports last BM this a.m. No known abdominal surgeries/conditions at this time TECHNIQUE: CT scan of the abdomen and pelvis performed with intravenous and without oral contrast using helical scanning technique with dynamic intravenous contrast injection. Reconstructed coronal and sagittal MPR images reviewed. All images stored on PACS. Automated exposure control was used as a dose optimization technique for this examination. CONTRAST TYPE/DOSE: 92mL of IOVERSOL 350 MG IODINE/ML INTRAVENOUS SYRINGE injected via intravenous COMPARISON: None FINDINGS: LOWER CHEST: No significant pulmonary abnormalities. No effusion. LIVER: Normal size. No identified cystic or solid masses. GALLBLADDER: Unremarkable. BILE DUCTS: No intrahepatic or extrahepatic ductal dilatation. SPLEEN: Normal size. No focal lesions. PANCREAS: No identified cystic or solid masses. No significant calcifications. No adjacent inflammation or peripancreatic fluid collections. Pancreatic duct not dilated. ADRENALS: Normal. KIDNEYS/URINARY TRACT: No identified significant cystic or solid masses. No visualized stones. No hydronephrosis or hydroureter. Symmetric enhancement. Urinary bladder is unremarkable. GI: No dilated bowel loops. No obvious wall thickening. Normal appendix. No significant diverticular disease. PERITONEUM: No ascites or free air. RETROPERITONEUM: No mass or adenopathy. REPRODUCTIVE: No significant abnormality. VASCULATURE: No abdominal aortic aneurysm. MUSCULOSKELETAL: No significant abnormality. OTHER: There is a supraumbilical hernia containing fat which demonstrates strandy change. This may be consistent with ischemia or inflammation. There may be a sac within the sac. There are bilateral inguinal hernias containing fat. IMPRESSION: Supraumbilical hernia containing fat with strandy change. This may be consistent with ischemia or inflammation. There may be a sac within the sac. Bilateral inguinal hernias containing fat. THIS IS AN ELECTRONICALLY VERIFIED FINAL REPORT 04/25/2024 12:06 PM - Electronically signed by Nery Stevens M.D. LL T: Report ID: [id number] Reading Location: [id number] Procedure Note Nery Stevens MD - 04/25/2024 EXAM DESCRIPTION: CT ABDOMEN PELVIS W CONTRAST REASON FOR STUDY: Abdominal pain, acute, nonlocalized Pt. To ED with c/o abdominal cramping and bloating. Pt. Repots hernia or bulge in RUQ. States he has been pushing it in for some time. States hehas also noticed blood coming from belly button for a while. Denies NVD.Reports last BM this a.m. No known abdominal surgeries/conditions at this time TECHNIQUE: CT scan of the abdomen and pelvis performed with intravenousand without oral contrast using helical scanning technique with dynamic intravenous contrast injection. Reconstructed coronal and sagittal MPRimages reviewed. All images stored on PACS. Automated exposure control was usedas a dose optimization technique for this examination. CONTRAST TYPE/DOSE: 92mL of IOVERSOL 350 MG IODINE/ML INTRAVENOUSSYRINGE injected via intravenous COMPARISON: None FINDINGS: LOWER CHEST: No significant pulmonary abnormalities. Noeffusion. LIVER: Normal size. No identified cystic or solid masses. GALLBLADDER: Unremarkable. BILE DUCTS: No intrahepatic or extrahepatic ductal dilatation. SPLEEN: Normal size. No focal lesions. PANCREAS: No identified cystic or solid masses. No significant calcifications. No adjacent inflammation or peripancreatic fluidcollections. Pancreatic duct not dilated. ADRENALS: Normal. KIDNEYS/URINARY TRACT: No identified significant cystic or solid masses.No visualized stones. No hydronephrosis or hydroureter. Symmetricenhancement. Urinary bladder is unremarkable. GI: No dilated bowel loops. No obvious wall thickening. Normalappendix. No significant diverticular disease. PERITONEUM: No ascites or free air. RETROPERITONEUM: No mass or adenopathy. REPRODUCTIVE: No significant abnormality. VASCULATURE: No abdominal aortic aneurysm. MUSCULOSKELETAL: No significant abnormality. OTHER: There is a supraumbilical hernia containing fat whichdemonstrates strandy change. This may be consistent with ischemia or inflammation.There may be a sac within the sac. There are bilateral inguinal herniascontaining fat. IMPRESSION: Supraumbilical hernia containing fat with strandy change. This may be consistent with ischemia or inflammation. There may be a sac within thesac. Bilateral inguinal hernias containing fat. THIS IS AN ELECTRONICALLY VERIFIED FINAL REPORT 04/25/2024 12:06 PM - Electronically signed by Nery Stevens M.D. T: Report ID: [id number] Reading Location: [place] [address] PROCEDURES Final Result * Urinalysis reflex to microscopic and culture Urine (04/25/2024 10:39 AM TIRE WORKER) Color, ur Yellow Yellow Clarity, ur Clear Clear [facility] Specific gravity, ur 1.021 1.003 - 1.030 [facility] pH, urine 6.0 [facility] Comment: Interpretive Data U rine pH is affected by diet, medications, systemic acid-base disturbances, and renal tubular function. pH may affect urinary stone formation. For example, urine pH below 6.0 may help reduce the tendency for calcium phosphate stones and pH greater than 6.0 may reduce the tendency for uric acid stone formation. Source: [facility] Current Interpretive Data was last revised on 2017 Protein, ur ql Negative Negative [facility] Glucose, ur ql Negative Negative [facility] Ketones, ur Negative Negative [facility] Bilirubin, ur Negative Negative [facility] Blood, ur Negative Negative [facility] Urobilinogen, ur <2.0 <2.0 mg/dL [facility] Nitrite, ur Negative Negative [facility] Leukocyte esterase, ur Negative Negative [facility] UA reflex comment Reflex conditions for microscopic UA and culture not met. [facility] Urine 04/25/2024 10:3 9 AM TIRE WORKER 04/25/2024 10:42 AM TIRE WORKER Yusef Bennett DO LAB MICROBIOLOGY - GENERAL ORDERABLES Final Result [facility] [address] [facility] Department [place] [address] * eGFR (04/25/2024 10:35 AM TIRE WORKER) eGFR >90 >=60 mL/min/1. 73 m2 Comment: Interpretive Data Reference Interval Normal >/= 90 mL/min/1.73m2 Mildly decreased* 60 - 89 mL/min/1.73m2 Mildly to moderately decreased 45 - 59 mL/min/1.73m2 Moderately to severely decreased 30 - 44 mL/min/1.73m2 Severely decreased 15 - 29 mL/min/1.73m2 Kidney Failure < 15 mL/min/1.73m2 *Relative to young adult level Estimated glomerular filtration rate is determined by the 2020 CKD-EPI equation recommended by the National Kidney Foundation (A Unifying Approach to GFR Estimation: Recommendations of the NKF-ASK Task Force on Reassessing the Inclusion of Race in Diagnosing Kidney Disease, JASN 2020). The CKD-EPI equation should not be used for patients with unstable renal function and has not been validated in children and those over 70. Current interpretive data was last reviewed 2021. Blood 04/25/2024 10:3 5 AM TIRE WORKER 04/25/2024 10:38 AM TIRE WORKER Yusef Bennett DO LAB BLOOD ORDERABLES Final Result [facility] [address] [facility] Department [place] [address] * (ABNORMAL) Differential, auto (04/25/2024 10:35 AM TIRE WORKER) Pathologist [facility] Neutrophil abs 8.6(H) 1.5 - 6.5 K/cumm Imm gran abs 0.1 0.0 - 0.1 K/cumm [facility] Lymphocyte abs 2.4 0.8 - 3.3 K/cumm [facility] Monocyte abs 0.6 0.2 - 0.8 K/cumm [facility] Eosinophil abs 0.1 0.0 - 0.5 K/cumm [facility] Basophil abs 0.0 0.0 - 0.1 K/cumm [facility] Neutrophil pct 72.9 % [facility] Comment: Interpretive Data Percent cell count reference ranges are not reported, since discordance with absolute values may lead to misinterpretation of CBC data. Current Interpretive Data was last revised on 2017. Imm gran pct 0.8 % [facility] Comment: Interpretive Data Percent cell count reference ranges are not reported, since discordance with absolute values may lead to misinterpretation of CBC data. Current Interpretive Data was last revised on 2017. Lymphocyte pct 19.8 % [facility] Comment: Interpretive Data Percent cell count reference ranges are not reported, since discordance with absolute values may lead to misinterpretation of CBC data. Current Interpretive Data was last revised on 2017. Monocyte pct 5.4 % [facility] Comment: Interpretive Data Percent cell count reference ranges are not reported, since discordance with absolute values may lead to misinterpretation of CBC data. Current Interpretive Data was last revised on 2017. Eosinophil pct 0.8 % [facility] Comment: Interpretive Data Percent cell count reference ranges are not reported, since discordance with absolute values may lead to misinterpretation of CBC data. Current Interpretive Data was last revised on 2017. Basophil pct 0.3 % [facility] Comment: Interpretive Data Percent cell count reference ranges are not reported, since discordance with absolute values may lead to misinterpretation of CBC data. Current Interpretive Data was last revised on 2017. Blood 04/25/2024 10:3 5 AM TIRE WORKER 04/25/2024 10:38 AM TIRE WORKER Yusef Bennett DO LAB BLOOD ORDERABLES Final Result [facility] [address] [facility] Department [place] [address] * (ABNORMAL) CBC with auto differential (04/25/2024 10:35 AM TIRE WORKER) WBC 11.8(H) 3.8 - 9.9 K/cumm Hgb 15.3 13.0 - 17.5 g/dL [facility] Hct 46.2 38.9 - 50.3 % [facility] Plt 275 150 - 400 K/cumm [facility] MPV 9.6 9.1 - 12.3 fL [facility] RBC 5.37 4.30 - 5.80 M/cumm [facility] MCV 86.0 81.3 - 96.4 fL [facility] MCH 28.5 27.1 - 33.3 pg [facility] MCHC 33.1 32.3 - 35.7 g/dL [facility] RDW CV 12.7 11.1 - 14.9 % [facility] RDW SD 39.4 35.7 - 48.1 fL [facility] NRBC abs 0.00 0.00 - 0.01 K/cumm [facility] Blood Venous blood specimen / Unknown 04/25/2024 10:35 AM TIRE WORKER 04/25/2024 10:38 AM TIRE WORKER Yusef Young [facility] LAB BLOOD ORDERABLES Final Result Performing Organization Address [facility] Co de Phone Number [address] [employer] [place] [address] * Lipase (04/25/2024 10:35 AM TIRE WORKER) [facility] Lipase 22 10 - 99 Units/L Blood Venous blood specimen / Unknown 04/25/2024 10:35 AM TIRE WORKER 04/25/2024 10:38 AM TIRE WORKER Yusef Young [facility] LAB BLOOD ORDERABLES Final Result Performing Organization Address [facility] de Phone Number [address] [place] [address] * Comprehensive metabolic panel (04/25/2024 10:35 AM TIRE WORKER) [facility] Sodium 137 135 - 145 mmol/L Potassium, pl 4.7 3.3 - 4.9 mmol/L [facility] Chloride 103 97 - 110 mmol/L [facility] CO2 24 22 - 32 mmol/L [facility] Anion gap 10 2 - 15 mmol/L [facility] BUN 16 6 - 25 mg/dL [facility] Creatinine 0.96 0.80 - 1.30 mg/dL [facility] Glucose 87 70 - 199 mg/dL [facility] Comment: Interpretive Data Fasting glucose >/= 126 mg/dl is diagnostic for diabetes. Fasting is defined as no caloric intake for at least 8 hours. Fasting glucose between 100 mg/dl to 125 mg/dl is diagnostic of prediabetes. In a patient with classic symptoms of hyperglycemia or hyperglycemic crisis, a random glucose >/= 200 mg/dl is diagnostic for diabetes. In the absence of unequivocal hyperglycemia, results should be confirmed by repeat testing. The classification and Diagnosis of Diabetes Diabetes Care 2021; 46: S19-S40. Current interpretive data was last revised 2022. Calcium 9.4 8.5 - 10.3 mg/dL [facility] Bilirubin, total 0.2 0.1 - 1.2 mg/dL [facility] Protein, pl 7.5 6.5 - 8.5 g/dL [facility] Albumin 4.1 3.5 - 5.0 g/dL [facility] Alk phos 88 40 - 130 Units/L [facility] ALT 9 7 - 55 Units/L [facility] AST 17 10 - 50 Units/L [facility] Blood 04/25/2024 10:3 5 AM TIRE WORKER 04/25/2024 10:38 AM TIRE WORKER Yusef Bennett DO LAB BLOOD ORDERABLES Final Result [facility] [address] [facility] Department [place] [address] * (ABNORMAL) Hepatitis panel, acute (01/27/2017 11:07 AM TIRE WORKER) HepBsAg NONREACT NONREACTIVE 01/27/2017 12:18 PM [facility] HISTORICAL RESULTS Comment: Siemens PaxeraaurXP using MINDA (chemiluminescent immunoassay) technology. NONREACTIVE: IgM antibodies to Hepatitis B Surface antigen not detected. REACTIVE: IgM antibodies to Hepatitis B Surface antigen detected. Reactive results will be confirmed by neutralization testing. HBsAb qn < 3.10 mIU/mL 01/27/2017 12:07 PM TIRE WORKER [facility] HISTORICAL RESULTS Comment: Siemens PaxeraaurXP using MINDA (chemiluminescent immunoassay) technology. 9.99 IU/L or less.....NONREACTIVE: IgM antibodies to Hepatitis B Surface antibody are not detected. 10.00 IU/L or greater..REACTIVE: IgM antibodies to Hepatitis B Surface antibody are detected. Hep B core IgM NONREACT NONREACTIVE 7 12:46 PM TIRE WORKER [facility] HISTORICAL RESULTS Comment: Siemens CentaurXP using MINDA (chemiluminescent immunoassay) technology. NONREACTIVE: IgM antibodies to Hepatitis B Core antigen not detected. EQUIVOCAL: IgM antibodies to Hepatitis B Core antigen may or may not be present. Obtain a new specimen and retest. REACTIVE: IgM antibodies to Hepatitis B Core antigen detected. Hep A IgM NONREACT NONREACTIVE Comment: Siemens CentaurXP using MINDA (chemiluminescent immunoassay) technology. NONREACTIVE: IgM antibodies to Hepatitis A not detected. This does not exclude possibility of exposure to Hepatitis A or early acute infection. EQUIVOCAL:IgM antibodies to Hepatitis A may or may not be present. Suggest recollection and retest. REACTIVE: Antibodies to Hepatitis A detected. Hep C Ab REACTIVE(H) NONREACTIVE Comment: Siemens CentaurXP using MINDA (chemiluminescent immunoassay) technology. NONREACTIVE: Antibodies to Hepatitis C not detected. This does not exclude early acute Hepatitis C infection, possibility of exposure to Hepatitis C, antibodies below detection limit, or to lack of antibody reactivity to the antigen used in this assay. EQUIVOCAL: Antibodies to Hepatitis C may or may not be present. Sample to be confirmed by real-time PCR method. REACTIVE: Antibodies to Hepatitis C detected. Hepatitis C Virus Note 01/27/2017 1:31 PM [facility] HISTORICAL RESULTS Comment:NO CONFIRMATION TEST ING REQUIRED DUE TO HIGH REACTIVITY. 01/27/2017 11:0 7 AM TIRE WORKER 01/27/2017 11:13 AM TIRE WORKER Narrative [facility] HISTORICAL RESULTS - 01/27/2017 1:31 PM TIRE WORKER Comment add this test the blood drawn today us Mauro Merlos MD LAB MICROBIOLOGY - NERAL ORDERABLES Final Result [facility] HISTORICAL RESULTS from Last 3 Months or Most Recently Relevant to Health Maintenance Insurance [facility] Care Teams Glass Lathe Operator Relationship Specialty Start Date End Date Marychuy Lambert NP [address] [place] [address] PCP - General Family Medicine 11/10/23
--- OUTSIDE RECORDS SUMMARY | 2024-06-14 05:09 | XMS_ITS | Referral Summary ---
Author Organization [facility] Address [address] [place] [id number] Care Team Providers Care Gastroenterology Physician Name Role Phone Marychuy Lambert NP Primary Care Provider Encounters Date Type Department Care Team Description 04/25/2024 2:01 PM CUT OFF [employer] [employer] [facility] - 04/25/2024 3:38 PM CUT OFF [facility] [employer] [facility] Emergency [address] [address] Chapin Sprague MD Supraumbilical hernia (Primary Dx) Discharge Disposition: Discharge to home or self care from Last 3 Months Allergies No known active allergies Medications nicotine [...] kPa completed 8 weeks of mavyret 10/03/23 Social History Tobacco Use Types Packs/Day Years [...] on file Legal Sex Male 9:06 AM CUT OFF [employer] Gender Identity Not on file Sexual Orientation Not on file Last Filed Vital Signs Vital Sign Reading Time Taken Comments Blood Pressure 154/89 04/25/2024 3:30 PM CUT OFF [employer] Pulse 72 04/25/2024 3:30 PM CUT OFF [employer] Temperature 36.6 C (97.8 F) 04/25/2024 10:03 AM CUT OFF [employer] Respiratory Rate 18 04/25/2024 3:30 PM CUT OFF SAW OPER[employer] Oxygen Saturation 96% 04/25/2024 3:30 PM CUT OFF SAW [employer]PER[employer] Inhaled Oxygen Concentration - - Weight 136.1 kg (300 lb) 04/25/2024 10:03 AM CUT OFF SAW [employer] Height 165.1 cm (5' 5) 04/25/2024 10:03 AM CUT OFF SAW [employer] Body Mass Index 49.92 04/25/2024 10:03 AM CUT OFF [employer]W [employer] Plan of Treatment Not on file Procedures Procedure Name Priority Date/Time Associated Diagnosis Comments SEPSIS LACTATE WITH REFLEX STAT 04/25/2024 1:45 PM CUT OFF SAW OPERATOR [employer]IPE BLANKS CT ABDOMEN PELVIS W CONTRAST ED 04/25/2024 11:46 AM CUT OFF SAW [employer] URINALYSIS AND REFLEX TO MICROSCOPIC AND CULTURE STAT 04/25/2024 10:39 AM CUT OFF SAW OPER[employer] EGFR STAT 04/25/2024 10:35 AM CUT OFF SAW [employer] DIFFERENTIAL AUTO STAT 04/25/2024 10: 35 AM CUT OFF SAW [employer] LIPASE STAT 04/25/2024 10:35 AM CUT OFF SAW [employer] COMPREHENSIVE METABOLIC PANEL STAT 04/25/2024 10:35 AM CUT OFF SAW OPER[employer] CBC WITH AUTO DIFFERENTIAL STAT 04/25/2024 10:35 AM CUT OFF SAW OPER[employer] HEPATITIS PANEL, ACUTE Routine 7 11:07 AM CUT OFF SAW OPERATOR [employer] from Last 3 Months or Most Recently Relevant to Health Maintenance Results * Sepsis Lactate w/ Reflex (04/25/2024 1:45 PM CUT OFF SAW OPER[employer]) Sepsis Lactate 0.9 0.7 - 2.0 mmol/L Blood 04/25/2024 1:45 PM CUT OFF SAW [employer]PER[employer] 04/25/2024 1:49 PM CUT OFF SAW OPERATOR [employer] us [facility] LAB BLOOD ORDERABLES Final Resu lt LUIS [address] [facility] Department [place] [address] * CT Abdomen Pelvis W Contrast (04/25/2024 11:46 AM CUT OFF SAW OPERATOR [employer]AN[employer]) Anatomical Region Laterality Modality Body N/A Computed Tomogra phy 04/25/2024 11:5 0 AM CUT OFF SAW OPER[employer]KS Narrative 04/25/2024 12:06 PM CUT OFF SAW OPER[employer] EXAM DESCRIPTION: CT ABDOMEN PELVIS W CONTRAST [...] by Nery Stevens M.D. T: Report ID: [id number] Reading Location: [id number] Procedure Note Nery Stevens MD - 04/25/2024 [...] by Nery Stevens M.D. T: Report ID: [id number] Reading Location: [place] [address] PROCEDURES Final Result * Urinalysis reflex to microscopic and culture Urine (04/25/2024 10:39 AM CUT OFF SAW OPERATOR [employer]) Color, ur Yellow Yellow Clarity, ur Clear Clear LUIS Specific gravity, ur 1.021 1.003 - 1.030 LUIS pH, urine 6.0 LUIS Comment: Interpretive Data U rine pH is affected by diet, medications, systemic acid-base disturbances, and renal tubular function. pH may affect urinary stone formation. For example, urine pH below 6.0 may help reduce the tendency for calcium phosphate stones and pH greater than 6.0 may reduce the tendency for uric acid stone formation. Source: [facility] [employer] Current Interpretive Data was last revised on 2017 Protein, ur ql Negative Negative [facility] Glucose, ur ql Negative Negative [facility] Ketones, ur Negative Negative [facility] Bilirubin, ur Negative Negative [facility] Blood, ur Negative Negative [facility] Urobilinogen, ur <2.0 <2.0 mg/dL [facility] Nitrite, ur Negative Negative [facility] Leukocyte esterase, ur Negative Negative [facility] UA reflex comment Reflex conditions for microscopic UA and culture not met. LUIS Urine 04/25/2024 10:3 9 AM CUT OFF SAW OPER[employer] 04/25/2024 10:42 AM CUT OFF SAW [employer]PER[employer] Yusef Bennett DO LAB MICROBIOLOGY - GENERAL ORDERABLES Final Result Performing Organization Address [facility] de Phone Number LUIS [address] [facility] Department [place] [address] * eGFR (04/25/2024 10:35 AM CUT OFF SAW OPER[employer]) eGFR >90 >=60 mL/min/1. 73 m2 Comment: [...] reviewed 2021. Blood 04/25/2024 10:3 5 AM CUT OFF SAW OPER[employer]KS 04/25/2024 10:38 AM CUT OFF SAW OPERATOR [employer] us Yusef Bennett DO LAB BLOOD ORDERABLES Final Result Performing Organization Address City/[facility] Co de Phone Number LUIS [address] [facility] Department [place] [address] * (ABNORMAL) Differential, auto (04/25/2024 10:35 AM CUT OFF SAW OPERATOR [employer]) Neutrophil abs 8.6(H) 1.5 - 6.5 K/cumm Imm gran abs 0.1 0.0 - 0.1 K/cumm [facility] Lymphocyte abs 2.4 0.8 - 3.3 K/cumm [facility] Monocyte abs 0.6 0.2 - 0.8 K/cumm [facility] Eosinophil abs 0.1 0.0 - 0.5 K/cumm [facility] Basophil abs 0.0 0.0 - 0.1 K/cumm [facility] Neutrophil pct 72.9 % [facility] Comment: Interpretive Data Percent cell count reference ranges are not reported, since discordance with absolute values may lead to misinterpretation of CBC data. Current Interpretive Data was last revised on 2017. Imm gran pct 0.8 % [facility] Comment: Interpretive Data Percent cell count reference ranges are not reported, since discordance with absolute values may lead to misinterpretation of CBC data. Current Interpretive Data was last revised on 2017. Lymphocyte pct 19.8 % [facility] Comment: Interpretive Data Percent cell count reference ranges are not reported, since discordance with absolute values may lead to misinterpretation of CBC data. Current Interpretive Data was last revised on 2017. Monocyte pct 5.4 % [facility] Comment: Interpretive Data Percent cell count reference ranges are not reported, since discordance with absolute values may lead to misinterpretation of CBC data. Current Interpretive Data was last revised on 2017. Eosinophil pct 0.8 % [facility] Comment: Interpretive Data Percent cell count reference ranges are not reported, since discordance with absolute values may lead to misinterpretation of CBC data. Current Interpretive Data was last revised on 2017. Basophil pct 0.3 % [facility] Comment: Interpretive Data Percent cell count reference ranges are not reported, since discordance with absolute values may lead to misinterpretation of CBC data. Current Interpretive Data was last revised on 2017. Blood 04/25/2024 10:3 5 AM CUT OFF SAW [employer]PERATOR [employer] 04/25/2024 10:38 AM CUT OFF SAW OPERATOR [employer]KS [facility] Final Result Performing Organization Address [facility] Co de Phone Number LUIS [address] [place] [address] * (ABNORMAL) CBC with auto differential (04/25/2024 10:35 AM CUT OFF SAW OPERATOR [employer]KS) [facility] WBC 11.8(H) 3.8 - 9.9 K/cumm Hgb 15.3 13.0 - 17.5 g/dL [facility] Hct 46.2 38.9 - 50.3 % [facility] Plt 275 150 - 400 K/cumm [facility] MPV 9.6 9.1 - 12.3 fL [facility] RBC 5.37 4.30 - 5.80 M/cumm [facility] MCV 86.0 81.3 - 96.4 fL [facility] MCH 28.5 27.1 - 33.3 pg [facility] MCHC 33.1 32.3 - 35.7 g/dL [facility] RDW CV 12.7 11.1 - 14.9 % [facility] RDW SD 39.4 35.7 - 48.1 fL [facility] NRBC abs 0.00 0.00 - 0.01 K/cumm [facility] Blood Venous blood specimen / Unknown 04/25/2024 10:35 AM CUT OFF SAW OPERATOR [employer]KS 04/25/2024 10:38 AM CUT OFF SAW OPERATOR [employer]KS Yusef Bennett [facility] BLOOD ORDERABLES Final Result Performing Organization Address City/[facility]/ZIP Co de Phone Number L[address] [address] * Lipase (04/25/2024 10:35 AM CUT OFF SAW OPERATOR [employer]ANKS) [facility] Lipase 22 10 - 99 Units/L Blood Venous blood specimen / Unknown 04/25/2024 10:35 AM CUT OFF SAW OPER[employer] 04/25/2024 10:38 AM CUT OFF SAW OPERATOR [employer] Yusef Hector Bennett DO LAB BLOOD ORDERABLES Final Result Performing Organization Address City/[facility]/ZIP Co de Phone Number LUIS [address] [facility] [place] [address] * Comprehensive metabolic panel (04/25/2024 10:35 AM CUT OFF SAW OPERATOR [employer]) Sodium 137 135 - 145 mmol/L Potassium, pl 4.7 3.3 - 4.9 mmol/L [facility] Chloride 103 97 - 110 mmol/L [facility] CO2 24 22 - 32 mmol/L [facility] Anion gap 10 2 - 15 mmol/L [facility] BUN 16 6 - 25 mg/dL [facility] Creatinine 0.96 0.80 - 1.30 mg/dL [facility] Glucose 87 70 - 199 mg/dL [facility] Comment: Interpretive Data Fasting glucose >/= 126 [...] classification and Diagnosis of Diabetes Diabetes Care 202; 46: S19-S40. Current interpretive data was last revised 2022. Calcium 9.4 8.5 - 10.3 mg/dL [facility] Bilirubin, total 0.2 0.1 - 1.2 mg/dL [facility] Protein, pl 7.5 6.5 - 8.5 g/dL [facility] Albumin 4.1 3.5 - 5.0 g/dL [facility] Alk phos 88 40 - 130 Units/L [facility] ALT 9 7 - 55 Units/L [facility] AST 17 10 - 50 Units/L [facility] Blood 04/25/2024 10:3 5 AM CUT OFF SAW [employer]KS 04/25/2024 10:38 AM CUT OFF SAW OPER[employer] Yusef Hector Bennett LAB BLOOD ORDERABLES Final Result Performing Organization Address City/[facility]/ZIP Co de Phone Number LUIS [address] Department [place] [address] * (ABNORMAL) Hepatitis panel, acute (01/27/2017 11:07 AM CUT OFF SAW OPERATOR [employer]) HepBsAg NONREACT NONREACTIVE 01/27/2017 12:18 PM CUT OFF SAW OPERATOR PIPE BLANKS [facility] [employer] HISTORICAL RESULTS Comment: Siem[employer] CentaurXP using MINDA (chemiluminescent immunoassay) technology. NONREACTIVE: IgM antibodies to Hepatitis B Surface antigen not detected. REACTIVE: IgM antibodies to Hepatitis B Surface antigen detected. Reactive results will be confirmed by neutralization testing. HBsAb qn < 3.10 mIU/mL 01/27/2017 12:07 PM CUT OFF SAW OPERATOR PIPE BLANKS [facility] [employer] HISTORICAL RESULTS Comment: Siemens CentaurXP using MINDA (chemiluminescent immunoassay) technology. 9.99 IU/L or less.....NONREACTIVE: IgM antibodies to Hepatitis B Surface antibody are not detected. 10.00 IU/L or greater..REACTIVE: IgM antibodies to Hepatitis B Surface antibody are detected. Hep B core IgM NONREACT NONREACTIVE 7 12:46 PM CUT OFF SAW OPERATOR [employer] BLANKS [facility] [employer] HISTORICAL RESULTS Comment: Siemens CentaurXP using MINDA (chemiluminescent immunoassay) technology. NONREACTIVE: IgM antibodies to Hepatitis B Core antigen not detected. EQUIVOCAL: IgM antibodies to Hepatitis B Core antigen may or may not be present. Obtain a new specimen and retest. REACTIVE: IgM antibodies to Hepatitis B Core antigen detected. Hep A IgM NONREACT NONREACTIVE 01/27/2017 12:48 PM CUT OFF SAW OPERATOR [employer]IPE BLANKS [facility] [employer] HISTORICAL RESULTS Comment: Siemens CentaurXP using MINDA (chemiluminescent immunoassay) technology. NONREACTIVE: IgM antibodies to Hepatitis A not detected. This does not exclude possibility of exposure to Hepatitis A or early acute infection. EQUIVOCAL:IgM antibodies to Hepatitis A may or may not be present. Suggest recollection and retest. REACTIVE: Antibodies to Hepatitis A detected. Hep C Ab REACTIVE(H) NONREACTIVE 01/27/2017 1:31 PM CUT OFF SAW OPERATOR PIPE BLANKS [employer] HISTORICAL RESULTS Comment: Siemens CentaurXP using MINDA [...] Hepatitis C Virus Note 01/27/2017 1:31 PM CUT OFF SAW OPERATOR [employer]IPE BLANKS [facility] [employer] HISTORICAL RESULTS Comment:NO CONFIRMATION TEST ING REQUIRED DUE TO HIGH REACTIVITY. 01/27/2017 11:0 7 AM CUT OFF SAW OPERATOR [employer]KS 01/27/2017 11:13 AM CUT OFF SAW OPERATOR [employer]ANKS Narrative [facility] HISTORICAL RESULTS - 01/27/2017 1:31 PM CUT OFF SAW OPERATOR [employer]KS Comment add this test the blood drawn today Mauro Merlso MD LAB MICROBIOLOGY - [facility] ORDERABLES Final Result [facility] HISTORICAL RESULTS from Last 3 Months or Most Recently Relevant to Health Maintenance Insurance [facility] Care Teams Gastroenterology Physician Relationship Specialty Start Date End Date Marychuy Lambert NP [address] [facility] [address] [place] [address] [place] [id number] PCP - General Family Medicine 11/10/23
[2024-06-14] MEDS: KETOROLAC 15 MG/ML VIAL (*BKC) IV PUSH (07:56)
[2024-06-14] MEDS: CLINDAMYCIN 600 MG/D5W 50 ML 600 MG/50 ML PIGGYBACK 100 MG IVPB (07:56)
[2024-06-14 07:57] LABS: Basophils Percent Auto 0.2 % (0.2-1.2); Eosinophils Percent Auto 0.2 % (0-4.4); Hematocrit 45.8 % (42.0-52.0); Hemoglobin 15.3 g/dL (14.0-18.0); Immature Granulocyte Absolute 0.06 K/mm3 (0.00-0.031); Immature Granulocyte Percent A 0.4 % (0-0.5); Lymphocytes Absolute Auto 1.61 K/mm3 (0.9-3.2); Lymphocytes Percent Auto 11.7 % (18.3-44.2); Mean Corpuscular HGB Conc 33.4 g/dl (32-36); Mean Corpuscular Hemoglobin 29.1 pg (26-34); Mean Corpuscular Volume 87.2 fl (80-100); Mean Platelet Volume 9.2 fl (7.4-10.4); Monocytes Absolute Auto 0.8 K/mm3 (0.1-0.6); Monocytes Percent Auto 5.9 % (2.6-8.5); Neutrophils Absolute Auto 11.2 K/mm3 (1.3-6.7); Neutrophils Percent Auto 81.6 % (45.5-73.1); Platelet Count Result 276 k/mm3 (150-375); Red Blood Count 5.25 M/mm3 (4.6-6.20); Red Cell Distribution Width 12.7 % (11.5-14.5); White Blood Count 13.8 K/mm3 (4.5-10.0)
--- OUTSIDE RECORDS SUMMARY | 2024-06-14 08:06 | XMS_ITS | Clinical Summary ---
Author Organization [facility] Address [facility] [place] [address] Care Team Providers Care Silk Presser Name Role Phone Marychuy Lambert NP Primary Care Provider [phone] Allergies No known active allergies Medications nicotine [...] Department Care Team Description 04/25/2024 2:01 PM CELL SUPPORT OPERATOR - 04/25/2024 3:38 PM CELL SUPPORT OPERATOR Emergency [place] [phone] Chapin Sprague MD Supraumbilical hernia (Primary Dx) [...] on file Legal Sex Male 9:06 AM CELL SUPPORT OPERATOR Gender Identity Not on file Sexual Orientation Not on file Obstetrics History Last Filed Vital Signs Vital Sign Reading Time Taken Comments Blood Pressure 154/89 04/25/2024 3:30 PM CELL SUPPORT OPERATOR Pulse 72 04/25/2024 3:30 PM CELL SUPPORT OPERATOR Temperature 36.6 C (97.8 F) 04/25/2024 10:03 AM CELL SUPPORT OPERATOR Respiratory Rate 18 04/25/2024 3:30 PM CELL SUPPORT OPERATOR Oxygen Saturation 96% 04/25/2024 3:30 PM CELL SUPPORT OPERATOR Inhaled Oxygen Concentration - - Weight 136.1 kg (300 lb) 04/25/2024 10:03 AM CELL SUPPORT OPERATOR Height 165.1 cm (5' 5) 04/25/2024 10:03 AM CELL SUPPORT OPERATOR Body Mass Index 49.92 04/25/2024 10:03 AM CELL SUPPORT OPERATOR Plan of Treatment Health Maintenance Due Date [...] LACTATE WITH REFLEX STAT 04/25/2024 1:[address] ABDOMEN PELVIS W CONTRAST ED 04/25/2024 11:46 AM CELL SUPPORT OPERATOR URINALYSIS AND REFLEX TO MICROSCOPIC AND CULTURE STAT 04/25/2024 10:39 AM CELL SUPPORT OPERATOR EGFR STAT 04/25/2024 10:35 AM CELL SUPPORT OPERATOR DIFFERENTIAL AUTO STAT 04/25/2024 10: 35 AM CELL SUPPORT OPERATOR LIPASE STAT 04/25/2024 10:35 AM CELL SUPPORT OPERATOR COMPREHENSIVE METABOLIC PANEL STAT 04/25/2024 10:35 AM CELL SUPPORT OPERATOR CBC WITH AUTO DIFFERENTIAL STAT 04/25/2024 10:35 AM CELL SUPPORT OPERATOR HEPATITIS PANEL, ACUTE Routine 7 11:07 AM CELL SUPPORT OPERATOR from Last 3 Months or Most Recently Relevant to Health Maintenance Results * Sepsis Lactate w/ Reflex (04/25/2024 1:45 PM CELL SUPPORT OPERATOR) Sepsis Lactate 0.9 0.7 - 2.0 mmol/L Blood 04/25/2024 1:45 PM CELL SUPPORT OPERATOR 04/25/2024 1:49 PM CELL SUPPORT OPERATOR us Candace NEWMAN LAB BLOOD ORDERABLES Final Resu lt [facility] [address] [facility] Department [place] [address] * CT Abdomen Pelvis W Contrast (04/25/2024 11:46 AM CELL SUPPORT OPERATOR) Anatomical Region Laterality Modality Body N/A Computed Tomogra phy 04/25/2024 11:5 0 AM CELL SUPPORT OPERATOR Narrative 04/25/2024 12:06 PM CELL SUPPORT OPERATOR EXAM DESCRIPTION: CT ABDOMEN PELVIS W CONTRAST [...] Nery Stevens M.D. LL T: Report ID: [id number] Reading Location: [id number] Procedure Note Nery Stevens MD - 04/25/2024 [...] by Nery Stevens M.D. T: Report ID: [id number] Reading Location: [place] [address] PROCEDURES Final Result * Urinalysis reflex to microscopic and culture Urine (04/25/2024 10:39 AM CELL SUPPORT OPERATOR) Color, ur Yellow Yellow Clarity, ur Clear Clear [facility] Specific gravity, ur 1.021 1.003 - 1.030 [facility] pH, urine 6.0 [facility] Comment: Interpretive Data U rine pH is affected by diet, medications, systemic acid-base disturbances, and renal tubular function. pH may affect urinary stone formation. For example, urine pH below 6.0 may help reduce the tendency for calcium phosphate stones and pH greater than 6.0 may reduce the tendency for uric acid stone formation. Source: [facility] Current Interpretive Data was last revised on 2017 Protein, ur ql Negative Negative [facility] Glucose, ur ql Negative Negative [facility] Ketones, ur Negative Negative [facility] Bilirubin, ur Negative Negative [facility] Blood, ur Negative Negative [facility] Urobilinogen, ur <2.0 <2.0 mg/dL [facility] Nitrite, ur Negative Negative [facility] Leukocyte esterase, ur Negative Negative [facility] UA reflex comment Reflex conditions for microscopic UA and culture not met. [facility] Urine 04/25/2024 10:3 9 AM CELL SUPPORT OPERATOR 04/25/2024 10:42 AM CELL SUPPORT OPERATOR Yusef Bennett DO LAB MICROBIOLOGY - GENERAL ORDERABLES Final Result [facility] [address] [facility] Department [place] [address] * eGFR (04/25/2024 10:35 AM CELL SUPPORT OPERATOR) eGFR >90 >=60 mL/min/1. 73 m2 Comment: [...] reviewed 2021. Blood 04/25/2024 10:3 5 AM CELL SUPPORT OPERATOR 04/25/2024 10:38 AM CELL SUPPORT OPERATOR Yusef Bennett DO LAB BLOOD ORDERABLES Final Result [facility] [address] [facility] Department [place] [address] * (ABNORMAL) Differential, auto (04/25/2024 10:35 AM CELL SUPPORT OPERATOR) Pathologist [facility] Neutrophil abs 8.6(H) 1.5 - 6.5 K/cumm Imm gran abs 0.1 0.0 - 0.1 K/cumm [facility] Lymphocyte abs 2.4 0.8 - 3.3 K/cumm [facility] Monocyte abs 0.6 0.2 - 0.8 K/cumm [facility] Eosinophil abs 0.1 0.0 - 0.5 K/cumm [facility] Basophil abs 0.0 0.0 - 0.1 K/cumm [facility] Neutrophil pct 72.9 % [facility] Comment: Interpretive Data Percent cell count reference ranges are not reported, since discordance with absolute values may lead to misinterpretation of CBC data. Current Interpretive Data was last revised on 2017. Imm gran pct 0.8 % [facility] Comment: Interpretive Data Percent cell count reference ranges are not reported, since discordance with absolute values may lead to misinterpretation of CBC data. Current Interpretive Data was last revised on 2017. Lymphocyte pct 19.8 % [facility] Comment: Interpretive Data Percent cell count reference ranges are not reported, since discordance with absolute values may lead to misinterpretation of CBC data. Current Interpretive Data was last revised on 2017. Monocyte pct 5.4 % [facility] Comment: Interpretive Data Percent cell count reference ranges are not reported, since discordance with absolute values may lead to misinterpretation of CBC data. Current Interpretive Data was last revised on 2017. Eosinophil pct 0.8 % [facility] Comment: Interpretive Data Percent cell count reference ranges are not reported, since discordance with absolute values may lead to misinterpretation of CBC data. Current Interpretive Data was last revised on 2017. Basophil pct 0.3 % [facility] Comment: Interpretive Data Percent cell count reference ranges are not reported, since discordance with absolute values may lead to misinterpretation of CBC data. Current Interpretive Data was last revised on 2017. Blood 04/25/2024 10:3 5 AM CELL SUPPORT OPERATOR 04/25/2024 10:38 AM CELL SUPPORT OPERATOR Yusef Bennett DO LAB BLOOD ORDERABLES Final Result [facility] [address] [facility] Department [place] [address] * (ABNORMAL) CBC with auto differential (04/25/2024 10:35 AM CELL SUPPORT OPERATOR) WBC 11.8(H) 3.8 - 9.9 K/cumm Hgb 15.3 13.0 - 17.5 g/dL [facility] Hct 46.2 38.9 - 50.3 % [facility] Plt 275 150 - 400 K/cumm [facility] MPV 9.6 9.1 - 12.3 fL [facility] RBC 5.37 4.30 - 5.80 M/cumm [facility] MCV 86.0 81.3 - 96.4 fL [facility] MCH 28.5 27.1 - 33.3 pg [facility] MCHC 33.1 32.3 - 35.7 g/dL [facility] RDW CV 12.7 11.1 - 14.9 % [facility] RDW SD 39.4 35.7 - 48.1 fL [facility] NRBC abs 0.00 0.00 - 0.01 K/cumm [facility] Blood Venous blood specimen / Unknown 04/25/2024 10:35 AM CELL SUPPORT OPERATOR 04/25/2024 10:38 AM CELL SUPPORT OPERATOR Yusef Young [facility] LAB BLOOD ORDERABLES Final Result Performing Organization Address [facility] Co de Phone Number [address] [place] [address] * Lipase (04/25/2024 10:35 AM CELL SUPPORT OPERATOR) [facility] Lipase 22 10 - 99 Units/L Blood Venous blood specimen / Unknown 04/25/2024 10:35 AM CELL SUPPORT OPERATOR 04/25/2024 10:38 AM CELL SUPPORT OPERATOR Yusef Young [facility] LAB BLOOD ORDERABLES Final Result Performing Organization Address [facility] de Phone Number [address] [place] [address] * Comprehensive metabolic panel (04/25/2024 10:35 AM CELL SUPPORT OPERATOR) [facility] Sodium 137 135 - 145 mmol/L Potassium, pl 4.7 3.3 - 4.9 mmol/L [facility] Chloride 103 97 - 110 mmol/L [facility] CO2 24 22 - 32 mmol/L [facility] Anion gap 10 2 - 15 mmol/L [facility] BUN 16 6 - 25 mg/dL [facility] Creatinine 0.96 0.80 - 1.30 mg/dL [facility] Glucose 87 70 - 199 mg/dL [facility] Comment: Interpretive Data Fasting glucose >/= 126 [...] 2022. Calcium 9.4 8.5 - 10.3 mg/dL [facility] Bilirubin, total 0.2 0.1 - 1.2 mg/dL [facility] Protein, pl 7.5 6.5 - 8.5 g/dL [facility] Albumin 4.1 3.5 - 5.0 g/dL [facility] Alk phos 88 40 - 130 Units/L [facility] ALT 9 7 - 55 Units/L [facility] AST 17 10 - 50 Units/L [facility] Blood 04/25/2024 10:3 5 AM CELL SUPPORT OPERATOR 04/25/2024 10:38 AM CELL SUPPORT OPERATOR Yusef Bennett DO LAB BLOOD ORDERABLES Final Result [facility] [address] [facility] Department [place] [address] * (ABNORMAL) Hepatitis panel, acute (01/27/2017 11:07 AM CELL SUPPORT OPERATOR) HepBsAg NONREACT NONREACTIVE 01/27/2017 12:[address] [facility] HISTORICAL RESULTS Comment: Siemens UdacityaurXP using MINDA (chemiluminescent immunoassay) technology. NONREACTIVE: IgM antibodies to Hepatitis B Surface antigen not detected. REACTIVE: IgM antibodies to Hepatitis B Surface antigen detected. Reactive results will be confirmed by neutralization testing. HBsAb qn < 3.10 mIU/mL 01/27/2017 12:07 PM CELL SUPPORT OPERATOR [facility] HISTORICAL RESULTS Comment: Siemens UdacityaurXP using MINDA (chemiluminescent immunoassay) technology. 9.99 IU/L or less.....NONREACTIVE: IgM antibodies to Hepatitis B Surface antibody are not detected. 10.00 IU/L or greater..REACTIVE: IgM antibodies to Hepatitis B Surface antibody are detected. Hep B core IgM NONREACT NONREACTIVE 7 12:46 PM CELL SUPPORT OPERATOR [facility] HISTORICAL RESULTS Comment: Siemens CentaurXP using MINDA (chemiluminescent immunoassay) technology. NONREACTIVE: IgM antibodies to Hepatitis B Core antigen not detected. EQUIVOCAL: IgM antibodies to Hepatitis B Core antigen may or may not be present. Obtain a new specimen and retest. REACTIVE: IgM antibodies to Hepatitis B Core antigen detected. Hep A IgM NONREACT NONREACTIVE 01/27/2017 12:48 PM CELL SUPPORT OPERATOR [facility] HISTORICAL RESULTS Comment: Siemens CentaurXP using MINDA (chemiluminescent immunoassay) technology. NONREACTIVE: IgM antibodies to Hepatitis A not detected. This does not exclude possibility of exposure to Hepatitis A or early acute infection. EQUIVOCAL:IgM antibodies to Hepatitis A may or may not be present. Suggest recollection and retest. REACTIVE: Antibodies to Hepatitis A detected. Hep C Ab REACTIVE(H) NONREACTIVE 01/27/2017 1:31 PM CELL SUPPORT OPERATOR [facility] HISTORICAL RESULTS Comment: Siemens CentaurXP using MINDA [...] Hepatitis C Virus Note 01/27/2017 1:[address] [facility] HISTORICAL RESULTS Comment:NO CONFIRMATION TEST ING REQUIRED DUE TO HIGH REACTIVITY. 01/27/2017 11:0 7 AM CELL SUPPORT OPERATOR 01/27/2017 11:13 AM CELL SUPPORT OPERATOR Narrative [facility] HISTORICAL RESULTS - 01/27/2017 1:31 PM CELL SUPPORT OPERATOR Comment add this test the blood drawn today us Mauro Merlos MD LAB MICROBIOLOGY - NERAL ORDERABLES Final Result [facility] HISTORICAL RESULTS from Last 3 Months or Most Recently Relevant to Health Maintenance Insurance [facility] Care Teams Silk Presser Relationship Specialty Start Date End Date Marychuy Lambert NP [address] [place] [address] PCP - General Family Medicine 11/10/23
--- OUTSIDE RECORDS SUMMARY | 2024-06-14 08:06 | XMS_ITS | Clinical Summary ---
Author Organization [facility] Address [address] [place] [address] Phone Care Team Providers Care Humanities And Languages Professor Name Role Phone Unavailable Primary Care Provider [...] 2) 07/14/2023 INFLUENZA VACCINE (#1) 2023 Insurance [facility] MEDICAID
--- OUTSIDE RECORDS SUMMARY | 2024-06-14 08:06 | XMS_ITS | Clinical Summary ---
Author Organization [facility] [email or web address] Address [address] [place] [address] Care Team Providers Care Senior Ux Designer Name Role Phone Marychuy Lambert MANAGER PRODUCT DESIGN-PALLIATIVE MEDICINE PHYSICIAN Primary Care Provider + Source Comments [facility],non-owned Affiliates and Associated Physician Practices is amultiple site organization consisting of ambulatory clinics and hospital sitesin [place], [place], [place] and [place]. This disclosure is being madepursuant to the Care Everywhere program and may not contain all information available regarding this patient. Last updated 17.[facility] [email or web address] Allergies No known active allergies Medications * [...] Description 07/12/2024 9:30 AM CDT Procedure visit [facility] [address] [place] [address] [phone] 07/12/2024 10:00 AM CDT Office Visit [facility] [address] [place] [address] [phone] Dolores Marrero M, MANAGER PRODUCT DESIGN-PALLIATIVE MEDICINE PHYSICIAN [address] [place] [address] [place] [address] Health Maintenance Due Date Last Done Comments [...] detected Not detected 10/07/2023 5:24 AM CDT [facility] MICROBIOLOGY Blood BLOOD SPECIMEN / Unknown Lab Venipuncture / Unknown 10/06/2023 10:38 AM CDT 10/06/2023 11:03 AM CDT Narrative [facility] MICROBIOLOGY - 10/07/2023 5:24 AM CDT The Hepatitis C viral (HCV) RNA analysis utilized a serum sample, real-time reverse special education classroom aide PCR, and is reported as Not Detected, [...] the isolation of HCV RNA with reverse special education classroom aide of genomic HCV RNA followed by real-time PCR in the presence of an unrelated RNA internal control. The internal control ensures that RNA is isolated, and that no general significant inhibitors of the RT-PCR process are present. The analysis was performed using a [place].S. FDA approved test methodology. Dolores Marrero MANAGER PRODUCT DESIGN-PALLIATIVE MEDICINE PHYSICIAN LAB - CHEMIS TRY ORDERABLES [facility] MICROBIOLOGY [address] [place] [address], [facility] [phone] * (ABNORMAL) COMPREHENSIVE METABOLIC PANEL (10/06/2023 10:38 AM CDT) BUN 24 7 - 26 mg/dL 10/06/2023 12:09 PM [facility] Creatinine 1.00 0.71 - 1.16 mg/dL 10/06/2023 12:09 PM [facility] Sodium 140 136 - 145 mmol/L 10/06/2023 12:09 PM [facility] Potassium 4.2 3.5 - 4.5 mmol/L 10/06/2023 12:09 PM [facility] Chloride 107 98 - 107 mmol/L 10/06/2023 12:09 PM [facility] CO2 21(L) 22 - 29 mmol/L 10/06/2023 12:09 PM [facility] Glucose 99 70 - 115 mg/dL 10/06/2023 12:09 PM [facility] Calcium 9.7 8.4 - 10.2 mg/dL 10/06/2023 12:09 PM [facility] Protein Total 7.6 6.0 - 8.3 g/dL 10/06/2023 12:09 PM [facility] Albumin 4.1 3.4 - 5.0 g/dL 10/06/2023 12:09 PM [facility] Bilirubin Total 0.3 0.2 - 1.2 mg/dL 10/06/2023 12:09 PM [facility] Alkaline Phosphatase 93 40 - 150 U/L 10/06/2023 12:09 PM [facility] ALT 12 5 - 55 U/L 10/06/2023 12:09 PM [facility] AST 14 5 - 34 U/L 10/06/2023 12:09 PM [facility] Anion Gap 12 6 - 16 10/06/2023 12:09 PM [facility] BUN/Creatinine Ratio 24(H) 7 - 23 10/06/2023 12:09 PM [facility] Osmolality Calculated 294 275 - 295 mOsm/kg 10/06/2023 12:09 PM [facility] Albumin/Globulin Ratio 1.2 1.1 - 2.3 10/06/2023 12:09 PM [facility] eGFR by CKD-EPI >90 >=90 mL/min/1.7 3 m2 10/06/2023 12:09 PM [facility] Blood BLOOD SPECIMEN / Unknown Lab Venipuncture / Unknown 10/06/2023 10:38 AM T 10/06/2023 11:30 AM [facility] Dolores Marrero MANAGER PRODUCT DESIGN-PALLIATIVE MEDICINE PHYSICIAN LAB - CHEMIS TRY ORDERABLES [facility] [address] [place] [phone], [facility] [phone] * HIV-1 HIV-2 ANTIBODY + HIV P24 AG PANEL (07/25/2023 1:13 PM CDT) HIV Antigen/Antibod y 1 & 2 Non-reacti ve Non-react siobhan 07/25/2023 3:36 PM CDT [facility] Comment:No Laboratory eviden ce of HIV infection. Blood BLOOD SPECIMEN / Unknown Lab Venipuncture / Unknown 07/25/2023 1:13 PM CDT 07/25/2023 1:36 PM CDT Dolores Marrero APRN-PALLIATIVE MEDICINE PHYSICIAN LAB - CHEMIS TRY ORDERABLES [facility] [address] [place] [address], [facility] [phone] from Last 3 Months or Most Recently Relevant to Health Maintenance Care Teams Senior Ux Designer Relationship Specialty Start Date End Date Marychuy Lambert APRN-PALLIATIVE MEDICINE PHYSICIAN [facility] , [address] [place] [address] PCP - General 01/12/24
--- OUTSIDE RECORDS SUMMARY | 2024-06-14 08:06 | XMS_ITS | Referral Summary ---
Author Organization [facility] Address [address] [place] [id number] Care Team Providers Care Slotter Operator Name Role Phone Marychuy Lambert NP Primary Care Provider [phone] Encounters Date Type Department Care Team Description 04/25/2024 2:01 PM UNDERWRITING SPECIALIST - 04/25/2024 3:38 PM UNDERWRITING SPECIALIST Emergency [address] [address] Chapin Sprague MD Supraumbilical hernia [...] on file Legal Sex Male 9:06 AM UNDERWRITING SPECIALIST Gender Identity Not on file Sexual Orientation Not on file Last Filed Vital Signs Vital Sign Reading Time Taken Comments Blood Pressure 154/89 04/25/2024 3:30 PM UNDERWRITING SPECIALIST Pulse 72 04/25/2024 3:30 PM UNDERWRITING SPECIALIST Temperature 36.6 C (97.8 F) 04/25/2024 10:03 AM UNDERWRITING SPECIALIST Respiratory Rate 18 04/25/2024 3:30 PM UNDERWRITING SPECIALIST Oxygen Saturation 96% 04/25/2024 3:30 PM UNDERWRITING SPECIALIST Inhaled Oxygen Concentration - - Weight 136.1 kg (300 lb) 04/25/2024 10:03 AM UNDERWRITING SPECIALIST Height 165.1 cm (5' 5) 04/25/2024 10:03 AM UNDERWRITING SPECIALIST Body Mass Index 49.92 04/25/2024 10:03 AM UNDERWRITING SPECIALIST Plan of Treatment Not on file Procedures Procedure Name Priority Date/Time Associated Diagnosis Comments SEPSIS LACTATE WITH REFLEX STAT 04/25/2024 1:[address] ABDOMEN PELVIS W CONTRAST ED 04/25/2024 11:46 AM UNDERWRITING SPECIALIST URINALYSIS AND REFLEX TO MICROSCOPIC AND CULTURE STAT 04/25/2024 10:39 AM UNDERWRITING SPECIALIST EGFR STAT 04/25/2024 10:35 AM UNDERWRITING SPECIALIST DIFFERENTIAL AUTO STAT 04/25/2024 10: 35 AM UNDERWRITING SPECIALIST LIPASE STAT 04/25/2024 10:35 AM UNDERWRITING SPECIALIST COMPREHENSIVE METABOLIC PANEL STAT 04/25/2024 10:35 AM UNDERWRITING SPECIALIST CBC WITH AUTO DIFFERENTIAL STAT 04/25/2024 10:35 AM UNDERWRITING SPECIALIST HEPATITIS PANEL, ACUTE Routine 7 11:07 AM UNDERWRITING SPECIALIST from Last 3 Months or Most Recently Relevant to Health Maintenance Results * Sepsis Lactate w/ Reflex (04/25/2024 1:45 PM UNDERWRITING SPECIALIST) Sepsis Lactate 0.9 0.7 - 2.0 mmol/L Blood 04/25/2024 1:45 PM UNDERWRITING SPECIALIST 04/25/2024 1:49 PM UNDERWRITING SPECIALIST us [facility] LAB BLOOD ORDERABLES Final Resu lt LUIS [address] [facility] [place] [address] * CT Abdomen Pelvis W Contrast (04/25/2024 11:46 AM UNDERWRITING SPECIALIST) Anatomical Region Laterality Modality Body N/A Computed Tomogra phy 04/25/2024 11:5 0 AM UNDERWRITING SPECIALIST Narrative 04/25/2024 12:06 PM UNDERWRITING SPECIALIST EXAM DESCRIPTION: CT ABDOMEN PELVIS W CONTRAST [...] by Nery Stevens M.D. T: Report ID: [id number] Reading Location: [id number] Procedure Note Nery Stevens MD - 04/25/2024 [...] by Nery Stevens M.D. T: Report ID: [id number] Reading Location: [place] [address] PROCEDURES Final Result * Urinalysis reflex to microscopic and culture Urine (04/25/2024 10:39 AM UNDERWRITING SPECIALIST) Color, ur Yellow Yellow Clarity, ur Clear [...] for uric acid stone formation. Source: [facility] [employer] Current Interpretive Data was last revised on 2017 Protein, ur ql Negative Negative [facility] Glucose, ur ql Negative Negative [facility] Ketones, ur Negative Negative [facility] Bilirubin, ur Negative Negative [facility] Blood, ur Negative Negative [facility] Urobilinogen, ur <2.0 <2.0 mg/dL [facility] Nitrite, ur Negative Negative [facility] Leukocyte esterase, ur Negative Negative [facility] UA reflex comment Reflex conditions for microscopic UA and culture not met. [facility]IS Urine 04/25/2024 10:3 9 AM UNDERWRITING SPECIALIST 04/25/2024 10:42 AM UNDERWRITING SPECIALIST Yusef Bennett DO LAB MICROBIOLOGY - GENERAL ORDERABLES Final Result Performing Organization Address [facility] de Phone Number [facility]IS [address] [facility] Department [place] [address] * eGFR (04/25/2024 10:35 AM UNDERWRITING SPECIALIST) eGFR >90 >=60 mL/min/1. 73 m2 Comment: [...] reviewed 2021. Blood 04/25/2024 10:3 5 AM UNDERWRITING SPECIALIST 04/25/2024 10:38 AM UNDERWRITING SPECIALIST us Yusef Bennett DO LAB BLOOD ORDERABLES Final Result Performing Organization Address City/[facility] Co de Phone Number LUIS [address] [facility] [place] [address] * (ABNORMAL) Differential, auto (04/25/2024 10:35 AM UNDERWRITING SPECIALIST) Neutrophil abs 8.6(H) 1.5 - 6.5 K/cumm Imm gran abs 0.1 0.0 - 0.1 K/cumm [facility] Lymphocyte abs 2.4 0.8 - 3.3 K/cumm [facility] Monocyte abs 0.6 0.2 - 0.8 K/cumm [facility] Eosinophil abs 0.1 0.0 - 0.5 K/cumm [facility] Basophil abs 0.0 0.0 - 0.1 K/cumm [facility] Neutrophil pct 72.9 % [facility] Comment: Interpretive Data Percent cell count reference ranges are not reported, since discordance with absolute values may lead to misinterpretation of CBC data. Current Interpretive Data was last revised on 2017. Imm gran pct 0.8 % [facility] Comment: Interpretive Data Percent cell count reference ranges are not reported, since discordance with absolute values may lead to misinterpretation of CBC data. Current Interpretive Data was last revised on 2017. Lymphocyte pct 19.8 % [facility] Comment: Interpretive Data Percent cell count reference ranges are not reported, since discordance with absolute values may lead to misinterpretation of CBC data. Current Interpretive Data was last revised on 2017. Monocyte pct 5.4 % [facility] Comment: Interpretive Data Percent cell count reference ranges are not reported, since discordance with absolute values may lead to misinterpretation of CBC data. Current Interpretive Data was last revised on 2017. Eosinophil pct 0.8 % [facility] Comment: Interpretive Data Percent cell count reference ranges are not reported, since discordance with absolute values may lead to misinterpretation of CBC data. Current Interpretive Data was last revised on 2017. Basophil pct 0.3 % [facility] Comment: Interpretive Data Percent cell count reference ranges are not reported, since discordance with absolute values may lead to misinterpretation of CBC data. Current Interpretive Data was last revised on 2017. Blood 04/25/2024 10:3 5 AM UNDERWRITING SPECIALIST 04/25/2024 10:38 AM UNDERWRITING SPECIALIST [facility] B[facility] Final Result Performing Organization Address City/[facility] Co de Phone Number LUIS [address] [place] [address] * (ABNORMAL) CBC with auto differential (04/25/2024 10:35 AM UNDERWRITING SPECIALIST) [facility] WBC 11.8(H) 3.8 - 9.9 K/cumm Hgb 15.3 13.0 - 17.5 g/dL [facility] Hct 46.2 38.9 - 50.3 % [facility] Plt 275 150 - 400 K/cumm [facility] MPV 9.6 9.1 - 12.3 fL [facility] RBC 5.37 4.30 - 5.80 M/cumm [facility] MCV 86.0 81.3 - 96.4 fL [facility] MCH 28.5 27.1 - 33.3 pg [facility] MCHC 33.1 32.3 - 35.7 g/dL [facility] RDW CV 12.7 11.1 - 14.9 % [facility] RDW SD 39.4 35.7 - 48.1 fL [facility] NRBC abs 0.00 0.00 - 0.01 K/cumm [facility] Blood Venous blood specimen / Unknown 04/25/2024 10:35 AM UNDERWRITING SPECIALIST 04/25/2024 10:38 AM UNDERWRITING SPECIALIST Yusef Bennett [facility] BLOOD ORDERABLES Final Result Performing Organization Address City/[facility]/ZIP Co de Phone Number L[address] [place] [address] * Lipase (04/25/2024 10:35 AM UNDERWRITING SPECIALIST) [facility] Lipase 22 10 - 99 Units/L Blood Venous blood specimen / Unknown 04/25/2024 10:35 AM UNDERWRITING SPECIALIST 04/25/2024 10:38 AM UNDERWRITING SPECIALIST Yusef Hector Bennett DO LAB BLOOD ORDERABLES Final Result Performing Organization Address City/[facility]/ZIP Co de Phone Number LUIS [address] [facility] [place] [address] * Comprehensive metabolic panel (04/25/2024 10:35 AM UNDERWRITING SPECIALIST) Sodium 137 135 - 145 mmol/L Potassium, pl 4.7 3.3 - 4.9 mmol/L [facility] Chloride 103 97 - 110 mmol/L [facility] CO2 24 22 - 32 mmol/L [facility] Anion gap 10 2 - 15 mmol/L [facility] BUN 16 6 - 25 mg/dL [facility] Creatinine 0.96 0.80 - 1.30 mg/dL [facility] Glucose 87 70 - 199 mg/dL [facility] Comment: Interpretive Data Fasting glucose >/= 126 [...] 2022. Calcium 9.4 8.5 - 10.3 mg/dL [facility] Bilirubin, total 0.2 0.1 - 1.2 mg/dL [facility] Protein, pl 7.5 6.5 - 8.5 g/dL [facility] Albumin 4.1 3.5 - 5.0 g/dL [facility] Alk phos 88 40 - 130 Units/L [facility] ALT 9 7 - 55 Units/L [facility] AST 17 10 - 50 Units/L [facility] Blood 04/25/2024 10:3 5 AM UNDERWRITING SPECIALIST 04/25/2024 10:38 AM UNDERWRITING SPECIALIST Yusef Hector Bennett LAB BLOOD ORDERABLES Final Result Performing Organization Address City/[facility]/ZIP Co de Phone Number LUIS [address] [place] [address] * (ABNORMAL) Hepatitis panel, acute (01/27/2017 11:07 AM UNDERWRITING SPECIALIST) HepBsAg NONREACT NONREACTIVE 01/27/2017 12:18 PM UNDERWRITING SPECIALIST [facility] [employer] HISTORICAL RESULTS Comment: [employer] using MINDA (chemiluminescent immunoassay) technology. NONREACTIVE: IgM antibodies to Hepatitis B Surface antigen not detected. REACTIVE: IgM antibodies to Hepatitis B Surface antigen detected. Reactive results will be confirmed by neutralization testing. HBsAb qn < 3.10 mIU/mL 01/27/2017 12:07 PM UNDERWRITING SPECIALIST [facility] [employer] HISTORICAL RESULTS Comment: Siemens CentaurXP using MINDA (chemiluminescent immunoassay) technology. 9.99 IU/L or less.....NONREACTIVE: IgM antibodies to Hepatitis B Surface antibody are not detected. 10.00 IU/L or greater..REACTIVE: IgM antibodies to Hepatitis B Surface antibody are detected. Hep B core IgM NONREACT NONREACTIVE 7 12:46 PM UNDERWRITING SPECIALIST [facility] [employer] HISTORICAL RESULTS Comment: Siemens CentaurXP using MINDA (chemiluminescent immunoassay) technology. NONREACTIVE: IgM antibodies to Hepatitis B Core antigen not detected. EQUIVOCAL: IgM antibodies to Hepatitis B Core antigen may or may not be present. Obtain a new specimen and retest. REACTIVE: IgM antibodies to Hepatitis B Core antigen detected. Hep A IgM NONREACT NONREACTIVE 01/27/2017 12:48 PM UNDERWRITING SPECIALIST [facility] [employer] HISTORICAL RESULTS Comment: Siem[employer] CentaurXP using MINDA (chemiluminescent immunoassay) technology. NONREACTIVE: IgM antibodies to Hepatitis A not detected. This does not exclude possibility of exposure to Hepatitis A or early acute infection. EQUIVOCAL:IgM antibodies to Hepatitis A may or may not be present. Suggest recollection and retest. REACTIVE: Antibodies to Hepatitis A detected. Hep C Ab REACTIVE(H) NONREACTIVE 01/27/2017 1:31 PM UNDERWRITING SPECIALIST [employer] HISTORICAL RESULTS Comment: Siemens CentaurXP using MINDA [...] Hepatitis C Virus Note 01/27/2017 1:31 PM UNDERWRITING SPECIALIST [facility] [employer] HISTORICAL RESULTS Comment:NO CONFIRMATION TEST ING REQUIRED DUE TO HIGH REACTIVITY. 01/27/2017 11:0 7 AM UNDERWRITING SPECIALIST 01/27/2017 11:13 AM UNDERWRITING SPECIALIST Narrative [facility] HISTORICAL RESULTS - 01/27/2017 1:31 PM UNDERWRITING SPECIALIST Comment add this test the blood drawn today Mauro Merlos MD LAB MICROBIOLOGY - [facility] ORDERABLES Final Result [facility] HISTORICAL RESULTS from Last 3 Months or Most Recently Relevant to Health Maintenance Insurance [facility] Care Teams Slotter Operator Relationship Specialty Start Date End Date Marychuy Lambert NP [address] [facility] [address] [place] [address] [place] [id number] PCP - General Family Medicine 11/10/23
--- OUTSIDE RECORDS SUMMARY | 2024-06-14 08:06 | XMS_ITS | Continuity of Care Document ---
Author Organization [facility] Address [address] [address] [place] [address] Phone Care Team Providers Care Religious Activities Director Name Role Phone Wally Thorpe MD Unavailable [...] Diagnoses Date Provider Providers Copied on Encounter [facility], [address] [place], [place], [id number], tel:[phone] [facility] No Information [address], [place], [id number] , [place]. tel:[phone] PREV VISIT, NEW, AGE 40-64 [facility], [address] [place], [id number], [place] tel:[phone] [facility] Medicine Physical (chief complaint) Dietary surveillance and counselingRoutine Medical ExamRoutine Medical Exam [address] [facility] [place], [place], [id number] , [place]. tel:[phone] Family History Family Member Type Diagnosis Age [...]
[2024-06-14 08:12] LABS: Alanine Aminotransferase 21 U/L (6-50); Albumin Level 4.4 g/dL (3.5-5.1); Alkaline Phosphatase 90 U/L (38-126); Anion Gap 8 mmol/L (4-12); Aspartate Amino Transferase 17 U/L (17-59); Bilirubin,Total 0.7 mg/dL (0.2-1.3); Blood Urea Nitrogen 14 mg/dL (9-20); Calcium 8.9 mg/dL (8.4-10.2); Carbon Dioxide 24 mmol/L (22-30); Chloride 104 mmol/L (98-107); Estimated CRCL calculation 104 ml/min; Estimated Glomerular Filt Rate > 60; Glucose 121 mg/dL (65-110); Potassium 4.1 mmol/L (3.4-5.0); Sodium 136 mmol/L (137-145)
--- NOTE | 2024-06-14 09:26 | ED_ITS ---
HPI - Dental/Oral General Chief complaint: Dental/Oral Stated complaint: abscessed tooth Time Seen by Provider: 06/14/24 07:36 History of Present Illness HPI Narrative: Pt presents with swelling to left face since middle of night. Pt has history of dental carries and has been trying to get in to see his dentis for dental pain but swelling popped up overnight. Pt denies fever or drainiage. Related Data Home Medications ?Medication ?Instructions ?Recorded ?Confirmed ?Last Taken ?Type glecaprevir 100 mg-pibrentasvir 40 1 tablet PO DAILY 08/29/23 08/29/23 Unknown History mg tablet (Mavyret) omeprazole 40 mg capsule,delayed 40 mg PO DAILY 08/29/23 08/29/23 Unknown History release varenicline tartrate 0.5 mg tablet 0.5 mg PO BID 08/29/23 08/29/23 Unknown History Allergies Allergy/AdvReac Type Severity Reaction Status Date / Time No Known Allergies Allergy Verified 06/14/24 05:08 Review of Systems 2 Review of Systems: All systems reviewed & are unremarkable except as noted in HPI and below PMFSH Past Medical History Medical History Hepatitis C Opiate addiction Surgical History Surgical History H/O arthroscopic knee surgery Family History Family History Father Hypertension Social History Social History Social History: The patient smoked 1 pack a cigarettes a day. He is single and does not have any children. 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 The patient has a history of IV drug use. He does not have a durable power litigation attorney for healthcare. Code status full code Smoking packs per day: 1 Smoking cigarettes per day: 20.0 Years smoked: 30 Smoking pack-years: 30.00 Smoking status: Current some day smoker Tobacco type: cigarettes Alcohol intake: never Substance use: former Substance use type: opiates Other substance usage details: Fentanyl and other Lack of Transportation: No Lack of Food: Never True Current Housing: I Have Housing Concerned About Future Housing: Decline to Answer Difficulty Paying Gas/Electric Bills: Decline to Answer Difficulty Paying for Meds: Decline to Answer Currently Unemployed: Decline to Answer Education: Decline to Answer Difficulty w/ Childcare or Family Care: No Gender identity (if verbalized by the patient): Male Spiritual care concerns: No Exam 2 Const: General: healthy appearing Nutritional Appearance: well nourished Orientation/consciousness: patient oriented x3 Limitations: no limitations HENMT: Teeth and gingiva: abnormal tooth and associated gingiva (multiple dental carries no abscess felt in gums) Other: swelling to left face but difficlut to appreciate any fluctuance of defined abscess. Neck: Neck: normal visual inspection and no lymphadenopathy Resp: Effort & Inspection: normal respiratory effort Auscultation: clear to auscultation bilaterally Cardio: Rate: regular rate Rhythm: regular rhythm Skin: General skin exam: normal color Wounds: no wounds Neuro: General: patient oriented x3, moves all extremities, no focal motor deficits and CN's II-XI intact bilaterally Speech: normal speech Extrem: General: normal to inspection and no clubbing, cyanosis or edema Psych: Mental Status: mental status grossly normal Affect: normal affect Attitude: cooperative Course Vital Signs Vital signs: Vital Signs Temperature 97.9 F 06/14/24 05:08 Pulse Rate 99 06/14/24 05:08 Respiratory Rate 17 06/14/24 05:08 Blood Pressure 175/103 H 06/14/24 05:08 Pulse Oximetry 99 06/14/24 05:08 Oxygen Delivery Room Air 06/14/24 05:08 Temperature 97.9 F 06/14/24 05:08 Pulse Rate 90 06/14/24 09:54 Respiratory Rate 19 06/14/24 09:54 Blood Pressure 166/97 H 06/14/24 09:54 Pulse Oximetry 98 06/14/24 09:54 Oxygen Delivery Room Air 06/14/24 05:08 MDM - Dental/Oral MDM Narrative Medical decision making narrative: Pt has facial swelling likely dental in origin. will get CT and labs. wbc slightly elevated pt has soft tissue abscess. discussed with pt last time had antibiotics and resolved. will try that again with pain meds and close follow up with dentist. Lab Data 06/14/24 07:51 06/14/24 07:51 Labs: Lab Results 06/14/24 Range/Units 07:51 WBC 13.8 H (4.5-10.0) K/mm3 RBC 5.25 (4.6-6.20) M/mm3 Hgb 15.3 D (14.0-18.0) g/dL Hct 45.8 (42.0-52.0) % MCV 87.2 (80-100) fl MCH 29.1 (26-34) pg MCHC 33.4 (32-36) g/dl RDW 12.7 (11.5-14.5) % Plt Count 276 (150-375) k/mm3 MPV 9.2 (7.4-10.4) fl Immature Gran % (Auto) 0.4 (0-0.5) % Neut % (Auto) 81.6 H (45.5-73.1) % Lymph % (Auto) 11.7 L (18.3-44.2) % [place] % (Auto) 5.9 (2.6-8.5) % Eos % (Auto) 0.2 (0-4.4) % Baso % (Auto) 0.2 (0.2-1.2) % Lymph # (Auto) 1.61 (0.9-3.2) K/mm3 [place] # (Auto) 0.8 H (0.1-0.6) K/mm3 Eos # (Auto) 0.0 (0-0.3) K/mm3 Baso # (Auto) 0.0 (0.0-0.1) K/mm3 Abs Immat Gran (auto) 0.06 H (0.00-0.031) K/mm3 Absolute Neuts (auto) 11.2 H (1.3-6.7) K/mm3 Absolute Nucleated RBC 0.000 (0.0-0.012) K/mm3 Nucleated RBC % 0.0 (0.0-0.2) % Sodium 136 L (137-145) mmol/L Potassium 4.1 (3.4-5.0) mmol/L Chloride 104 (98-107) mmol/L Carbon Dioxide 24 (22-30) mmol/L Anion Gap 8 (4-12) mmol/L BUN 14 (9-20) mg/dL Creatinine 0.70 (0.7-1.3) mg/dL Estim Creat Clear Calc 104 ml/min Estimated GFR > 60 (59 - ) Glucose 121 H (65-110) mg/dL Calcium 8.9 (8.4-10.2) mg/dL Total Bilirubin 0.7 (0.2-1.3) mg/dL AST 17 (17-59) U/L ALT 21 (6-50) U/L Alkaline Phosphatase 90 (38-126) U/L Total Protein 8.0 (6.3-8.2) g/dL Albumin 4.4 (3.5-5.1) g/dL Discharge Plan Discharge Clinical Impression: Dental abscess Patient Disposition: Home, Self-Care Condition: Stable Instructions: Antibiotic Form, Dental Abscess (ED) Additional Instructions: follow up with dentist rohini Patient Language: Azeri Prescriptions: New clindamycin HCl 300 mg capsule 300 mg PO Q6H Qty: 40 0RF oxycodone-acetaminophen [Percocet] 5-325 mg tablet 1 tablet PO Q6H PRN (Reason: pain) Qty: 10 0RF No Action omeprazole 40 mg capsule,delayed release(DR/EC) 40 mg PO DAILY varenicline tartrate 0.5 mg tablet 0.5 mg PO BID Mavyret 100-40 mg tablet 1 tablet PO DAILY Follow-up/Referrals: Yusef Mcghee MD [Primary Care Provider] - Stand Alone Forms: Work/School Release IP
[2024-06-14 09:54] VITALS: BP 166/97; PULSE 90; RESP 19; O2SAT 98
== END 2024-06-14 09:56 | disposition home or self-care (01) ==
PROVIDERS: Emergency Provider Emergency Medicine; PCP Internal Medicine
DX: K04.7 Periapical abscess without sinus (principal); F17.210 Nicotine dependence, cigarettes, uncomplicated
CPT/HCPCS: 36415; 70487; 80053; 85025; 96365; 96375; 99284; J1885; Q9967

== ENCOUNTER 2024-10-03 08:16 | Emergency (ER) | payer OTHER, SELFPAY ==
[2024-10-03 08:23] VITALS: BP 121/62; PULSE 88; RESP 16; TEMP 36.8; O2SAT 96
--- NOTE | 2024-10-03 08:25 | ED.SKABFB ---
HPI - Skin/Abscess/Foreign Bdy General Chief complaint: Skin/Abscess/Foreign Body Stated complaint: Rash Time Seen by Provider: 10/03/24 08:17 Patient presents to the [facility] with complaints of itchy rash to face, neck, both arms, and chest/ abdomen that began yesterday. Patient noted he is significantly prone to poison darron type rash is in usually gets this several times per year. Patient noted he was working in his yd came in did wash with Mora and still usually gets a rash. Patient reports using a bleach bath as well as topical Darron dry with some relief of symptoms. Patient noted he usually needs to be on steroids and wanted to get ahead of this. Denies difficulty breathing, tongue swelling, lip swelling, or vision changes. Related Data Home Medications ?Medication ?Instructions ?Recorded ?Confirmed ?Last Taken ?Type glecaprevir 100 mg-pibrentasvir 40 1 tablet PO DAILY 08/29/23 08/29/23 Unknown History mg tablet (Mavyret) omeprazole 40 mg capsule,delayed 40 mg PO DAILY 08/29/23 08/29/23 Unknown History release varenicline tartrate 0.5 mg tablet 0.5 mg PO BID 08/29/23 08/29/23 Unknown History Allergies Allergy/AdvReac Type Severity Reaction Status Date / Time No Known Allergies Allergy Verified 10/03/24 08:28 [facility] Past Medical History Medical History Hepatitis C Opiate addiction Surgical History Surgical History H/O arthroscopic knee surgery Family History Family History Father Hypertension Social History Social History Social History: The patient smoked 1 pack a cigarettes a day. He is single and does not have any children. 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 The patient has a history of IV drug use. He does not have a durable power erisa attorney for healthcare. Code status full code Smoking packs per day: 1 Smoking cigarettes per day: 20.0 Years smoked: 30 Smoking pack-years: 30.00 Smoking status: Current some day smoker Tobacco type: cigarettes Alcohol intake: never Substance use: former Substance use type: opiates Other substance usage details: Fentanyl and other Lack of Transportation: No Lack of Food: Never True Current Housing: I Have Housing Concerned About Future Housing: Decline to Answer Difficulty Paying Gas/Electric Bills: Decline to Answer Difficulty Paying for Meds: Decline to Answer Currently Unemployed: Decline to Answer Education: Decline to Answer Difficulty w/ Childcare or Family Care: No Gender identity (if verbalized by the patient): Male Spiritual care concerns: No Exam Const: General: healthy appearing and no acute distress Nutritional Appearance: well nourished Orientation/consciousness: patient oriented x3 Limitations: no limitations Eyes: Conjunctivae: conjunctivae normal Pupils: Equal, round and reactive pupils present EOM: EOMs intact bilaterally Direct Ophthalmoscopy: no photophobia Other: Minimal redness surrounding periorbital area- no significant rash noted. Neck: Neck: normal visual inspection and no lymphadenopathy Other: diffuse papular rash noted Resp: Effort & Inspection: normal respiratory effort Auscultation: clear to auscultation bilaterally Cardio: Rhythm: regular rhythm Skin: General skin exam: normal color Rashes: rash noted Wounds: no wounds Other: diffuse papular rash noted to bilateral forearms, neck, and chest. Diffuse erythema on forehead and around bilateral eyes no obvious rash noted to face Neuro: General: patient oriented x3 Speech: normal speech Gait exam (Neuro): Normal gait present Extrem: General: normal to inspection and no pedal edema Psych: Mental Status: mental status grossly normal Affect: normal affect Attitude: cooperative Course Course Level of Care: Express Care Visit Vital Signs Vital signs: Vital Signs Temperature 98.2 F 10/03/24 08:23 Pulse Rate 88 10/03/24 08:23 Respiratory Rate 16 10/03/24 08:23 Blood Pressure 121/62 10/03/24 08:23 Pulse Oximetry 96 10/03/24 08:23 Oxygen Delivery Room Air 10/03/24 08:23 Temperature 98.2 F 10/03/24 08:23 Pulse Rate 88 10/03/24 08:23 Respiratory Rate 16 10/03/24 08:23 Blood Pressure 121/62 10/03/24 08:23 Pulse Oximetry 96 10/03/24 08:23 Oxygen Delivery Room Air 10/03/24 08:23 MDM - Skin/Abscess/Foreign Bdy MDM Narrative Medical decision making narrative: spoke with patient about usual taper. Will use a longer 12 day taper. Discharge instructions reviewed with patient, as well as provided in writing per nursing staff. The instructions also include specific and strict return/GO TO THE ER as well as f/u information. All questions have been answered, and the patient deny any further questions with discharge and discharge plan. Differential Diagnosis Differential diagnosis: Likely abscess of skin or subcutaneous tissue, allergic reaction to drug, cellulitis, insect bites, impetigo and contact dermatitis Discharge Plan Discharge Clinical Impression: Allergic dermatitis due to poison darron Patient Disposition: Home Condition: Stable Instructions: Antibiotic Form, Acute Rash (ED), Cold Compress or Soak (ED) Additional Instructions: Prevention is always better than treatment. Learn to identify poison darron, oak, and sumac and avoid it. Wear long sleeves, long pants, shoes, and socks. If you touched the plant, try to keep your hands away from your eyes, mouth, and face. Wash the skin thoroughly with soap and cool water as soon as possible. Scrub under the fingernails with a brush to prevent spreading of the resin to other parts of the body by touching or scratching. Remember to wash any clothing with soap and hot water as the resin can persist for many months and cause further dermatitis. Use calamine lotion on the affect area. IF symptoms get worse to follow up with your primary care provider or seek ER visit if you developing difficulty breathing, weakness, dizziness. Patient Language: South African Prescriptions: New prednisone 10 mg tablet 10 mg PO DIRECTED Qty: 30 0RF Rx Instructions: take 4 tablets for 3 days, 3 tablets for 3 days, 2 tablets for 3 days, 1 tablet for 3 days. triamcinolone acetonide 0.1 % cream 1 applic topical TID Qty: 80 0RF No Action omeprazole 40 mg capsule,delayed release(DR/EC) 40 mg PO DAILY varenicline tartrate 0.5 mg tablet 0.5 mg PO BID Mavyret 100-40 mg tablet 1 tablet PO DAILY oxycodone-acetaminophen [Percocet] 5-325 mg tablet 1 tablet PO Q6H PRN (Reason: pain) Qty: 10 0RF Follow-up/Referrals: Litzy,Pan Srivastava MD [Primary Care Provider] - Time of Disposition: 08:36
== END 2024-10-03 08:40 | disposition home or self-care (01) ==
PROVIDERS: Emergency Provider Nurse Practitioner Family; PCP Family Medicine
DX: L23.7 Allergic contact dermatitis due to plants, except food (principal); F17.210 Nicotine dependence, cigarettes, uncomplicated; Z86.19 Personal history of other infectious and parasitic diseases
CPT/HCPCS: 99213; G0463

== ENCOUNTER 2025-01-07 16:49 | Emergency (ER) | payer OTHER, SELFPAY ==
--- NOTE | 2025-01-07 16:52 | ED.DENTAL ---
HPI - Dental/Oral General Chief complaint: Dental/Oral Stated complaint: Dental Pain Time Seen by Provider: 01/07/25 17:14 Source: patient, RN notes reviewed and old records reviewed Mode of arrival: ambulatory Limitations: no limitations History of Present Illness HPI Narrative: 49-year-old male presents to the [facility] with pain, swelling to the left lower anterior dental. Has very poor dentition, multiple teeth in decay. Denies fevers. Teeth map:  1. Related Data Allergies Allergy/AdvReac Type Severity Reaction Status Date / Time No Known Allergies Allergy Verified 01/07/25 17:01 Review of Systems Review of Systems: All systems reviewed & are unremarkable except as noted in HPI and below Constitutional: Constitutional: Reports no additional constitutional complaints ENT: Reports as per HPI and Reports dental pain Cardiovascular: Cardiovascular: Reports no additional cardiovascular complaints, Denies chest pain and Denies dyspnea Respiratory: Respiratory: Reports no additional respiratory complaints, Denies chest congestion, Denies cough and Denies dyspnea Musculoskeletal: Musculoskeletal: Reports no additional musculoskeletal complaints Integumentary/Breasts: Skin/Breast: Reports system reviewed and no additional complaints, except as docu PMFSH Past Medical History Medical History Hepatitis C Opiate addiction Surgical History Surgical History H/O arthroscopic knee surgery Family History Family History Father Hypertension Social History Social History Social History: The patient smoked 1 pack a cigarettes a day. He is single and does not have any children. 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 The patient has a history of IV drug use. He does not have a durable power lithostripper for healthcare. Code status full code Smoking packs per day: 1 Smoking cigarettes per day: 20.0 Years smoked: 30 Smoking pack-years: 30.00 Smoking status: Current some day smoker Tobacco type: cigarettes Alcohol intake: never Substance use: former Substance use type: opiates Other substance usage details: Fentanyl and other Lack of Transportation: No Lack of Food: Never True Current Housing: I Have Housing Concerned About Future Housing: Decline to Answer Difficulty Paying Gas/Electric Bills: Decline to Answer Difficulty Paying for Meds: Decline to Answer Currently Unemployed: Decline to Answer Education: Decline to Answer Difficulty w/ Childcare or Family Care: No Gender identity (if verbalized by the patient): Male Spiritual care concerns: No Comments At the time of my signature, I reviewed and agree with the nursing past medical, surgical, social, and family history. There is no relevant family history pertinent to the patient complaint. Exam Const: General: cooperative, healthy appearing, comfortable, no acute distress, well developed, alert and well nourished Nutritional Appearance: well nourished and obese Orientation/consciousness: patient oriented x3 Limitations: no limitations HENMT: Head: normal to inspection Teeth and gingiva: abnormal tooth and associated gingiva (Left lower ), caries and poor dentition Eyes: General: appearance normal, both eyes and all related structures Alignment and Position: alignment normal Neck: Neck: normal visual inspection, full ROM, no lymphadenopathy and no meningeal signs Chest: Chest palpation & inspection: normal inspection of the chest Resp: Effort & Inspection: normal respiratory effort and able to speak in complete sentences Cardio: Rate: regular rate Skin: General skin exam: normal color and no rashes or lesions noted Neuro: General: patient oriented x3, gait normal, moves all extremities and no meningeal signs Cognition (Neuro): normal cognition Speech: normal speech Gait exam (Neuro): Normal gait present Extrem: General: normal to inspection, full ROM, capillary refill normal and normal gait Psych: Appearance: grossly normal and well kempt Mental Status: mental status grossly normal Speech and movement: Normal speech and movement present and Clear speech present Affect: normal affect Attitude: cooperative Course Course Level of Care: Express Care Visit Vital Signs Vital signs: Vital Signs Temperature 98.7 F 01/07/25 16:55 Pulse Rate 76 01/07/25 16:55 Respiratory Rate 18 01/07/25 16:55 Blood Pressure 127/94 H 01/07/25 16:55 Pulse Oximetry 98 01/07/25 16:55 Oxygen Delivery Room Air 01/07/25 16:55 Temperature 98.7 F 01/07/25 16:55 Pulse Rate 76 01/07/25 16:55 Respiratory Rate 18 01/07/25 16:55 Blood Pressure 127/94 H 01/07/25 16:55 Pulse Oximetry 98 01/07/25 16:55 Oxygen Delivery Room Air 01/07/25 16:55 Reviewed MDM - Dental/Oral MDM Narrative Medical decision making narrative: Patient sitting in exam room. Patient is nontoxic, vitals are stable. Patient presents with dental pain, history of abscesses. Reports that he has had 2 teeth removed and needs additional dental work. Has seen [facility] dental in [facility]. Patient prescribed an antibiotic. Patient is appropriate for outpatient treatment with close follow-up Discharge instructions reviewed with patient, as well as provided in writing per nursing staff. The instructions also include specific and strict return/GO TO THE ER as well as f/u information. All questions have been answered, and the patient deny any further questions with discharge and discharge plan. Some parts of this dictation were generated by voice recognition software and may contain typographical and/or grammatical inaccuracies. Differential Diagnosis Differential diagnosis: Likely gingival abscess, dental caries, toothache, dental abscess and fracture of tooth Critical Care Time Critical Care Time Critical Care Time: No Discharge Plan Discharge Clinical Impression: Dental decay, Dental abscess Patient Disposition: Home Condition: Stable Instructions: Antibiotic Form, Dental Abscess (ED), Toothache (ED) Additional Instructions: Finish the entire course of antibiotics Minford teeth been using good mouthwash twice daily After every time you eat be sure to use salt water rinses. Apply ice to face to help with pain. Take Tylenol alternating with Motrin as needed for pain. You can alternate every 4 hours You need to follow-up with a dental provider as soon as possible for further evaluation and treatment. A list of dental providers has been given to you Follow up with a Primary Care Provider (PCP) about medical needs. A PCP can help keep you healthy by preventive medicine and screening. Go to the ER for New or worsening symptoms. Patient Language: Azeri Prescriptions: New penicillin V potassium 500 mg tablet 500 mg PO QID 7 Days Qty: 28 0RF Follow-up/Referrals: Litzy,Pan Srivastava MD [Primary Care Provider, Unknown] - 2 Weeks Stand Alone Forms: Work/School Release IP Time of Disposition: 17:19
[2025-01-07 16:55] VITALS: BP 127/94; PULSE 76; RESP 18; TEMP 37.1; O2SAT 98
== END 2025-01-07 17:24 | disposition home or self-care (01) ==
PROVIDERS: Emergency Provider Nurse Practitioner; PCP Family Medicine
DX: K02.9 Dental caries, unspecified (principal); K04.7 Periapical abscess without sinus; F17.210 Nicotine dependence, cigarettes, uncomplicated
CPT/HCPCS: 99213; G0463

== ENCOUNTER 2025-01-09 13:50 | Emergency (ER) | payer OTHER, SELFPAY ==
[2025-01-09 13:53] VITALS: BP 171/87; PULSE 89; RESP 17; TEMP 36.3; O2SAT 96
--- NOTE | 2025-01-09 14:06 | PC.NURSE ---
patient seen walking out of ER with steady gait. told security he was leaving.
--- OUTSIDE RECORDS SUMMARY | 2025-01-09 14:11 | XMS_ITS | Clinical Summary ---
Author Organization [facility] Address [address] [place] [address] Phone Care Team Providers Care Quality Engineer Name Role Phone Unavailable Primary Care Provider Unavailabl e Allergies No known active allergies Medications No known medications Social History Tobacco Use Types Packs/Day Years [...] Health Maintenance Due Date Last Done Comments DTAP/TDAP/TD VACCINES (1 - Tdap) 1992 HEPATITIS B VACCINES (1 of 3 - 19+ 3-dose series) 06/23 COLORECTAL SCREENING 2018 Colorectal Cancer Screening 2018 FIT-DNA Q 3 years 2018 FIT/FOBT Q 1 year 2018 Flex Sig/CT Colonography Q 5 years 2018 ZOSTER VACCINE (1 of 2) 07/14/2023 INFLUENZA VACCINE (#1) 2024 Insurance [facility] MEDICAID
--- OUTSIDE RECORDS SUMMARY | 2025-01-09 14:11 | XMS_ITS | Patient Health Record ---
Author Organization [facility] Address [address] [place] [address] Care Team Providers Care Rrt Name Role Phone Pamela Barraza Primary Care Provider Reason For Referral No Information Immunizations Vaccine Route Administration Date Status Comme nts PPD SC Subcutaneous 10/06/2018 Administered Tolerat ed well Social History Tobacco Use: Social History Observation Description Date Details (start date - stop date) Current Smoker NA - NA Social History Drugs/Alcohol: Social Info Question Answer Notes Alcohol Screen (Audit-C) Did you have a drink containing alcohol in the past year? No Points 0 Interpretation Negative Drugs Have you used drugs other than those for medical reasons in the past 12 months? Yes Heroin? Yes Route? Injected Caffeine Intake: none Tobacco Use: Social Info Question Answer Notes Tobacco Use/Smoking Are you a current smoker How often do you smoke cigarettes? every day How many cigarettes a day do you smoke? 6-10 How soon after you wake up do you smoke your first cigarette? 31-60 minutes Problems Problem Type SNOMED Code ICD Code Onset Dates Problem Status W/U Status Risk Notes Problem Acquired hallux valgus (03460026) Hallux valgus (acquired), right foot (M20.11) Active confirmed Problem Opioid abuse (9490655) Heroin abuse (F11.10) Active confirmed Problem Sciatica (71999018) Low back pain with right-sided sciatica, unspecified [...] Start Date Coverage End Date KRISHNA Francisco 1 [facility] [address] [place] [address] [id number] Victor Hugo Peacock Self - patient is the insured Medical (General) History Medical History History ICD Code MRSA in leg Hep [id number] Surgical History Surgery Date(Month/Year) surgery to leg for MRSA 2013? Hospitalization History Reason Date(Month/Year) [facility]-ER for foot 08/22/18
--- OUTSIDE RECORDS SUMMARY | 2025-01-09 14:11 | XMS_ITS | Clinical Summary ---
Author Organization [facility] Address [facility] [place] [address] Care Team Providers Care House Piping Inspector Name Role Phone Marychuy Lambert NP Primary Care Provider [phone] Allergies No known active allergies Medications nicotine [...] by mouth every 12 (twelve) hours Active clindamycin (CLEOCIN) 300 mg capsule Take 1 capsule (300 mg total) by mouth every 6 (six) hours 06/14/2024 Active oxyCODONE-aceta minophen (PERCOCET) 5-325 mg per tablet Take by mouth every 6 (six) hours as needed 06/14/2024 Active oxyCODONE-aceta minophen (PERCOCET) 5-325 mg per tabletIndicatio ns:Pain Take 1 tablet by mouth every 6 (six) hours as needed for pain 20 tablet 08/26/2024 Active Active Problems Problem Noted Date Diagnosed [...] Encounters Date Type Department Care Team Description 12/13/2024 Telephone [facility] Orthopedics and Sports Medicine [address] [place] [address] [address] [place] [address] Joe Hoskins, DO med refill 12/08/2024 Nurse Triage [facility] Family Medicine at [address] [place] [address] Marychuy Lambert NP 11/12/2024 Documentation [facility] Medicine [address] [place] [address] [address] [place] [address] Vanna Wyatt MA 11/09/2024 Documentation [facility] Medical [facility] Orthopedics and Sports Medicine [address] [place] [address] [address] [place] [address] Vanna Wyatt MA 10/26/2024 Telephone [facility] at [address] [place] [address] Marychuy Lambert NP Needs appt letter sent 10/21/2024 Telephone [facility] Medicine at [address] [place] [address] Marychuy Lambert NP surgical clearance appointment from Last 3 Months Surgical History Surgery [...] on file Legal Sex Male 9:06 AM DATABASE DESIGNER Gender Identity Not on file Sexual Orientation Not on file Obstetrics History Last Filed Vital Signs Vital Sign Reading Time Taken Comments Blood Pressure 154/89 04/25/2024 3:30 PM DATABASE DESIGNER Pulse 72 04/25/2024 3:30 PM DATABASE DESIGNER Temperature 36.6 C (97.8 F) 04/25/2024 10:03 AM DATABASE DESIGNER Respiratory Rate 18 04/25/2024 3:30 PM DATABASE DESIGNER Oxygen Saturation 96% 04/25/2024 3:30 PM DATABASE DESIGNER Inhaled Oxygen Concentration - - Weight 136.1 kg (300 lb) 04/25/2024 10:03 AM DATABASE DESIGNER Height 165.1 cm (5' 5) 04/25/2024 10:03 AM DATABASE DESIGNER Body Mass Index 49.92 04/25/2024 10:03 AM DATABASE DESIGNER Plan of Treatment Health Maintenance Due Date Last Done Comments Colon Cancer Screening-Colonoscopy 1973 Prostate Cancer Screening-PSA 1973 Regular Well Visit/Exam 18-64 07/14/1991 Pneumococcal vaccine <65 (1 of 2 - PCV) 1992 Zoster Vaccine (1 of 2) 07/14/2023 Depression Screening 11/09/2024 11/10/2023 Covid-19 Vaccine (2 - 2024- season) 11/22/202402/2021 Influenza Vaccine (#1) 2024 DTaP/Tdap/Td Vaccine (2 - Tdap) 01/26/2027 7 Hepatitis B Screening Completed 01/27/2017 Hepatitis C Screening Completed 07/25/2023 , 01/27/2017, 01/26/2017 Procedures Procedure Name Priority Date/Time Associated Diagnosis Comments HEPATITIS PANEL, ACUTE Routine 01/27/2017 11:07 AM DATABASE DESIGNER from Last 3 Months or Most Recently Relevant to Health Maintenance Results * (ABNORMAL) Hepatitis panel, acute (01/27/2017 11:07 AM DATABASE DESIGNER) HepBsAg NONREACT NONREACTIVE Comment: Siemens [employer] using MINDA (chemiluminescent immunoassay) technology. NONREACTIVE: IgM antibodies to Hepatitis B Surface antigen not detected. REACTIVE: IgM antibodies to Hepatitis B Surface antigen detected. Reactive results will be confirmed by neutralization testing. HBsAb qn < 3.10 mIU/mL 01/27/2017 12:07 PM [facility]OR[facility] RES[facility] Comment: Siemens CentaurXP using MINDA (chemiluminescent immunoassay) technology. 9.99 IU/L or less.....NONREACTIVE: IgM antibodies to Hepatitis B Surface antibody are not detected. 10.00 IU/L or greater..REACTIVE: IgM antibodies to Hepatitis B Surface antibody are detected. Hep B core IgM NONREACT NONREACTIVE 7 12:46 PM [employer] [facility] [employer] [facility] HISTORICAL RESULTS Comment: Siemens CentaurXP using MINDA (chemiluminescent immunoassay) technology. NONREACTIVE: IgM antibodies to Hepatitis B Core antigen not detected. EQUIVOCAL: IgM antibodies to Hepatitis B Core antigen may or may not be present. Obtain a new specimen and retest. REACTIVE: IgM antibodies to Hepatitis B Core antigen detected. Hep A IgM NONREACT NONREACTIVE 01/27/2017 12:48 PM [employer] [facility] [employer] [facility] HISTORICAL RESULTS Comment: Siemens CentaurXP using MINDA (chemiluminescent immunoassay) technology. NONREACTIVE: IgM antibodies to Hepatitis A not detected. This does not exclude possibility of exposure to Hepatitis A or early acute infection. EQUIVOCAL:IgM antibodies to Hepatitis A may or may not be present. Suggest recollection and retest. REACTIVE: Antibodies to Hepatitis A detected. Hep C Ab REACTIVE(H) NONREACTIVE 01/27/2017 1:31 PM [facility] [employer] [facility] HISTORICAL RESULTS Comment: Siemens CentaurXP using MINDA [...] Hepatitis C Virus Note 01/27/2017 1:31 PM [facility] [employer] [facility] HISTORICAL RESULTS Comment:NO CONFIRMATION TEST ING REQUIRED DUE TO HIGH REACTIVITY. 01/27/2017 11:0 7 AM DATABASE DESIGNER 01/27/2017 11:13 AM [facility] HISTORICAL RESULTS - 01/27/2017 1:31 PM DATABASE DESIGNER Comment add this test the blood drawn today Mauro Merlos MD LAB MICROBIOLOGY - [facility] ORDERABLES Final Result [facility] HISTORICAL RESULTS from Last 3 Months or Most Recently Relevant to Health Maintenance Insurance Care Teams House Piping Inspector Relationship Specialty Start Date End Date Marychuy Lambert NP [address] [facility] [address] [address] PCP - General Family Medicine 11/10/23
--- OUTSIDE RECORDS SUMMARY | 2025-01-09 14:11 | XMS_ITS | Clinical Summary ---
Author Organization [facility] Address [address] [place] [address] Care Team Providers Care Pond Scaler Name Role Phone Marychuy Lambert ROLLER SETTER-MITER OPERATOR Primary Care Provider + Source Comments [facility] [employer],non-owned Affiliates and Associated Physician Practices is amultiple site organization consisting of ambulatory clinics and hospital sitesin [place], [place], [place] and [place]. This disclosure is being madepursuant to the Care Everywhere program and may not contain all information available regarding this patient. Last updated 17.[facility] [employer] Allergies No known active allergies Medications * Be aware that medications may not be up to date on this document. Alwaysverify current medications with the patient. AMINO ACIDS PO Take by mouth once [...] at Not on file Legal Sex Male 1:13 PM [employer] Gender Identity Not on file Sexual Orientation [...] 01/12/2024 8:48 AM CDT Plan of Treatment Health Maintenance [...] 1992 ZOSTER VACCINE (1 of 2) 07/14/2023 DEPRESSION SCREENING 03/24/2024 COVID-19 VACCINE (2 - 2024- season) 2024 10/02/2020 INFLUENZA VACCINE (#1) 2024 SCREENING FOR DIABETES 10/05/2026 10/06/2023, 2023 HIV [...] detected Not detected 10/07/2023 5:24 AM CDT [facility] Blood BLOOD SPECIMEN / Unknown Lab Venipuncture / Unknown 10/06/2023 10:38 AM CDT 10/06/2023 11:03 AM CDT Narrative [facility] - 10/07/2023 5:24 AM CDT The Hepatitis C viral (HCV) RNA analysis utilized a serum sample, real-time reverse banking paralegal PCR, and is reported as Not Detected, [...] the isolation of HCV RNA with reverse banking paralegal of genomic HCV RNA followed by real-time PCR in the presence of an unrelated RNA internal control. The internal control ensures that RNA is isolated, and that no general significant inhibitors of the RT-PCR process are present. The analysis was performed using a [place] FDA approved test methodology. Dolores Marrero APRN-MITER OPERATOR LAB - CHEMISTRY MARCUS LO Final Result [facility] [address] [place] [address], [facility] [phone] * (ABNORMAL) COMPREHENSIVE METABOLIC PANEL (10/06/2023 10:38 AM CDT) BUN 24 7 - 26 mg/dL 10/06/2023 12:09 PM [facility] Creatinine 1.00 0.71 - 1.16 mg/dL 10/06/2023 12:09 PM [facility] Sodium 140 136 - 145 mmol/L 10/06/2023 12:09 PM [facility] Potassium 4.2 3.5 - 4.5 mmol/L 10/06/2023 12:09 PM [facility] Chloride 107 98 - 107 mmol/L 10/06/2023 12:09 PM [facility] CO2 21(L) 22 - 29 mmol/L 10/06/2023 12:09 PM [facility] Glucose 99 70 - 115 mg/dL 10/06/2023 12:09 PM [facility] Calcium 9.7 8.4 - 10.2 mg/dL 10/06/2023 12:09 PM [facility] Protein Total 7.6 6.0 - 8.3 g/dL 10/06/2023 12:09 PM [facility] Albumin 4.1 3.4 - 5.0 g/dL 10/06/2023 12:09 PM [facility] Bilirubin Total 0.3 0.2 - 1.2 mg/dL 10/06/2023 12:09 PM [facility] Alkaline Phosphatase 93 40 - 150 U/L 10/06/2023 12:09 PM [facility] ALT 12 5 - 55 U/L 10/06/2023 12:09 PM [facility] AST 14 5 - 34 U/L 10/06/2023 12:09 PM [facility] Anion Gap 12 6 - 16 10/06/2023 12:09 PM [facility] BUN/Creatinine Ratio 24(H) 7 - 23 10/06/2023 12:09 PM [facility] Osmolality Calculated 294 275 - 295 mOsm/kg 10/06/2023 12:09 PM [facility] Albumin/Globulin Ratio 1.2 1.1 - 2.3 10/06/2023 12:09 PM [facility] eGFR by CKD-EPI >90 >=90 mL/min/1.7 3 m2 10/06/2023 12:09 PM [facility] Blood BLOOD SPECIMEN / Unknown Lab Venipuncture / Unknown 10/06/2023 10:38 AM CDT 10/06/2023 11:30 AM T us Dolores Marrero ROLLER SETTER-MITER OPERATOR LAB - CHEMISTRY ORDE TERESITA Final Result [address] [address], [facility] [phone] * HIV-1 HIV-2 ANTIBODY + HIV P24 AG PANEL (07/25/2023 1:13 PM CDT) HIV Antigen/Antibod y 1 & 2 Non-reacti ve Non-react siobhan 07/25/2023 3:36 PM [facility] Comment:No Laboratory eviden ce of HIV infection. Blood BLOOD SPECIMEN / Unknown Lab Venipuncture / Unknown 07/25/2023 1:13 PM CDT 07/25/2023 1:36 PM CDT us Dolores Marrero ROLLER SETTER-MITER OPERATOR LAB - CHEMISTRY MARCUS LO Final Result [facility] [address] [place] [address], [place] [phone] from Last 3 Months or Most Recently Relevant to Health Maintenance Insurance [employer] Care Teams Pond Scaler Relationship Specialty Start Date End Date Marychuy Lambert, ROLLER SETTER-MITER OPERATOR [address], [address] [place] [address] PCP - General 01/12/24
== END 2025-01-09 14:10 | disposition left against medical advice (07) ==
LOC: ANHED 14:09
PROVIDERS: PCP Family Medicine
DX: K08.89 Other specified disorders of teeth and supporting structures (principal)
CPT/HCPCS: 99199